=== PATIENT | male | born 1965 | race Hispanic/Latino ===

== ENCOUNTER 2017-09-22 09:46 | Observation (INO) | payer SELFPAY ==
[2017-09-22 10:36] LABS: #Eosinphils 0.2 thou/uL (0.0-0.7); #Lymphocytes 1.6 thou/uL (1.20-3.40); #Monocytes 0.7 thou/uL (0.11-0.59); #Neutrophils 4.8 thou/uL (1.40-6.50); %Basophils 0.6 % (0.0-1.0); %Lymphocytes 22.3 % (21.0-51.0); %Monocytes 8.8 % (0.0-10.0); %Neutrophils 65.2 % (42.0-75.0); Hemoglobin 13.6 g/dL (14.0-18.0); Mean Corpuscular HGB CONC 34.1 g/dL (32.0-36.0); Mean Corpuscular Hemoglobin 30.7 pg (27.0-31.0); Mean Corpuscular Volume 90.1 fl (80.0-94.0); Mean Platelet Volume 6.8 fL (7.4-10.4); Platelet Count 237 thou/uL (130-400); RBC Distribution Width 12.4 % (11.5-14.5); Red Blood Cell (RBC) Count 4.43 mill/uL (4.70-6.10); White Blood Cell (WBC) Count 7.3 thou/uL (4.8-10.8)
[2017-09-22] MEDS ORDERED: hydrALAZINE 20 MG/ML VIAL ONE ×2 (10:40→11:49)
[2017-09-22 10:56] LABS: ALT (SGPT) 13 U/L (8-55); AST (SGOT) 15 U/L (5-34); Albumin 3.8 g/dL (3.5-5.0); Alkaline Phosphatase 81 U/L (40-150); Anion Gap 13 mmol/L (10-20); BUN (Urea Nitrogen) 35 mg/dL (8.4-25.7); Bilirubin, Total 0.4 mg/dL (0.2-1.2); Calc. Creatinine Clearance 0 mL/min (70-130); Carbon Dioxide 22 mmol/L (22-29); Chloride 110 mmol/L (98-107); Estimated GFR-MDRD 24; Globulin 2.9 g/dL (2.4-3.5); Glucose 115 mg/dL (70-105); Potassium 4.8 mmol/L (3.5-5.1); Protein, Total 6.7 g/dL (6.0-8.3); Sodium 140 mmol/L (136-145)
[2017-09-22 11:00] LABS: CKMB 2.1 ng/mL (0-6.6); Troponin I Less than 0.010 ng/mL (< 0.028)
--- NOTE | 2017-09-22 11:44 | RAD ---
PORTABLE UPRIGHT FRONTAL CHEST RADIOGRAPH: Date: 09/22/17 COMPARISON: 06/12/15. HISTORY: Chest palpitations. FINDINGS: There is prominence of the cardiac silhouette, which may signify magnification and/or cardiac enlarge ment. No pneumothorax, pleural fluid, lobar consolidation, or alveolar edema. IMPRESSION: No acute findings. POS: [facility]
[2017-09-22 11:54] LABS: Bilirubin Negative (Negative); Blood, Urine Trace (Negative); Clarity CLEAR (Clear); Glucose, Urine (Dipstick) Negative (Negative); Leukocyte Negative (Negative); Nitrite Negative (Negative); Protein, Urine (Dipstick) 300 mg/dL (Neg-Trace); Specific Gravity, Urine 1.012 (1.002-1.036); Urobilinogen 0.2 mg/dL (0.2-1.0); pH, Urine 6.5 (5.0-9.0)
[2017-09-22 11:56] LABS: Bacteria/HPF None Seen HPF (None Seen); Hyaline Casts/LPF 0-3 HYALINE CAST LPF (0-3 Hyaline); Pathc Cast-AUWi Flag 0.14 (0-2.49); Squamous Epithelial None Seen HPF (0-3); WBC/HPF None Seen HPF (0-3)
--- NOTE | 2017-09-22 12:42 | PDOC.FPRHP ---
- History of Present Illness Chief Complaint: SOB, pre-syncope History of Present Illness: PCP: [facility] Call Code Status: Full 52 yo M w/ pmh of HTN and HLD presents for evaluation of acute onset SOB. Pt reports he was at work when he suddenly became SOB and and felt lighteheaded. He denies LOC. Denies cp, palpitations, nvdc, fever, chills, recent illnesses. Does report some swelling of the hands which is chronic. Pt reports that these symptoms have been recurring for the past 3 years and occur approximately 1-2X/ Year. He was previously on antihypertensive and statin but has been off medications for approx 1 month. He denies headaches and changes in vision. Reports symtpoms lasted approx 30 seconds and subsided. This is similar to his episodes in the past. ED Course: Hydralizine 10mg X2 - Allergies/Adverse Reactions Allergies Allergy/AdvReac Type Severity Reaction Status Date / Time No Known Allergies Allergy Verified 09/22/17 15:32 - Home Medications Medication Instructions Recorded Confirmed Type No Known [No Known] 09/22/17 09/22/17 History - History PMHx: HTN, HLD PSHx: None FHx: Maternal HTN Social: Denies tobacco and drug use, reports social alcohol use occasionally on weekends - Review of Systems General: denies: fever/chills, weight/appetite/sleep changes, night sweats, fatigue Eyes: denies: eye pain, vision changes ENT: denies: nasal congestion, rhinorrhea Respiratory: reports: shortness of breath. denies: cough, congestion, exercise intolerance Cardiovascular: reports: edema. denies: chest pain, palpitation, paroxysmal nocturnal dyspnea, orthopnea Gastrointestinal: denies: nausea, vomiting, diarrhea, constipation, abdominal pain Genitourinary: denies: dysuria, polyuria Skin: denies: rashes, jaundice Musculoskeletal: denies: pain, tenderness, stiffness, swelling, arthritis/ arthralgias Neurological: reports: weakness. denies: numbness, syncope Psychological: denies: anxiety - Vital signs BP: 204/106 HR: 77 RR: 20 Tmax: 98.2 F Pox: 98% on RA Wt: 86.18 kg - Physical Exam Constitutional: NAD, awake, alert and oriented HEENT: normocephalic and atraumatic, PERRLA, EOMI, no scleral icterus, TM's clear and intact, grossly normal hearing, MMM, oropharynx clear, other ( conjunctival injection b/l) Neck: supple, FROM, trachea midline, no LAD -Neck: Mild hepatojugular reflux Chest: no-tender to palpation, no lesions Heart: RRR, normal S1/S2, no murmurs/rubs/gallops, pulses present, other (mild pedal and carpal edema) FMR H&P: Results - Labs Result Diagrams: 09/22/17 10:23 09/22/17 10:23 Lab results: WBC 7.3 thou/uL (4.8-10.8) 09/22/17 10:23 Hgb 13.6 g/dL (14.0-18.0) L 09/22/17 10:23 Hct 39.9 % (42.0-52.0) L 09/22/17 10:23 MCV 90.1 fl (80.0-94.0) 09/22/17 10:23 Plt Count 237 thou/uL (130-400) 09/22/17 10:23 Neutrophils % 65.2 % (42.0-75.0) 09/22/17 10:23 Sodium 140 mmol/L (136-145) 09/22/17 10:23 Potassium 4.8 mmol/L (3.5-5.1) 09/22/17 10:23 Chloride 110 mmol/L (98-107) H 09/22/17 10:23 Carbon Dioxide 22 mmol/L (22-29) 09/22/17 10:23 BUN 35 mg/dL (8.4-25.7) H 09/22/17 10:23 Creatinine 2.74 mg/dL (0.6-1.3) H 09/22/17 10:23 Glucose 115 mg/dL (70-105) H 09/22/17 10:23 Calcium 9.0 mg/dL (7.8-10.44) 09/22/17 10:23 Total Bilirubin 0.4 mg/dL (0.2-1.2) 09/22/17 10:23 AST 15 U/L (5-34) 09/22/17 10:23 ALT 13 U/L (8-55) 09/22/17 10:23 Alkaline Phosphatase 81 U/L (40-150) 09/22/17 10:23 CK-MB (CK-2) 2.1 ng/mL (0-6.6) 09/22/17 10:23 Serum Total Protein 6.7 g/dL (6.0-8.3) 09/22/17 10:23 Albumin 3.8 g/dL (3.5-5.0) 09/22/17 10:23 Urine Ketones Negative mg/dL (Negative) 09/22/17 11:33 Urine Blood Trace (Negative) H 09/22/17 11:33 Urine Nitrite Negative (Negative) 09/22/17 11:33 Ur Leukocyte Esterase Negative (Negative) 09/22/17 11:33 Urine RBC 7-10 HPF (0-3) H 09/22/17 11:33 Urine WBC None Seen HPF (0-3) 09/22/17 11:33 Ur Squamous Epith Cells None Seen HPF (0-3) 09/22/17 11:33 Urine Bacteria None Seen HPF (None Seen) 09/22/17 11:33 - EKG Interpretation EKG: NSR - Radiology Interpretation Chest x-ray Status: image reviewed by me, report reviewed by me Additional comment: No acute cardiopulmonary process. Cardiomegaly. FMR H&P: A/P - Problem List (1) Pre-syncope Current Visit: Yes Status: Acute (2) Shortness of breath Current Visit: Yes Status: Acute Code(s): R06.02 - SHORTNESS OF BREATH (3) Cardiomegaly Current Visit: Yes Status: Acute Code(s): I51.7 - CARDIOMEGALY (4) HTN (hypertension) Current Visit: Yes Status: Chronic Code(s): I10 - ESSENTIAL (PRIMARY) HYPERTENSION (5) HLD (hyperlipidemia) Current Visit: Yes Status: Chronic Code(s): E78.5 - HYPERLIPIDEMIA, UNSPECIFIED (6) Kidney disease Current Visit: Yes Status: Suspected Code(s): N28.9 - DISORDER OF KIDNEY AND URETER, UNSPECIFIED - Plan 1) Presyncope: Unknown etiology, possibly cardiac. Will admit to tele obs. -initial troponins negative, trend -mild cardiomegaly on CXR, will check BNP -Gentle IVF resuscitation -Check orthostatics -AM stress and Echo -TSH, Mag, Phos 2) HTN: Severe, uncontrolled -Pt will ultimately need BP medication -will workup renal disease and consider am nephro consult -hydralizine prn for BP >180/110 - Hold BB and CCB for am stress 3) HLD: AM FLP, consider high intesnity statin 4) CKD: Currently stage 4 -previous ER visit showed elevated creatinine - will check PTH - FeNa - Bun/Cr ratio 12. Likely intrinsic, UA showed 300 protein -renal US for further eval -trend BMP and gentle IVF hydration 5) SOB, likley cardiac etiology. See #1 6) Cardiomegaly: on cxr, will check BNP -am echo and stress Disposition/LOS: Stable, </= 2 days FMR H&P: Upper Level - Pertinent history 52 yr old male with PMH of HTN and HLD presents for an episode of shortness of breath and feeling like he may pass out. 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 He walked for a bit and the lightheaded sensation improved. He does not currently feel short of breath in the ER. He wanted to go home but his insisted he go to the ER since this is the second occurrence this month. He reports sensation of shortness of breath for the last 2 years, unable to quantify how often. He denies LOC, chest pain, palpitations, orthopnea, PND, leg swelling, abdominal pain, vision changes. He does report a slight headache in the ER. He reports being on BP meds in the past but his last bottle in July and states it could be up to a year ago since he last took meds. - Pertinent findings Gen: NAD, resting and breathing easy on room air. Talks in full sentences without difficulty. Cardiac: RRR, no murmurs, rubs, or gallops. Lungs: CTAB, no wheezes, rhales, rhonchi, no crackles Neuro: CN 2-12 intact, no focal deficits in BUE/BLE Ext: no swelling in BLE. left popliteal pulse 2 +, dorsalis pedis pulse 2+ in BLE. - Plan Date/Time: 09/22/17 1235 I, [Rocio Huffman], have evaluated this patient and agree with findings/plan as outlined by logistics intern resident. Pertinent changes/additions are listed here. 52 yr old male with PMH of untreated HLD and HTN presents with shortness of breath, now resolved. 1. hypertensive emergency -initial BP 209/113, improved with hydralazine. -initiate on oral antihypertensives -appears to have acute on chronic kidney disease -trops negative x 2, EKG with NSR, no ST elevation -obs to tele 2. SOB -check BNP -does not have symptoms c/w heart failure -mild cardiomegaly -nml O2 sats on RA 3. acute on chronic kidney disease - will check urine studies - provide IV fluid hydration -check BMP in AM -suspect this is secondary to severe untreated HTN. -consider kidney sono 4. HLD -FLP -initiate statin if ASCVD risk >7.5% Attending Addendum - Attending Addendum Date/Time: 09/22/17 1720 I personally evaluated the patient and discussed the management with Dr. Taylor I agree with the History, Examination, Assessment and Plan documented above with any addition or exceptions noted below-Briefly this is a 52 year old male with h/o HTN and HLD who presented with episdoe of near syncope and SOB while at work. 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 Symptoms improved by the time she got there but brought him to ER for further evalaution as this was the second episdoe this has happened this month. Patient has been out of BP medications for about 6 months per . Denies any CP, SOB, MARY, visual changes, N/V currently. PMH/PSH/All/Meds/SH reviewed and agree with resident's documentation. Afebrile BP 186/101 Exam repeated by me and agree with resident's findings. Labs BUN 35 Cr 2.74 Trop I< 0.010 x3 U/A 4+ protein EKG- NSR, no ST changes. A/P: 1) Pre-syncope- placed on obs; will monitor on telemetry for any arrhythmias. 2) Uncontrolled HTN- will restart antihypertensives; continue to monitor. 3) CKD stage IV- most likely intrinsic renal disease due to uncontrolled HTN; gentle hydratiion overnight to see if there is any improvement. Consider nephrology consult.
[2017-09-22 14:00] LABS: Troponin I Less than 0.010 ng/mL (< 0.028)
[2017-09-22] MEDS ORDERED: hydrALAZINE 20 MG/ML VIAL SLOW IVP PRN (15:26)
[2017-09-22] MEDS ORDERED: Ondansetron HCl/PF 4 MG/2 ML Vial IVP PRN (15:26)
[2017-09-22 15:29] VITALS: BMI 32.8
[2017-09-22] MEDS: Sodium Chloride 0.9% 1,000 ML IV SCH (15:57)
[2017-09-22 16:22] LABS: Hemoglobin A1c 5.4 % (4.0-6.0)
[2017-09-22 16:29] LABS: Magnesium 2.4 mg/dL (1.6-2.6); Phosphorus 2.5 mg/dL (2.3-4.7)
[2017-09-22] MEDS ORDERED: Amlodipine 5 MG TAB PO SCH (16:30)
[2017-09-22 16:34] LABS: Troponin I Less than 0.010 ng/mL (< 0.028)
[2017-09-22] MEDS: Acetaminophen 325 MG TAB PO PRN ×2 (16:48→20:51)
[2017-09-22 16:50] LABS: Osmolality, Urine 360 mOsm/kg (300-900)
[2017-09-22 16:53] LABS: Sodium, Urine 111 mmol/L (Not Available)
--- NOTE | 2017-09-22 17:47 | ULT ---
RENAL ULTRASOUND: 09/22/17 HISTORY: Abnormal renal function. Both kidneys measures approximately 10 cm in length. There is increased cortical echogenicity bilater ally, consistent with chronic medical renal disease. Renal cortical thickness is preserved. There is no evidence of hydronephrosis, mass or cystic lesion. The bladder is mildly distended and appears unr emarkable. There is evidence of prostatic hypertrophy. IMPRESSION: Increased cortical echogenicity bilaterally consistent with medical renal disease. POS: [facility]
[2017-09-22] MEDS ORDERED: Labetalol HCl 100 MG/20 ML VIAL SLOW IVP PRN (20:42)
[2017-09-22] MEDS: hydrALAZINE 25 MG TAB PO SCH (23:34)
[2017-09-23] MEDS: Sodium Chloride 0.9% 1,000 ML IV SCH (00:12)
[2017-09-23 05:15] LABS: Anion Gap 13 mmol/L (10-20); BUN (Urea Nitrogen) 31 mg/dL (8.4-25.7); Calc. Creatinine Clearance 43 mL/min (70-130); Calcium 8.4 mg/dL (7.8-10.44); Carbon Dioxide 20 mmol/L (22-29); Cardiac Risk 4.5 (Less than 4.5); Chloride 111 mmol/L (98-107); Cholesterol 197 mg/dl (< 200 Desired); Estimated GFR-MDRD 29; Glucose 111 mg/dL (70-105); HDL Cholesterol 44 mg/dL (>60 Neg Risk); LDL Cholesterol, Calculated 101 mg/dL; Potassium 5.3 mmol/L (3.5-5.1); Sodium 139 mmol/L (136-145); Triglycerides 260 mg/dL (Less than 150)
--- NOTE | 2017-09-23 08:08 | PDOC.FM ---
- Subjective Subjective: No acute events overnight. Pt was NSR on telemetry overnight. Denies cp, sob, nvdc. Denies difficulty urinating. - Objective Vital Signs & Weight: Vital Signs (12 hours) Temp Pulse Resp BP BP Pulse Ox 09/23/17 08:00 98.4 F 78 20 09/23/17 03:15 98.4 F 78 20 125/68 98 09/22/17 23:34 81 09/22/17 23:09 97.7 F 81 18 130/72 98 09/22/17 21:57 83 131/73 09/22/17 20:52 87 09/22/17 20:36 87 186/99 H 09/22/17 20:34 90 205/97 H Weight Weight 84.051 kg I&O: 09/22/17 09/23/17 09/24/17 06:59 06:59 06:59 Intake Total 2243 Output Total 600 300 Balance 1643 -300 Result Diagrams: 09/22/17 10:23 09/23/17 04:34 <Paul Taylor - Last Filed: 09/23/17 08:07> - Objective Vital Signs & Weight: Vital Signs (12 hours) Temp Pulse Resp BP BP Pulse Ox 09/23/17 13:23 150/87 H 09/23/17 11:38 180/102 H 09/23/17 11:13 98.0 F 71 16 187/98 H 99 09/23/17 08:36 66 166/89 H 09/23/17 08:00 98.4 F 78 20 09/23/17 07:33 98.2 F 70 20 173/90 H 99 Weight Weight 84.051 kg I&O: 09/22/17 09/23/17 09/24/17 06:59 06:59 06:59 Intake Total 2243 Output Total 600 300 Balance 1643 -300 Result Diagrams: 09/22/17 10:23 09/23/17 04:34 <Moises Trejo - Last Filed: 09/23/17 15:40> Phys Exam - Physical Examination Constitutional: NAD HEENT: PERRLA, moist MMs, sclera anicteric Neck: no nodes, no JVD Respiratory: no wheezing, no rales, no rhonchi, clear to auscultation bilateral Cardiovascular: RRR, no significant murmur, no rub Gastrointestinal: soft, non-tender, no distention, positive bowel sounds Musculoskeletal: no edema, pulses present Neurological: non-focal, moves all 4 limbs Skin: normal turgor, cap refill <2 seconds <Paul Taylor - Last Filed: 09/23/17 08:07> Dx/Plan (1) Pre-syncope Status: Acute (2) Shortness of breath Code(s): R06.02 - SHORTNESS OF BREATH Status: Acute (3) Cardiomegaly Code(s): I51.7 - CARDIOMEGALY Status: Suspected (4) HTN (hypertension) Code(s): I10 - ESSENTIAL (PRIMARY) HYPERTENSION Status: Chronic (5) HLD (hyperlipidemia) Code(s): E78.5 - HYPERLIPIDEMIA, UNSPECIFIED Status: Chronic (6) Kidney disease Code(s): N28.9 - DISORDER OF KIDNEY AND URETER, UNSPECIFIED Status: Suspected - Plan Plan: 1) Presyncope: Unknown etiology, possibly cardiac. Will admit to tele obs. -Tropronins negative - NSR on telemetry overnight - Pt currently asymptomatic - Likely stable for DC with instruction to f/u with PCP 2) HTN: Severe, uncontrolled -Pt will ultimately need BP medication, started amlodipine and BP stabilized -Hydralazine prn -stable for DC 3) HLD: AM FLP -ASCVD >7.5%, mod-high intensity statin 4) CKD: Currently stage 4 - previous ER visit showed elevated creatinine - FeNa showed post obstructive pattern and renal US showed mildly distended bladder, additionally showed findings consistent with chronic renal disease - Check post void residuals - I/O straight cath if >500mL - Finasteride QHS - Check PSA - Consider Nephro and Uro consult pending results 5) sabas URBAN cardiac etiology vs dehydration. See #1. Resolved. 6) Cardiomegaly: on cxr -BNP normal - Ok for DC later today Dispo: Likely DC to home today pending bladder scan to r/o urinary retention. Pt will need op f/u and continued BP mediactions. CM consult for unfunded status. <Paul Taylor - Last Filed: 09/23/17 08:07> Attending Addendum - Attending Addendum Date/Time: 09/23/17 8227 I personally evaluated the patient and discussed the management with Dr. Talyor. I agree with and repeated the History, Examination, Assessment and Plan documented above with any addition or exceptions noted below. Patient asymptomatic currently. Denies cp/sob/n/v/f/c or any other complaint and would like to go home. BP improved, restarted home medications he has been off of. Inc K 2/2 hemolysis. ОЛЕГ on CKD likely prerenal + hypertensive urgency. Emphasized need for follow up and, possibility of needing dialysis in the future and risks of uncontrolled and untreated HTN. He has follow up and if BP controlled, K normalized and no symptoms can be d/c'd with appropriate outpatient referrals. <Moises Trejo - Last Filed: 09/23/17 15:40>
[2017-09-23] MEDS: hydrALAZINE 25 MG TAB PO SCH (08:36)
[2017-09-23] MEDS ORDERED: Amlodipine 5 MG TAB PO SCH (09:00)
[2017-09-23] MEDS ORDERED: Aspirin 81 mg Enteric Coated Tablet PO SCH (09:00)
[2017-09-23 11:33] VITALS: TEMP 98
[2017-09-23] MEDS ORDERED: Carvedilol 6.25 MG TAB PO SCH (12:30)
[2017-09-23 13:25] VITALS: BP 150/87
[2017-09-23] MEDS ORDERED: Atorvastatin Calcium 40 MG TAB PO SCH (21:00)
--- NOTE | 2017-09-24 15:26 | DIS-2 ---
DATE OF ADMISSION: 09/22/2017 DATE OF DISCHARGE: 09/23/2017 LOCATION: [facility] in [place], [place]. ADMITTING ATTENDING: Alyx Mary M.D. DISCHARGE ATTENDING: Moises Trejo M.D. RESIDENT PHYSICIAN: Paul Taylor D.O. CONSULTS: None. PROCEDURES: 1. Chest x-ray done on 09/22/2017 showed no acute findings. 2. Renal ultrasound done on 09/22/2017 showed increased cortical echogenicity bilaterally consistent with medical renal disease. Additionally, the ultrasound showed evidence of prostatic hypertrophy. PRIMARY DIAGNOSES: 1. Presyncope. 2. Chronic kidney disease. SECONDARY DIAGNOSES: 1. Hypertension. 2. Hyperlipidemia. DISCHARGE MEDICATIONS: 1. Amlodipine 5 mg p.o. daily. 2. Aspirin 81 mg p.o. daily. 3. Atorvastatin 40 mg p.o. at bedtime. 4. Coreg 12.5 mg p.o. b.i.d. DISCONTINUED MEDICATIONS: None. HISTORY OF PRESENT ILLNESS AND HOSPITAL COURSE: The patient is a 52-year-old male with past medical history of known hypertension and hyperlipidemia for which he was previously on medications at home, who had not been taking them for approximately 1 month prior to presentation to the ED. His main com plaint at that time was acute onset shortness of breath and some mild lightheadedness. He denied any loss of consciousness. Denied any chest pain, palpitations, nausea, vomiting, diarrhea, fever, chil ls, or recent illnesses. He did report some swelling in the hands, which has been chronic. 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 He reported the symptoms lasted approximately 30 seconds and then subside. His vital signs o n admission showed afebrile, temperature normal, pulse rate; however, he was hypertensive up to 187/1 02 max. Pertinent labs from this visit showed a hemoglobin of 13.6, hematocrit 39.9. Chemistry studies showe d a potassium of 5.3, sodium normal, chloride 111, bicarbonate 20, BUN 31 and creatinine 2.34 with an estimated GFR of 29. Hemoglobin A1c is 5.4. Fasting lipid panel showed a triglyceride level of 260 , total cholesterol of 197, LDL cholesterol of 101, HDL cholesterol 44. TSH was 1.3963. Parathyroid hormone intact was 90.0, slightly elevated. Urine osmolality was 360, urine creatinine was 33.56, u rine sodium was 111. Urinalysis was pertinent for 300 urine protein, trace urine blood and 7 to 10 u rine rbc's. The patient's calculated fractional excretion of sodium was consistent with a postobstru ctive pattern; however, the patient's postvoid residual was approximately 56. Given the findings on the renal ultrasound, the patient is likely suffering from chronic kidney disease and was instructed as such and additionally instructed to follow up outpatient with the primary care provider. Ultimately regarding episodes of shortness of breath, the patient's vitals remained stable. He was m onitored on telemetry for over 24 hours where he remained in sinus rhythm throughout. For the hyperk alemia, he was treated with a single dose of Kayexalate. Instructed to follow up with outpatient [facility] provider. Overall, the patient had an uncomplicated hospital course. He had no episodes of shortness of breath . Once he had arrived to the hospital and he was worked up for what appears to be chronic renal dise ase. DISPOSITION: The patient left the hospital in stable condition. DISCHARGE INSTRUCTIONS: 1. Location: Home. 2. Diet: Heart healthy. 3. Activity: Ad wendi. 4. Followup: Follow up with primary care provider in 7-10 days.
== END 2017-09-23 13:37 | disposition home or self-care (01) ==
LOC: ERS 09:46 → 2SW 11:49
PROVIDERS: ADMIT Family Medicine; ATTEND Family Medicine
DX: R06.02 Shortness of breath (principal); R55 Syncope and collapse; E78.5 Hyperlipidemia, unspecified; I51.7 Cardiomegaly; I16.1 Hypertensive emergency; I12.9 Hypertensive chronic kidney disease with stage 1 through stage 4 chronic kidney disease, or unspecified chronic kidney disease; N18.4 Chronic kidney disease, stage 4 (severe); N17.9 Acute kidney failure, unspecified
CPT/HCPCS: 36415; 51798; 71045; 76770; 80048; 80053; 80061; 81003; 81015; 82553; 82570; 83036; 83735; 83880; 83935; 83970; 84100; 84153; 84300; 84443; 84484; 85025; 93005; 96361; 96374; 96375; 96376; G0378; J0360

== ENCOUNTER 2018-11-03 02:30 | Inpatient (IN) | payer SELFPAY ==
[2018-11-03 03:07] LABS: #Basophils 0.1 thou/uL (0.0-0.2); #Eosinphils 0.3 thou/uL (0.0-0.7); #Lymphocytes 1.8 thou/uL (1.20-3.40); #Monocytes 0.6 thou/uL (0.11-0.59); #Neutrophils 4.6 thou/uL (1.40-6.50); %Basophils 0.7 % (0.0-1.0); %Eosinophils 4.1 % (0.0-10.0); %Lymphocytes 24.4 % (21.0-51.0); %Monocytes 7.6 % (0.0-10.0); %Neutrophils 63.2 % (42.0-75.0); Hemoglobin 12.7 g/dL (14.0-18.0); Mean Corpuscular HGB CONC 33.6 g/dL (32.0-36.0); Mean Corpuscular Hemoglobin 31.3 pg (27.0-31.0); Mean Corpuscular Volume 93.3 fL (78.0-98.0); Mean Platelet Volume 7.1 fL (7.4-10.4); Platelet Count 233 thou/uL (130-400); RBC Distribution Width 12.1 % (11.5-14.5); Red Blood Cell (RBC) Count 4.06 mill/uL (4.70-6.10); White Blood Cell (WBC) Count 7.3 thou/uL (4.8-10.8)
[2018-11-03 03:28] LABS: ALT (SGPT) 18 U/L (8-55); AST (SGOT) 15 U/L (5-34); Alkaline Phosphatase 87 U/L (40-150); Anion Gap 14 mmol/L (10-20); BUN (Urea Nitrogen) 49 mg/dL (8.4-25.7); Bilirubin, Total 0.4 mg/dL (0.2-1.2); Calc. Creatinine Clearance 0 mL/min (70-130); Calcium 8.8 mg/dL (7.8-10.44); Carbon Dioxide 22 mmol/L (22-29); Chloride 107 mmol/L (98-107); Estimated GFR-MDRD 12; Globulin 3.2 g/dL (2.4-3.5); Glucose 118 mg/dL (70-105); Potassium 4.4 mmol/L (3.5-5.1); Protein, Total 7.2 g/dL (6.0-8.3); Sodium 139 mmol/L (136-145)
[2018-11-03] MEDS ORDERED: hydrALAZINE 20 MG/ML VIAL ONE (03:40)
[2018-11-03] MEDS: Sodium Chloride 0.9% 1,000 ML IV SCH (09:33)
[2018-11-03] MEDS: Amlodipine 10 MG TAB PO SCH (09:35)
[2018-11-03] MEDS: Heparin 5,000 UNITS/ML VIAL SC SCH ×3 (09:36→20:57)
[2018-11-03] MEDS: Carvedilol 6.25 MG TAB PO SCH ×2 (09:36→20:56)
[2018-11-03 11:16] LABS: Bilirubin Negative (Negative); Blood, Urine Small (Negative); Glucose, Urine (Dipstick) Negative (Negative); Leukocyte Negative (Negative); Nitrite Negative (Negative); Protein, Urine (Dipstick) > or equal to 300 mg/dL (Neg-Trace); Urobilinogen 0.2 mg/dL (Less than 2)
[2018-11-03 11:20] LABS: Clarity Clear (Clear)
[2018-11-03 11:26] LABS: Bacteria/HPF None Seen HPF (None Seen); RBC/HPF 0-3 HPF (0-3); Squamous Epithelial 0-3 HPF (0-3); WBC/HPF 0-3 HPF (0-3)
--- NOTE | 2018-11-03 11:37 | HP ---
CHIEF COMPLAINT: Headache, elevated blood pressure, and sweating. HISTORY OF PRESENT ILLNESS: The patient is a 53-year-old male, only speaking Gibraltarian, who presented to the emergency room with elevated blood pressure at 255/123. Apparently, he woke up in the middle of the night, was sweating a lot and checked his blood pressure and it was elevated and he made decision to come to the emergency room for further evaluation and help. Apparently, he went to the doctor on Thursday. He got prescription for blood pressure medications, carvedilol and amlodipine, but he started both of them yesterday. He does not have much complaints to offer besides above mentioned complaints except for some blurred vision, but now when the blood pressure is better, his blurred vision has gone and he is not sweating and he does not have much of any headache at this time of my evaluation. PAST MEDICAL HISTORY: He does not have any significant past medical history except for hypertension and hyperlipidemia. PAST SURGICAL HISTORY: None. MEDICATIONS: 1. Carvedilol 12.5 mg twice a day. 2. Amlodipine 10 mg once a day. ALLERGIES: NONE. SOCIAL HISTORY: He does not drink alcohol. He does not smoke. He does not use any illicit drugs. FAMILY HISTORY: Mother has hypertension and father does not have any medical problems, both of them are alive. REVIEW OF SYSTEMS: All 14 systems were reviewed and negative except for HPI symptoms. PHYSICAL EXAMINATION: VITAL SIGNS: Blood pressure is 180/96, pulse is 68, respiratory rate is 18, O2 saturation is 98% on room air, his temperature is 98.9. GENERAL: He is not in any distress during my visit. HEENT: His head is atraumatic, normocephalic. Eyes are PERRLA. Sclerae are nonicteric. Oral mucosa is moist. NECK: Supple. LUNGS: Clear. HEART: S1, S2 normal. No S3. No S4. ABDOMEN: Soft, nontender. Bowel sounds are present. No organomegaly. EXTREMITIES: No clubbing, cyanosis, or edema. Pulses on both tibialis posterior and dorsalis pedis arteries slightly decreased similar bilaterally. NEUROLOGICAL: He is alert and oriented x4. There is no any motor or sensory deficits. LABORATORY DATA: Hemoglobin of 12.7, white count of 7.3, hematocrit of 37.8, platelet count 233,000. Sodium of 139, potassium 4.4, chloride 107, CO2 of 22, BUN 49, creatinine 5.22, glucose 118, and the rest of chemistry is within normal limits. IMPRESSION: 1. Hypertensive emergency. 2. Acute renal failure of unclear etiology at this point. 3. Normocytic anemia. 4. Hyperlipidemia per history. 5. Anxiety per history. 6. Depression per history. PLAN: Plan is full admission. We will obtain a urinalysis. We will check his creatinine and urine electrolytes. We will get Nephrology consult. We will obtain ultrasound on his kidneys to rule out any obstruction and we will do input and output. He is going to be on heparin for DVT prophylaxis and will continue his Coreg and amlodipine. Job ID: [id number]
--- NOTE | 2018-11-03 12:02 | ULT ---
BILATERAL RENAL ULTRASOUND: Date: 11/03/18 HISTORY: Acute kidney failure. FINDINGS: Both kidneys measure approximately 10.0 cm length. There is no evidence of hydronephrosis. Both kidne ys show increased cortical echogenicity consistent with chronic renal medical disease. The urinary bladder is mildly distended. There is prostatic hypertrophy noted. IMPRESSION: 1. Increased cortical echogenicity of both kidneys indicate chronic medical renal disease. 2. Prostatic hypertrophy impinging on the floor of the bladder. POS: [facility]
[2018-11-03 12:05] LABS: Creatinine, Urine 31.06 mg/dL (63-166); Potassium, Urine 24.2 mmol/L
[2018-11-03] MEDS ORDERED: hydrALAZINE 20 MG/ML VIAL SLOW IVP PRN (13:49)
--- NOTE | 2018-11-03 14:25 | CON ---
DATE OF CONSULTATION: 11/03/2018 CONSULTING PHYSICIAN: Saji Saavedra MD. REASON FOR CONSULT: Acute kidney injury. REASON FOR ADMISSION: Headache and blood pressure elevation. HISTORY OF PRESENT ILLNESS: This is a 53-year-old male with history of hypertension and hyperlipidemia, who came to the hospital with sweating, headache, and high blood pressure and is being evaluated. He was also found to have elevated renal function, and Nephrology was consulted. No chest pain and palpitations reported to me. He is feeling better. PAST MEDICAL HISTORY: Positive for hypertension, hyperlipidemia. PAST SURGICAL HISTORY: None. HOME MEDICATIONS: Carvedilol, amlodipine. ALLERGIES: NO KNOWN DRUG ALLERGIES. SOCIAL HISTORY: No smoking, alcohol, or illicit drugs. FAMILY HISTORY: No history of kidney disease. REVIEW OF SYSTEMS: CONSTITUTIONAL: Negative for weight loss or gain, ability to conduct usual activities. SKIN: Negative for rash, itching. EYES: Negative for double vision, pain. ENT/MOUTH: Negative for nose bleeding, neck stiffness, pain, tenderness. CARDIOVASCULAR: Negative for palpitations, dyspnea on exertion, orthopnea. RESPIRATORY: Negative for shortness of breath, wheezing, cough, hemoptysis, fever or night sweats. GASTROINTESTINAL: Negative for poor appetite, abdominal pain, heartburn, nausea , vomiting, constipation, or diarrhea. GENITOURINARY: Negative for urgency, frequency, dysuria, nocturia. MUSCULOSKELETAL: Negative for pain, swelling. NEUROLOGIC/PSYCHIATRIC: Negative for anxiety, depression. ALLERGY/IMMUNOLOGIC: Negative for skin rash, bleeding tendency. PHYSICAL EXAMINATION: GENERAL: This is a well-built male, in no apparent distress. VITAL SIGNS: Temperature 97.5, pulse 67, respiratory rate 18, blood pressure 181/92. HEENT: Atraumatic, normocephalic. Oral mucosa is moist. NECK: Supple. CV: S1 and S2. Rate and rhythm regular. RESPIRATORY: Clear. GI: Abdomen is soft. MUSCULOSKELETAL: 1+ edema. DERMATOLOGIC: No skin rash. NEUROLOGIC: Alert and awake. PSYCHIATRIC: Normal mood and affect. LABORATORY DATA: Hemoglobin is 12.7. Potassium is 4.4, BUN is 49, creatinine is 5.2. ASSESSMENT AND PLAN: 1. Acute kidney injury. Agree with hydration and monitor blood pressure. 2. Hypertension. We will check a renin aldosterone level. 3. Proteinuria. We will check for ANCA and anti-GBM. No history of any diabetes. will arrange renal biopsy. To continue on blood pressure control and hold aspirin. 4. Edema, controlled. 5. We will monitor. We will check labs and follow. Job ID: [id number]
[2018-11-03] MEDS: Acetaminophen 325 MG TAB PO PRN ×2 (16:24→21:03)
[2018-11-04 05:38] LABS: #Eosinphils 0.3 thou/uL (0.0-0.7); #Lymphocytes 1.7 thou/uL (1.20-3.40); #Monocytes 0.5 thou/uL (0.11-0.59); #Neutrophils 5.1 thou/uL (1.40-6.50); %Basophils 0.4 % (0.0-1.0); %Eosinophils 3.5 % (0.0-10.0); %Lymphocytes 22.2 % (21.0-51.0); %Monocytes 6.3 % (0.0-10.0); %Neutrophils 67.5 % (42.0-75.0); Mean Corpuscular HGB CONC 32.8 g/dL (32.0-36.0); Mean Corpuscular Hemoglobin 30.7 pg (27.0-31.0); Mean Corpuscular Volume 93.7 fL (78.0-98.0); Mean Platelet Volume 7.7 fL (7.4-10.4); Platelet Count 238 thou/uL (130-400); Red Blood Cell (RBC) Count 3.89 mill/uL (4.70-6.10); White Blood Cell (WBC) Count 7.6 thou/uL (4.8-10.8)
[2018-11-04 05:55] LABS: Anion Gap 11 mmol/L (10-20); BUN (Urea Nitrogen) 53 mg/dL (8.4-25.7); Calc. Creatinine Clearance 22 mL/min (70-130); Calcium 8.9 mg/dL (7.8-10.44); Carbon Dioxide 22 mmol/L (22-29); Chloride 107 mmol/L (98-107); Estimated GFR-MDRD 13; Glucose 128 mg/dL (70-105); Potassium 4.9 mmol/L (3.5-5.1); Sodium 135 mmol/L (136-145)
[2018-11-04] MEDS: Sodium Chloride 0.9% 1,000 ML IV SCH (05:55)
[2018-11-04] MEDS: Carvedilol 6.25 MG TAB PO SCH ×2 (09:40→20:06)
[2018-11-04] MEDS: Amlodipine 10 MG TAB PO SCH (09:42)
[2018-11-04] MEDS: Heparin 5,000 UNITS/ML VIAL SC SCH ×3 (09:43→20:06)
--- NOTE | 2018-11-04 12:10 | PRG ---
DATE OF SERVICE: 11/04/2018 SUBJECTIVE: Patient was seen and examined at bedside and overnight events noted. Patient denies any shortness of breath or chest pain or palpitation. No history of nausea or vomiting or diarrhea or fever or chills or cramps. OBJECTIVE: GENERAL: This is a well-built male, in no apparent distress. VITAL SIGNS: Temperature 97.9. Pulse 63. Respiratory rate 18. Blood pressure 154/84. HEENT: Atraumatic, normocephalic. Oral mucosa is moist NECK: Supple. CARDIOVASCULAR: S1, S2 heard. Rate and rhythm regular. RESPIRATORY: Clear to auscultation. GASTROINTESTINAL: Abdomen is soft. MUSCULOSKELETAL: No tenderness. No edema. DERMATOLOGIC: No skin rash. NEUROLOGIC: Alert and awake and oriented X3. No focal neurologic deficits. Moving all the extremities. PSYCHIATRIC: Mood and affect normal. LABORATORY DATA: Potassium is 4.9, BUN is 53, and creatinine is 4.8. ASSESSMENT AND PLAN: 1. Acute kidney injury, getting better, but significant proteinuria. We will arrange for renal biopsy. 2. Proteinuria. We will check immunological workup and will also have renal biopsy. 3. Hypertension, stable. 4. Edema, controlled. Control blood pressure. Avoid aspirin for renal biopsy, and we will await renal biopsy. Job ID: [id number]
--- NOTE | 2018-11-04 14:43 | PRG ---
DATE OF SERVICE: 11/04/2018 SUBJECTIVE: The patient is seen and examined at bedside. He is feeling somewhat better. is present in the room during my visit since he does not speak much Sinhala and she translates everything what I explained. OBJECTIVE: VITAL SIGNS: Blood pressure is 161/65, temperature is 97.4, pulse is 65, respiratory rate 16, and O2 saturation 97% on room air. HEENT: His head is atraumatic and normocephalic. Eyes are PERRLA. Sclerae are nonicteric. Oral mucosa is moist. NECK: Supple. LUNGS: Clear. HEART: S1 and S2 normal. No S3. No S4. There is a 2/6 systolic murmur at the left sternal border. ABDOMEN: Soft, nontender, and nondistended. EXTREMITIES: No clubbing, cyanosis, or edema. NEUROLOGIC: He is alert and oriented x4. There is no any motor or sensory deficits. : Prostate exam was done and it showed normal sphincter, significantly large prostate. No nodules were palpated. Stool was not present in the rectum during this examination. LABORATORY DATA: Labs showed white count of 7.6, hemoglobin 12.0, hematocrit 36.5, and platelet count is 238,000. Sodium of 135, potassium 4.9, chloride 107, CO2 of 22, BUN 53, creatinine 4.8, glucose 128, 25-hydroxy vitamin D 24.2, PTH intact 382, cortisol 3.8. Urinalysis showed more than 300 protein, small amount of blood. Random total protein is 191. Urine creatinine 31, urine sodium 103, and urine potassium 24.2. Renal ultrasound showed increased cortical echogenicity of both kidneys indicate chronic medical renal disease. Also, there was prostatic hypertrophy impinging on the floor of the bladder. IMPRESSION: 1. Acute on chronic renal failure. Diagnostic workup in progress. He is on gentle hydration. His creatinine is slightly improved since yesterday, at 4.8 today. 2. Hypertensive emergency. Started on Coreg and amlodipine. Blood pressure is doing somewhat better, gradually is going down. 3. Normocytic anemia, most likely related to his chronic renal disease. 4. Hyperlipidemia. 5. Anxiety. 6. Depression. 7. Vitamin D deficiency. 8. Prostate hypertrophy. PLAN: Plan is to start him on Flomax and finasteride for his prostate. Workup of his kidney failure is still in progress. The patient's told me that they knew about kidney problems since last year. At this point, we are awaiting for more information on the test we sent out and we are going to try to lower his blood pressure gradually and he will be on DVT prophylaxis. Job ID: [id number]
[2018-11-04] MEDS: Tamsulosin HCl 0.4 MG CAP PO SCH (20:05)
[2018-11-05 05:10] LABS: PTT 29.8 SEC (22.9-36.1); Prothrombin Time 13.3 SEC (12.0-14.7)
[2018-11-05] MEDS ORDERED: Midazolam HCl 2 mg/2 ml Vial ONE (07:39)
[2018-11-05] MEDS ORDERED: Sodium Bicarbonate 2.5 MEQ/5 ML VIAL ONE (07:39)
[2018-11-05] MEDS ORDERED: Fentanyl 100 MCG/2 ML VIAL ONE (07:39)
--- NOTE | 2018-11-05 09:29 | CT ---
CT-guided random renal biopsy HISTORY: Proteinuria. Chronic renal disease. FINDINGS: After explaining the procedure and answering all questions, limited CT imaging of the abdom en was performed with the patient prone. Sterile technique, buffered local anesthesia, CT guidance, and a left posterior approach were used to carefully advance a 17-gauge trocar needle into the inferi or/lateral posterior cortex of the left kidney at the avascular zone. Position was confirmed with CT. A total of 2 18-gauge core specimens were obtained and submitted to pathology for confirmation. Needl e was removed. No evidence of complication. Patient tolerated the procedure well and was returned in unchanged condition. IMPRESSION: Technically successful CT-guided random renal biopsy. Pathology is pending.
[2018-11-05 09:58] LABS: Anion Gap 12 mmol/L (10-20); BUN (Urea Nitrogen) 61 mg/dL (8.4-25.7); Calc. Creatinine Clearance 21 mL/min (70-130); Carbon Dioxide 23 mmol/L (22-29); Chloride 108 mmol/L (98-107); Estimated GFR-MDRD 12; Glucose 104 mg/dL (70-105); Potassium 5.3 mmol/L (3.5-5.1); Sodium 138 mmol/L (136-145)
[2018-11-05] MEDS: Finasteride 5 MG TAB PO SCH (09:59)
[2018-11-05] MEDS: Carvedilol 6.25 MG TAB PO SCH ×2 (09:59→21:18)
[2018-11-05] MEDS: Amlodipine 10 MG TAB PO SCH (09:59)
[2018-11-05] MEDS: Heparin 5,000 UNITS/ML VIAL SC SCH ×3 (10:00→21:18)
--- NOTE | 2018-11-05 14:38 | PRG ---
DATE OF SERVICE: 11/05/2018 SUBJECTIVE: Patient was seen and examined at bedside and overnight events noted. Patient denies any shortness of breath or chest pain or palpitation. No history of nausea or vomiting or diarrhea or fever or chills or cramps. OBJECTIVE: GENERAL: This is a well-built male, in no apparent distress. VITAL SIGNS: Temperature 97.9. Heart rate 71. Respiratory rate 18. Blood pressure 132/81. HEENT: Atraumatic, normocephalic. Oral mucosa is moist NECK: Supple. CARDIOVASCULAR: S1, S2 heard. Rate and rhythm regular. RESPIRATORY: Clear to auscultation. GASTROINTESTINAL: Abdomen is soft. MUSCULOSKELETAL: No tenderness. No edema. DERMATOLOGIC: No skin rash. NEUROLOGIC: Alert and awake and oriented X3. No focal neurologic deficits. Moving all the extremities. PSYCHIATRIC: Mood and affect normal. LABORATORY DATA: Potassium 5.3, BUN is 61, and creatinine is 4.8. ASSESSMENT AND PLAN: 1. Chronic kidney disease, stage 5. Renal function is stable. 2. Mild hyperkalemia. 3. Azotemia. 4. Proteinuria, status post biopsy today. Results should be back in the next few days . 5. Hypertension. 6. Edema, controlled. Waiting for biopsy results and immunological workup. We will restart on IV fluids today to monitor and we will follow. Job ID: [id number]
--- NOTE | 2018-11-05 14:40 | PRG ---
DATE OF SERVICE: 11/05/2018 SUBJECTIVE: The patient is seen and examined at bedside. He does not have much complaints to offer. His headache is gone. His appetite is fair. OBJECTIVE: VITAL SIGNS: Blood pressure is 132/81, pulse is 70, respirations 18, O2 saturation is 97% on room air, his temperature is 97.9. HEENT: His head is atraumatic and normocephalic. Eyes are PERRLA. Sclerae are nonicteric. Oral mucosa is moist. NECK: Supple. LUNGS: Clear. HEART: S1 and S2 normal. No S3. No S4. ABDOMEN: Soft, nontender. Bowel sounds are present. EXTREMITIES: There is 1+ peripheral edema similar bilaterally. NEUROLOGICAL: He is alert and oriented x4. There are no any motor or sensory deficits present. Cranial nerves are intact. LABORATORY DATA: Sodium of 138, potassium 5.3, chloride 108, CO2 of 23, BUN 61, creatinine 4.89, glucose 104, calcium 9.0. INR 1.0, PT of 13.3, PTT 29.8. DIAGNOSTIC DATA: Echocardiogram showed ejection fraction visually estimated at 60% to 65%, grade 1 diastolic dysfunction, mild concentric left ventricular hypertrophy, mildly dilated left atrium, mild mitral regurgitation, and mild tricuspid regurgitation. IMPRESSION: 1. [id number] renal failure. The patient had biopsy done. He tolerated the procedure fine. There is no hematuria. His creatinine is still around 4.8, not change much since yesterday. 2. Hypertensive emergency, improved on corrected amlodipine regimen. 3. Normocytic anemia secondary to chronic renal failure. 4. Hyperlipidemia. 5. Anxiety. 6. Depression. 7. Vitamin D deficiency, currently on supplement. 8. Prostate hypertrophy, started on finasteride and Flomax. 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 Job ID: [id number]
[2018-11-05] MEDS: Sodium Chloride 0.9% 1,000 ML IV SCH (14:58)
[2018-11-05 15:10] LABS: Kappa Lambda Light Chain Ratio 1.24 (0.26-1.65); Kappa Light Chains 98.2 mg/L (3.3-19.4); Lambda Light Chain 78.9 mg/L (5.7-26.3)
[2018-11-05 17:09] LABS: Cytoplasmic (C-ANCA) <1:20 titer (Neg:<1:20); Myeloperoxidase AutoAbs <9.0 U/mL (0.0-9.0); Perinuclear (P-ANCA) <1:20 titer (Neg:<1:20); Proteinase-3 AutoAbs Less than 3.5 U/mL (0.0-3.5)
[2018-11-05 17:32] LABS: EliA Vaculitis New Method **** NEW METHOD ****; Glomerular Basemt Membrane Ab Less than 1.9 EliAU/mL (<7 Negative)
[2018-11-05] MEDS: Tamsulosin HCl 0.4 MG CAP PO SCH (21:18)
[2018-11-06 06:54] LABS: Anion Gap 12 mmol/L (10-20); BUN (Urea Nitrogen) 65 mg/dL (8.4-25.7); Calc. Creatinine Clearance 20 mL/min (70-130); Calcium 8.9 mg/dL (7.8-10.44); Carbon Dioxide 21 mmol/L (22-29); Chloride 112 mmol/L (98-107); Estimated GFR-MDRD 12; Glucose 103 mg/dL (70-105); Potassium 5.4 mmol/L (3.5-5.1); Sodium 140 mmol/L (136-145)
[2018-11-06] MEDS: Amlodipine 10 MG TAB PO SCH (09:04)
[2018-11-06] MEDS: Heparin 5,000 UNITS/ML VIAL SC SCH ×3 (09:05→21:39)
[2018-11-06] MEDS: Carvedilol 6.25 MG TAB PO SCH ×2 (09:05→21:39)
[2018-11-06] MEDS: Finasteride 5 MG TAB PO SCH (09:05)
[2018-11-06] MEDS ORDERED: Heparin 1,000 UNITS/ML VIAL ONE (11:11)
[2018-11-06] MEDS: Sodium Chloride 0.9% 1,000 ML IV SCH (11:14)
--- NOTE | 2018-11-06 12:14 | EKG ---
Test Reason : Blood Pressure : / mmHG Vent. Rate : 072 BPM Atrial Rate : 072 BPM P-R Int : 150 ms QRS Dur : 086 ms QT Int : 390 ms P-R-T Axes : 043 013 032 degrees QTc Int : 427 ms Normal sinus rhythm Normal ECG Confirmed by KARL BRADFORD ([id number]), news video editor HEATHER CINTRON ([id number]) on 11/06/2018 12:14:10 PM Referred By: Confirmed By:KARL BRADFORD
[2018-11-06 14:09] LABS: HBSAB Concentration 2.03 mIU/mL; HBSAg Index 0.24 S/CO (0-0.99); Hep B Core Total Ab Non-Reactive (NonReactive); Hep B Core Total Index 0.05 S/CO (0-0.79); Hep B Surf AB Non-Reactive (NonReactive); Hep B Surf Ag Non-Reactive S/CO (NonReactive); Hep C IgG Ab Non-Reactive (NonReactive); Hep C Index 0.06 S/CO (0-0.79)
--- NOTE | 2018-11-06 14:58 | PRG ---
DATE OF SERVICE: 11/06/2018 SUBJECTIVE: The patient is seen and examined at the bedside. He does not have much complaints to offer and he does not have any headache anymore. His appetite is fair. He is able to ambulate in the hallway. OBJECTIVE: VITAL SIGNS: Blood pressure is 133/77, pulse is 66, temperature is 98.0, respirations 16, O2 saturation is 96% on room air. HEENT: Head is atraumatic and normocephalic. Eyes are PERRLA. Sclerae are nonicteric. Oral mucosa is moist. NECK: Supple. LUNGS: Clear. HEART: S1 and S2 normal. No S3. No S4. ABDOMEN: Soft, nontender, mildly distended. No guarding. EXTREMITIES: 1+ peripheral edema similar bilaterally on lower extremities. NEUROLOGICAL: He follows my commands. He moves his all 4 extremities. There is no any motor or sensory deficits. LABORATORY DATA: Labs showed sodium of 140, potassium 5.4, chloride 112, CO2 of 21, BUN 65, creatinine 5.24, glucose 103. Anti-proteinase 3 less than 3.5, atypical p-ANCA less than 1 to 20, anti-myeloperoxidase less than 9.0 ANCA pattern is less than 1 to 20. Glomerular basal membrane antibodies less than 1.9. Free kappa light chain 98.2 and free lambda light chain 78.5, both of them high, but ratio of free kappa to free lambda is 1.24. Microbiology, none. IMPRESSION: 1. Acute on chronic renal failure status post renal biopsy, awaiting for the report. His creatinine is climbing up, today it is more than 5. Commodities Requirements Analyst decided to start hemodialysis on him, so he will have catheter placed and he was started on dialysis. 2. Hypertensive emergency, improved on amlodipine and Coreg. 3. Normocytic anemia secondary to chronic renal failure. 4. Hyperlipidemia. 5. Anxiety. 6. Depression. 7. Vitamin D deficiency, currently on supplement. 8. Prostate hypertrophy, started on finasteride and Flomax. PLAN: Plan is to do the dialysis today and we are awaiting for the rest of the diagnostic workup. Job ID: [id number]
[2018-11-06] MEDS ORDERED: Heparin 10,000 UNITS/ 10 ML VIAL CATH PRN (20:45)
[2018-11-06] MEDS: Tamsulosin HCl 0.4 MG CAP PO SCH (21:39)
--- NOTE | 2018-11-06 22:30 | PDOC.OP ---
Operative Note - Operative Note Operative Note: After informed consent was obtained the patient was prepped and draped in standard sterile fashion and placed in supine position. A sterile ultrasound probe was used to identify the patent femoral vein and local anesthesia was infused the skin and subcutaneous tissues overlying this. The vein was accessed under direct ultrasound guidance and a wire threaded through the needle. The needle was removed leaving the wire in place which was confirmed by ultrasound to be within the patent compressible vein. The skin was incised and the tract was dilated. A hemodialysis catheter was placed over the wire and secured to the skin with suture. A Biopatch and Tegaderm dressing was placed. All ports easily aspirated dark venous nonpulsatile blood and easily flushed without resistance. There were no immediate complications. Estimated blood loss is minimal. There were no specimens. The inpatient dialysis nurse was alerted that the patient had dialysis access in place.
--- NOTE | 2018-11-07 08:00 | CON ---
DATE OF CONSULTATION: 11/06/2018 REASON FOR CONSULT: Need for dialysis access. HISTORY OF PRESENT ILLNESS: Mr. Swan is a 53-year-old man, who presented to the hospital with a hypertensive crisis. His blood pressure was currently 250/100 when he arrived. He has a history of hypertension, hyperlipidemia, and chronic renal insufficiency, but was in acute renal failure on arrival as well and this has worsened through his hospital stay. His nephrologists have decided to institute dialysis. Currently, his blood pressure is under better control. PAST MEDICAL HISTORY: Hypertension, hyperlipidemia, and chronic renal insufficiency. No history of diabetes. Denies heart attack or stroke. PAST SURGICAL HISTORY: None. OUTPATIENT MEDICATIONS: Include amlodipine, carvedilol. ALLERGIES: HE HAS NO KNOWN DRUG ALLERGIES. SOCIAL HISTORY: Does not smoke, drink, or use illicit drugs. FAMILY HISTORY: Hypertension. REVIEW OF SYSTEMS: Ten-system review of systems is negative, except per HPI. When first arrived was feeling ill and had some blurred vision, but this has resolved. PHYSICAL EXAMINATION: VITAL SIGNS: The patient has been afebrile through his hospital stay. Heart rate mostly in the 70s, blood pressure 140s to 160s systolic over 70s diastolic. Respirations on room air. Saturations are normal. GENERAL: Reveals a healthy-appearing man, in no acute distress. HEENT: Unremarkable. NECK: Supple without lymphadenopathy or thyroid nodules. HEART: Regular in its rate and rhythm without murmurs, rubs, or gallops. LUNGS: Clear to auscultation bilaterally. ABDOMEN: Soft, nontender, and nondistended without palpable masses or hernias. EXTREMITIES: Warm and well perfused. NEURO: No focal deficits. PSYCHIATRIC: Alert, oriented, and appropriate. The patient has normal radial and ulnar pulses. He does have palpable forearm cephalic and antecubital vein and normal filling from each artery on an Murtaza testing bilaterally. LABORATORY DATA: White count is normal, hematocrit 36, platelets 238. Coags are normal. Potassium is slightly high. BUN and creatinine 65 and 5.24. PTH is high at 382. IMAGING STUDIES: Renal ultrasound consistent with chronic medical disease and he was also noted to have prostatic hypertrophy. Echocardiogram showed ejection fraction of 60% to 65% with grade 1 of 3 diastolic dysfunction and mild concentric left ventricular hypertrophy. ASSESSMENT: Acute on chronic renal failure with need for dialysis. His director child abuse therapy has requested a temporary femoral dialysis catheter for this. If his renal function does not improve, he will require a tunneled dialysis catheter at a later date. He has not yet seen the dialysis nurse to discuss options of hemodialysis versus peritoneal dialysis and we did go over the differences between the 2 modalities briefly. I encouraged him to speak with the hemodialysis nurse's office further. Depending on which modality he chooses, he will require either an AV fistula and/or a peritoneal dialysis catheter. I have ordered vein mapping and asked that his antecubital IV on the left arm be removed, hence you will have access via his femoral Trialysis catheter. I have also asked that his lab draws to be done by his nurse through the Trialysis catheter again to preserve his veins for dialysis access. The procedure of femoral dialysis catheter placement was discussed with the patient and his , and they want to proceed. Inherent risks including bleeding, infection, and blood clots were also discussed and they understands and accepts these risks. The procedure was done as dictated under separate cover, and he tolerated this well. I will follow up with him later this week to see if he requires ongoing dialysis access. Job ID: [id number]
[2018-11-07] MEDS: Finasteride 5 MG TAB PO SCH (09:43)
[2018-11-07] MEDS: Carvedilol 6.25 MG TAB PO SCH ×2 (09:43→20:11)
[2018-11-07] MEDS: Amlodipine 10 MG TAB PO SCH (09:44)
[2018-11-07] MEDS: Heparin 5,000 UNITS/ML VIAL SC SCH ×3 (09:44→20:11)
--- NOTE | 2018-11-07 10:09 | ULT ---
Exam: Vein mapping for dialysis access HISTORY: End-stage renal disease. TECHNIQUE: Multiplanar grayscale and color Doppler images were obtained in a bilateral upper extremit y venous ultrasound. Spectral analysis of the Doppler waveforms of the vessels were performed. FINDINGS: The bilateral internal jugular veins and subclavian veins are patent without evidence of th rombus. Right brachial artery 6.4 mm Right radial artery 2.7 mm Right ulnar artery 2.8 mm Left brachial artery 5.4 mm Left radial artery 2.7 mm Left ulnar artery 3.1 mm RIGHT CEPHALIC VEIN in millimeters 5.0 -- Shoulder 3.8 -- Upper arm 4.1 -- Mid upper arm 7.1-- Just proximal to the elbow 3.1 -- Just distal to the elbow 3.1 -- Forearm 2.4 -- Wrist RIGHT BASILIC VEIN not visualized LEFT CEPHALIC VEIN in millimeters 3.7 -- Shoulder 3.6 -- Upper arm 3.4 -- Mid upper arm 4.2 -- Just proximal to the elbow 3.2 -- Just distal to the elbow 3.0 -- Forearm 3.4 -- Wrist LEFT BASILIC VEIN in millimeters 6.1 -- Shoulder 4.5 -- Upper arm 5.0 -- Mid upper arm 4.4 -- Just proximal to the elbow 1.7 -- Just distal to the elbow 1.8 -- Forearm 1.5 -- Wrist IMPRESSION: Vein mapping for dialysis access as above
[2018-11-07 10:23] LABS: Anion Gap 10 mmol/L (10-20); BUN (Urea Nitrogen) 56 mg/dL (8.4-25.7); Calc. Creatinine Clearance 20 mL/min (70-130); Calcium 8.8 mg/dL (7.8-10.44); Carbon Dioxide 26 mmol/L (22-29); Chloride 105 mmol/L (98-107); Estimated GFR-MDRD 13; Glucose 106 mg/dL (70-105); Potassium 4.3 mmol/L (3.5-5.1); Sodium 137 mmol/L (136-145)
--- NOTE | 2018-11-07 14:28 | PRG ---
DATE OF SERVICE: 11/07/2018 SUBJECTIVE: The patient is seen and examined at bedside. He does not have much complaints to offer. His appetite is fair. OBJECTIVE: VITAL SIGNS: Blood pressure is 120/76, pulse is 64, temperature is 98.2, respirations 18, and O2 saturation is 98% on room air. HEENT: His head is atraumatic and normocephalic. Eyes are PERRLA. Sclerae are nonicteric. Oral mucosa is moist. NECK: Supple. LUNGS: Clear breath sounds, slightly diminished at both bases. HEART: S1, S2 normal. No S3. No S4. ABDOMEN: Soft, nontender. EXTREMITIES: No clubbing, cyanosis, or edema. NEUROLOGICAL: He is alert and oriented x4. There is no any motor or sensory deficits. LABORATORY DATA: Lab showed normal electrolytes, BUN of 56, creatinine 4.74, and glucose of 106. Hepatitis panel came back within normal limits. So far, workup for his acute renal failure on chronic renal failure is negative. We are waiting for renal biopsy results. He had a catheter placed in his right groin and he had hemodialysis done yesterday. He will continue on hemodialysis per a hand spring repairer helper's recommendation. Job ID: [id number]
--- NOTE | 2018-11-07 14:33 | PRG ---
DATE OF SERVICE: 11/07/2018 SUBJECTIVE: Patient was seen and examined at bedside and overnight events noted. Patient denies any shortness of breath or chest pain or palpitation. No history of nausea or vomiting or diarrhea or fever or chills or cramps. OBJECTIVE: GENERAL: This is a well-built male, in no apparent distress. VITAL SIGNS: Temperature 98.2. Heart rate . Respiratory rate 18. Blood pressure . HEENT: Atraumatic, normocephalic. Oral mucosa is moist NECK: Supple. CARDIOVASCULAR: S1, S2 heard. Rate and rhythm regular. RESPIRATORY: Clear to auscultation. GASTROINTESTINAL: Abdomen is soft. MUSCULOSKELETAL: No tenderness. No edema. DERMATOLOGIC: No skin rash. NEUROLOGIC: Alert and awake and oriented X3. No focal neurologic deficits. Moving all the extremities. PSYCHIATRIC: Mood and affect normal. LABORATORY DATA: Potassium is 4.3, BUN is 56, and creatinine is 4.7. ASSESSMENT AND PLAN: 1. End-stage renal disease. Plan is to continue on dialysis. 2. Hyperkalemia. 3. Azotemia. 4. Proteinuria, status post biopsy results. 5. Hypertension. 6. Edema, controlled. Awaiting biopsy results. We will continue on dialysis as tolerated. No dialysis today. Job ID: [id number]
[2018-11-07] MEDS: Acetaminophen 325 MG TAB PO PRN (20:10)
[2018-11-07] MEDS: Tamsulosin HCl 0.4 MG CAP PO SCH (20:11)
[2018-11-08] MEDS: Acetaminophen 325 MG TAB PO PRN ×2 (03:36→20:24)
[2018-11-08 06:29] LABS: Anion Gap 13 mmol/L (10-20); BUN (Urea Nitrogen) 68 mg/dL (8.4-25.7); Calc. Creatinine Clearance 18 mL/min (70-130); Calcium 9.2 mg/dL (7.8-10.44); Carbon Dioxide 22 mmol/L (22-29); Chloride 108 mmol/L (98-107); Estimated GFR-MDRD 11; Glucose 104 mg/dL (70-105); Potassium 5.1 mmol/L (3.5-5.1); Sodium 138 mmol/L (136-145)
[2018-11-08] MEDS: Amlodipine 10 MG TAB PO SCH (09:01)
[2018-11-08] MEDS: Heparin 5,000 UNITS/ML VIAL SC SCH ×3 (09:02→20:21)
[2018-11-08] MEDS: Carvedilol 6.25 MG TAB PO SCH ×2 (09:02→20:24)
[2018-11-08] MEDS: Finasteride 5 MG TAB PO SCH (09:02)
--- NOTE | 2018-11-08 12:10 | PRG ---
DATE OF SERVICE: 11/08/2018 SUBJECTIVE: This is a 53-year-old gentleman being seen for end-stage renal disease. The patient denied any nausea, vomiting, or chest pain. OBJECTIVE: CONSTITUTIONAL: On examination, the patient is awake and alert. VITAL SIGNS: Afebrile, pulse 61, breathing 16, and blood pressure 127/73. GENERAL APPEARANCE AND MENTAL STATUS: Fair. HEAD/NECK: Normocephalic. Atraumatic. EYES: EOMI. No deformity. EARS: Clear. No ulcers. NOSE: Intact. No lesions. MOUTH: Clear. No discharge. THROAT: Clear. No exudate. LUNGS: Clear. No crackles. CARDIAC: S1, S2. No rub. ABDOMEN: Benign. Bowel sounds positive. GENITALIA/RECTUM: Lai absent. BACK/EXTREMITIES: Edema 0+. NEUROLOGICAL: Alert and motor intact. SKIN: LYMPHATICS: LABORATORY DATA: Reviewed. ASSESSMENT AND PLAN: 1. Stage 3 chronic kidney disease, stable. 2. Hypertension, stable. 3. Anemia, stable. 4. Medication based on glomerular filtration rate are appropriate. Job ID: [id number]
--- NOTE | 2018-11-08 14:28 | PRG ---
DATE OF SERVICE: 11/08/2018 SUBJECTIVE: The patient was seen and examined at the bedside. He is doing well. He is able to eat. He tolerates his dialysis fine without any problems. OBJECTIVE: VITAL SIGNS: Blood pressure is 151/70, pulse is 70, temperature is 97.7, respirations 18, and O2 saturation is 98% on room air. HEENT: His head is otherwise normocephalic. Eyes are PERRLA. Sclerae are nonicteric. Oral mucosa is moist. NECK: Supple. LUNGS: Clear. HEART: S1, S2 normal. ABDOMEN: Soft, nontender. EXTREMITIES: No clubbing, cyanosis, or edema. NEUROLOGIC: Intact. LABORATORY DATA: Labs showed sodium of 138, potassium 5.1, chloride 108, CO2 of 22, BUN 68, creatinine 5.26, calcium 9.2, and glucose 104. IMPRESSION: 1. Acute on chronic renal failure. Diagnostic workup is still in progress. He will continue his dialysis per Nephrology recommendation. 2. Hypertensive emergency, improved with amlodipine and Coreg. 3. Normocytic anemia, secondary to chronic renal failure. 4. Hyperlipidemia. 5. Anxiety. 6. Depression. 7. Vitamin D deficiency, placed on supplementation. 8. Prostate hypertrophy, started on finasteride and Flomax. Job ID: [id number]
[2018-11-08] MEDS: Tamsulosin HCl 0.4 MG CAP PO SCH (20:21)
[2018-11-09 06:27] LABS: Anion Gap 13 mmol/L (10-20); BUN (Urea Nitrogen) 45 mg/dL (8.4-25.7); Calc. Creatinine Clearance 21 mL/min (70-130); Calcium 8.9 mg/dL (7.8-10.44); Carbon Dioxide 26 mmol/L (22-29); Chloride 102 mmol/L (98-107); Estimated GFR-MDRD 13; Glucose 99 mg/dL (70-105); Potassium 4.5 mmol/L (3.5-5.1); Sodium 136 mmol/L (136-145)
[2018-11-09] MEDS: Finasteride 5 MG TAB PO SCH (08:13)
[2018-11-09] MEDS: Heparin 5,000 UNITS/ML VIAL SC SCH ×3 (08:16→21:57)
[2018-11-09] MEDS: Carvedilol 6.25 MG TAB PO SCH ×2 (08:17→21:56)
[2018-11-09] MEDS: Amlodipine 10 MG TAB PO SCH (08:17)
[2018-11-09] MEDS ORDERED: Ondansetron PF 4 MG/2 ML Vial ONE (09:48)
[2018-11-09] MEDS ORDERED: Rocuronium Bromide 10 MG/ML (10ML VIAL) ONE (09:48)
[2018-11-09] MEDS ORDERED: PROPOFOL 200 MG/20 ML VIAL ONE (09:48)
[2018-11-09] MEDS ORDERED: Heparin 10,000 UNITS/ 10 ML VIAL ONE (09:48)
[2018-11-09] MEDS ORDERED: Glycopyrrolate 0.2 MG/ML 5 ML SYRINGE ONE (09:48)
[2018-11-09] MEDS ORDERED: Lidocaine 1% PF 5 ML VIAL ONE (09:48)
[2018-11-09] MEDS ORDERED: Dexamethasone 20 MG/5 ML VIAL ONE (09:48)
[2018-11-09] MEDS ORDERED: ePHEDrine 50 MG/ML VIAL ONE (09:48)
[2018-11-09] MEDS ORDERED: Midazolam HCl 2 mg/2 ml Vial ONE (13:04)
[2018-11-09] MEDS ORDERED: Fentanyl 100 MCG/2 ML VIAL ONE ×2 (13:04→15:38)
[2018-11-09] MEDS ORDERED: Heparin 5,000 UNITS/ML VIAL ONE (13:14)
[2018-11-09] MEDS ORDERED: Protamine Sulfate 50 MG/5 ML VIAL ONE (13:14)
[2018-11-09] MEDS ORDERED: Bupivacaine/Epinephrine 0.25% 30 ML VIAL ONE ×2 (13:14→15:29)
[2018-11-09] MEDS ORDERED: Heparin 10,000 UNITS/1 ML VIAL ONE (13:14)
[2018-11-09] MEDS ORDERED: Sodium Chloride 0.9% 30 ML ONE (13:15)
[2018-11-09] MEDS ORDERED: Ioversol 68 % 50 ML VIAL ONE (13:15)
[2018-11-09] MEDS ORDERED: Lidocaine 2% PF 5 ML VIAL ONE ×2 (13:15→15:29)
[2018-11-09] MEDS ORDERED: Propofol 500 MG/50 ML VIAL ONE (13:21)
[2018-11-09] MEDS ORDERED: Propofol 1,000 MG/100 ML VIAL IV ONE (13:22)
--- NOTE | 2018-11-09 13:28 | PRG ---
DATE OF SERVICE: 11/09/2018 SUBJECTIVE: A 53-year-old gentleman being seen for end-stage kidney disease. The patient denied nausea or chest pain. OBJECTIVE: CONSTITUTIONAL: On examination, the patient is awake and alert. VITAL SIGNS: Afebrile, pulse 60, breathing 16, blood pressure 119/74. GENERAL APPEARANCE AND MENTAL STATUS: Fair. HEAD/NECK: Normocephalic. Atraumatic. EYES: EOMI. No deformity. EARS: Clear. No ulcers. NOSE: Intact. No lesions. MOUTH: Clear. No discharge. THROAT: Clear. No exudate. LUNGS: Clear. No crackles. CARDIAC: S1, S2. No rub. ABDOMEN: Benign. Bowel sounds positive. GENITALIA/RECTUM: Lai absent. BACK/EXTREMITIES: Edema 0+. NEUROLOGICAL: Alert and motor intact. SKIN: LYMPHATICS: LABORATORY DATA: Reviewed. ASSESSMENT AND PLAN: 1. Stage 6 chronic kidney disease. Plan dialysis. 2. Hypertension, stable. 3. Anemia, stable. The patient wants PD, so we will put a PD catheter placement. Job ID: [id number]
--- NOTE | 2018-11-09 15:13 | PRG ---
DATE OF SERVICE: 11/09/2018 SUBJECTIVE: The patient is seen and examined at the bedside. He is doing well. He does not have much complaints to offer. He is getting his hemodialysis per Nephrology recommendation. OBJECTIVE: VITAL SIGNS: Blood pressure is 119/74, pulse is 66, temperature is 98.0, respiratory rate is 18, and O2 saturation is 95% on room air. HEENT: his head is atraumatic and normocephalic. Eyes are PERRLA. Sclerae are nonicteric. Oral mucosa is moist. NECK: Supple. LUNGS: Clear. HEART: S1, S2 normal. No S3. No S4. No any murmur. ABDOMEN: Soft, nontender. Bowel sounds are present. No organomegaly. EXTREMITIES: No clubbing, cyanosis, or edema. NEUROLOGICAL: He is alert and oriented x4. There are no any motor or sensory deficits present. LABORATORY DATA: Showed normal electrolytes, BUN of 45, creatinine 4.65, glucose 99, and calcium 8.9. Kidney biopsy results are still pending. IMPRESSION: 1. Acute on chronic renal failure. Diagnostic workup in progress. We will continue dialysis per Nephrology recommendation. 2. Hypertensive emergency, improved with amlodipine and Coreg. 3. Normocytic anemia secondary to chronic renal failure. 4. Hyperlipidemia. 5. Anxiety. 6. Depression. 7. Vitamin D deficiency, placed on supplementation. 8. Prostate hypertrophy, started on finasteride and Flomax during this admission. We are awaiting for the final report on his kidney biopsy. In the meantime, prepress supervisor will continue dialysis as needed. Job ID: [id number]
[2018-11-09 16:09] LABS: Renin Activity 0.368 ng/mL/hr (0.167-5.380)
[2018-11-09 17:09] LABS: Metanephrine,Plasma <10 pg/mL (0-62); Normetanephrine,Pl 31 pg/mL (0-145)
[2018-11-09] MEDS ORDERED: Ondansetron HCl/PF 4 MG/2 ML Vial IVP PRN (17:19)
[2018-11-09] MEDS ORDERED: Promethazine HCl 25 MG/ML VIAL SLOW IVP PRN (17:19)
[2018-11-09] MEDS ORDERED: Promethazine HCl 25 MG/ML VIAL IM PRN (17:19)
--- NOTE | 2018-11-09 17:51 | RAD ---
EXAM: XR Chest 1 View Portable PROVIDED CLINICAL HISTORY: Hemodialysis catheter placement COMPARISON: 09/22/2017 FINDINGS: Cardiac silhouette remains enlarged. Poor visualization of the left lung base with nonvisualization o f the left hemidiaphragm. Visualized lung parenchyma appears free of significant opacity. No evidence for large effusion or pneumothorax. Interval placement of right IJ dialysis catheter, tips o f which overlie expected location of SVC. IMPRESSION: Cardiomegaly and suboptimal visualization of the left lung base.
[2018-11-09] MEDS: Tamsulosin HCl 0.4 MG CAP PO SCH (21:58)
[2018-11-09] MEDS ORDERED: Labetalol HCl 100 MG/20 ML VIAL SLOW IVP PRN (23:10)
[2018-11-10] MEDS: Acetaminophen 325 MG TAB PO PRN ×2 (03:16→20:05)
--- NOTE | 2018-11-10 08:23 | OP ---
DATE OF PROCEDURE: PROCEDURE PERFORMED: Ultrasound and fluoroscopic assisted right internal jugular tunneled hemodialysis catheter placement, laparoscopic peritoneal dialysis catheter placement and left Rosalie arteriovenous fistula creation. PREOPERATIVE DIAGNOSIS: Renal failure. POSTOPERATIVE DIAGNOSIS: Renal failure. HISTORY: Mr. Swan is a 53-year-old man with chronic renal failure, which recently worsened after hypertensive crisis. 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 PROCEDURE IN DETAIL: DATE OF PROCEDURE: PROCEDURE: Placement of tunneled hemodialysis catheter. PREOPERATIVE DIAGNOSIS: Acute/Chronic renal failure. POSTOPERATIVE DIAGNOSIS: Acute/Chronic renal failure. HISTORY: A tunneled hemodialysis catheter for ongoing dialysis has been requested by the patients hand coke drawer. PROCEDURE: After informed consent was obtained and appropriate preoperative antibiotics were administered, the patient was taken to the Operating Room, placed in the supine position and general endotracheal anesthesia was administered. The neck and chest were prepped and draped in a standard sterile fashion and the patient placed in Trendelenburg position. A sterile ultrasound probe was used to identify the patent compressible right IJ vein which was accessed under direct ultrasound guidance. A wire was threaded through the needle and confirmed by ultrasound to be within the patent compressible vessel with the tip in the vena cava by fluoroscopy. Local anesthesia was infused to the skin and subcutaneous tissues of the right neck and chest. An infraclavicular incision was made and a catheter tunneled from the infraclavicular to the right IJ access site. The right IJ was sequentially dilated over the wire following which a dilator and sheath were placed over the wire and the dilator and wire removed leaving the sheath in place. The catheter was tunneled through the sheath which was then split and removed leaving the catheter in place. This was confirmed by fluoroscopy to be in good position in the superior vena cava with no kinking of the course of the catheter. Both ports easily aspirated dark venous nonpulsatile blood and easily flushed without resistance. Heparin was instilled to the quantity specified on the hub , and the hub was secured to the skin with 3-0 nylon sutures. The skin incision at the neck was closed in two layers with 4-0 Monocryl suture and Dermabond dressings were placed. The skin at the exit site was snugged up around the catheter with 4-0 Monocryl suture and Dermabond was placed there as well. Once the Dermabond was dry, a Biopatch and Tegaderm dressing was placed at the exit site. Attention was then turned to the laparoscopic peritoneal dialysis catheter placement. The abdomen was sterilely prepped and draped and local anesthesia infused at the level of the umbilicus. A transverse skin incision was made and the fascia was elevated. A Veress needle was placed into the abdominal cavity without difficulty and carbon dioxide gas insufflated to an intra-abdominal pressure 15 which the patient tolerated well. There is needle was withdrawn and a [place] port advanced under direct laparoscopic vision into the abdominal cavity which was carefully examined. There was no evidence of Veress needle or trocar injury. There were no significant adhesions. A 5 mm trocar was placed in the right upper abdomen and the patient was placed in Trendelenburg. The small bowel was easily drawn up out of the pelvis and no adhesions seen in this area. The bottom of the posterior rectus sheath was identified. Local anesthesia was infused to the skin and subcutaneous tissues overlying and lateral to this area. A skin incision was made and an 8 mm trocar tunneled superiorly medially and then inferiorly through the rectus sheath entering the abdominal cavity just above the inferior edge of the rectus sheath. The peritoneal dialysis catheter was placed through the trocar and held in place positioning the inner cuff within the rectus muscle. The trocar was withdrawn and the end of the peritoneal dialysis catheter placed into the pelvis. Saline was infused and drained easily out of the peritoneal cavity through the cuffed tunneled dialysis catheter. The camera was moved to the upper abdominal trocar site and the umbilical trocar removed. The fascia was bridged with a 0 Vicryl suture on a GraNee needle and the sutures secured not tied down. The trocar was replaced through the same defect and the camera moved back to the umbilical location. The upper abdominal trocar was removed and a 0 Vicryl suture on a GraNee needle used to close the fascial defect. Carbon dioxide gas was allowed to desufflate through the umbilical trocar which was then removed and the fascia closed with the pre-existing suture. The second cuff of the peritoneal dialysis catheter was positioned within the subcutaneous tissues and the skin incision at the exit site closed in 2 layers with 4-0 Monocryl suture. The other skin incisions were closed with subcuticular 4-0 Monocryl suture as well. Dermabond dressings were placed and allowed to dry. Heparin flush was infused through the peritoneal dialysis catheter which was then capped and clamped. Once the Dermabond was dry the PD exit site was dressed with gauze and Tegaderm. Attention was then turned to the left arteriovenous fistula creation. The patient's arm was prepped and draped in standard sterile fashion. The palpable cephalic vein and radial artery were marked on the skin. An incision was made between these 2 structures and dissection carried down to the cephalic vein. This was felt to be of adequate caliber and quality to support an AV fistula. The vein was interrogated with cardiac dilators and easily accepted up to a 4 mm dilator. The vein was flushed with heparinized saline and clamped. The radial artery was identified and dissected free and was felt to be of adequate caliber and quality to support a fistula. This was dissected free. Heparin was administered systemically and allowed to circulate for 3 minutes. After the heparin had circulated for 3 minutes, the radial artery was clamped proximally and distally. An anterior arteriotomy was created with an 11 blade and extended with Mccollum scissors. The vein was spatulated and an end-to-side anastomosis was created with excellent technical result. Prior to tying down the anastomosis, the arterial inflow was released flushing the anastomosis. The anastomosis was then secured and hemostasis was verified. Flow was established first through the fistula following which flow was restored through the artery. The patient had a palpable thrill in the cephalic vein as well as a good Doppler signal to the level of the antecubital fossa. The wound was irrigated and examined for hemostasis was again confirmed to be excellent. The subcutaneous tissues were reapproximated with a running 3-0 Monocryl sutures and the skin was closed with running 4-0 subcuticular Monocryl suture. Dermabond dressings were placed. Prior to leaving the operating room the fistula was again examined by Doppler and a good bruit confirmed. The patient was then extubated and taken to recovery in good condition. Estimated blood loss was minimal. There were no complications. There were no specimens. [facility]ITAL[facility]
[2018-11-10] MEDS: Heparin 5,000 UNITS/ML VIAL SC SCH ×3 (09:23→20:05)
[2018-11-10] MEDS: Finasteride 5 MG TAB PO SCH (09:23)
[2018-11-10] MEDS: Carvedilol 6.25 MG TAB PO SCH ×2 (09:32→20:04)
[2018-11-10] MEDS: Amlodipine 10 MG TAB PO SCH (09:32)
--- NOTE | 2018-11-10 10:52 | PRG ---
DATE OF SERVICE: 11/10/2018 SUBJECTIVE: A 53-year-old gentleman, being seen for end-stage renal disease. The patient denied nausea, vomiting, or chest pain. OBJECTIVE: CONSTITUTIONAL: The patient is awake, alert. GENERAL APPEARANCE AND MENTAL STATUS: Fair. VITAL SIGNS: Pulse 81, breathing 16, blood pressure 169/73. HEAD/NECK: Normocephalic. Atraumatic. EYES: EOMI. No deformity. EARS: Clear. No ulcers. NOSE: Intact. No lesions. MOUTH: Clear. No discharge. THROAT: Clear. No exudate. LUNGS: Clear. No crackles. CARDIAC: S1, S2. No rub. ABDOMEN: Benign. Bowel sounds positive. GENITALIA/RECTUM: Lai absent. BACK/EXTREMITIES: Edema 0+. NEUROLOGICAL: Alert and motor intact. SKIN: LYMPHATICS: LABORATORY DATA: Reviewed. ASSESSMENT AND PLAN: 1. Stage 6 chronic kidney disease. Plan dialysis. 2. Hypertension, stable. 3. Anemia, stable. 4. Medication based on GFR appropriate. Job ID: [id number]
--- NOTE | 2018-11-10 11:41 | RAD ---
CHEST TWO VIEWS: HISTORY: Hemodialysis catheter placement. Evaluate for tuberculosis. COMPARISON: 11/09/2018 FINDINGS: A single view of the chest shows an enlarged but stable cardiomediastinal silhouette. The dialysis c atheter is unchanged in position. There is no evidence of consolidation, mass, or pleural effusion. IMPRESSION: No evidence of acute cardiopulmonary disease. POS: [facility]
--- NOTE | 2018-11-10 18:11 | PDOC.PN ---
- Subjective Encounter Start Date: 11/10/18 (f/u htn) Encounter Start Time: 18:09 Subjective: Pt without complaints currently. He does note chest pressure -: and a change in his chest with elevated blood pressures - Objective Resuscitation Status - Order Detail: 11/03/18 07:41 Resuscitation Status Routine Resuscitation Status: FULL: Full Resuscitation Vital Signs & Weight: Vital Signs (12 hours) Temp Pulse Resp BP BP Pulse Ox 11/10/18 16:00 98.2 F 70 18 120/70 97 11/10/18 09:32 81 169/73 H 11/10/18 08:00 97.9 F 80 14 181/80 H 99 Weight Weight 189 lb 6.033 oz I&O: 11/09/18 11/10/18 11/11/18 06:59 06:59 06:59 Intake Total 1100 360 Output Total 1100 1000 Balance 0 -640 Result Diagrams: 11/04/18 05:02 11/09/18 05:32 Phys Exam - Physical Examination Constitutional: NAD Respiratory: no wheezing, no rales, no rhonchi, clear to auscultation bilateral Cardiovascular: RRR, no significant murmur Gastrointestinal: soft, no distention, positive bowel sounds ttp around the bandaged site Musculoskeletal: no edema Neurological: non-focal, moves all 4 limbs Dx/Plan (1) IgA nephropathy Code(s): N02.8 - RECURRENT AND PERSISTENT HEMATURIA W OTH MORPHOLOGIC CHANGES Status: Acute (2) CKD (chronic kidney disease) Code(s): N18.9 - CHRONIC KIDNEY DISEASE, UNSPECIFIED Status: Chronic Qualifiers: Chronic kidney disease stage: unspecified stage Qualified Code(s): N18.9 - Chronic kidney disease, unspecified (3) HTN (hypertension) Code(s): I10 - ESSENTIAL (PRIMARY) HYPERTENSION Status: Chronic Qualifiers: Hypertension type: essential hypertension Qualified Code(s): I10 - Essential (primary) hypertension (4) Anemia Code(s): D64.9 - ANEMIA, UNSPECIFIED Status: Acute Qualifiers: Anemia type: due to chronic kidney disease (5) Vitamin D deficiency Code(s): E55.9 - VITAMIN D DEFICIENCY, UNSPECIFIED Status: Chronic (6) Hyperparathyroidism Code(s): E21.3 - HYPERPARATHYROIDISM, UNSPECIFIED Status: Chronic - Plan Pt admitted on 03 November for severely elevated bp's and elevatecd creatinine. 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 Pt has been started on hemodialysis - has a cath in right side of chest, a bandaged abdominal cath for periotoneal dialysis, and a graft has been placed. 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
[2018-11-10] MEDS: Tamsulosin HCl 0.4 MG CAP PO SCH (20:05)
[2018-11-10] MEDS: Lisinopril 10 MG TAB PO SCH (20:05)
--- NOTE | 2018-11-11 00:01 | PDOC.GSPN ---
Surgery Progress Note: Subj - Subjective Narrative: Feels okay. Minimal pain from his operation. Incisions are clean and dry. Excellent thrill and left arm fistula. Femoral dialysis catheter has been removed. Blood pressure has still been somewhat elevated but other vital signs are okay. Assessment/plan: Doing well status post laparoscopic PD catheter placement was hemodialysis catheter placement and left AV fistula. He is to follow up with me in the outpatient clinic in 2-3 weeks after discharge. Signing off. Surgery Progress Note: Obj - Vital signs Vital signs: Vital Signs - Most Recent Temp Pulse Resp BP Pulse Ox 97.7 F 78 18 139/82 99 11/10/18 22:18 11/10/18 22:18 11/10/18 22:18 11/10/18 22:18 11/10/18 22:18 Surgery Progress Note: Results - Labs Result Diagrams: 11/04/18 05:02 11/09/18 05:32
[2018-11-11] MEDS: Acetaminophen 325 MG TAB PO PRN ×2 (08:21→20:52)
[2018-11-11] MEDS: Cholecalciferol (Vitamin D3) 400 UNITS TAB PO SCH (08:22)
[2018-11-11] MEDS: Amlodipine 10 MG TAB PO SCH (08:22)
[2018-11-11] MEDS: Heparin 5,000 UNITS/ML VIAL SC SCH ×3 (08:23→20:50)
[2018-11-11] MEDS: Carvedilol 6.25 MG TAB PO SCH ×2 (08:23→20:51)
[2018-11-11] MEDS: Finasteride 5 MG TAB PO SCH (08:23)
--- NOTE | 2018-11-11 13:21 | PDOC.PN ---
- Subjective Encounter Start Date: 11/11/18 Encounter Start Time: 13:18 Subjective: doing well - Objective Resuscitation Status - Order Detail: 11/03/18 07:41 Resuscitation Status Routine Resuscitation Status: FULL: Full Resuscitation MAR Reviewed: Yes Vital Signs & Weight: Vital Signs (12 hours) Temp Pulse Resp BP BP Pulse Ox 11/11/18 11:23 97.6 F 72 18 110/66 99 11/11/18 08:23 127/73 11/11/18 08:22 68 127/73 11/11/18 08:00 99 11/11/18 07:49 97.9 F 69 18 121/75 99 Weight Weight 186 lb 8.177 oz I&O: 11/10/18 11/11/18 11/12/18 06:59 06:59 06:59 Intake Total 360 630 Output Total 1000 500 Balance -640 130 Result Diagrams: 11/04/18 05:02 11/09/18 05:32 Phys Exam - Physical Examination Neck: no JVD Respiratory: clear to auscultation bilateral Cardiovascular: RRR, no significant murmur Gastrointestinal: soft, positive bowel sounds PD cath RLQ Musculoskeletal: no edema Dx/Plan (1) ESRD (end stage renal disease) Code(s): N18.6 - END STAGE RENAL DISEASE Status: Acute (2) IgA nephropathy Code(s): N02.8 - RECURRENT AND PERSISTENT HEMATURIA W OTH MORPHOLOGIC CHANGES Status: Acute (3) Hyperparathyroidism Code(s): E21.3 - HYPERPARATHYROIDISM, UNSPECIFIED Status: Chronic (4) HLD (hyperlipidemia) Code(s): E78.5 - HYPERLIPIDEMIA, UNSPECIFIED Status: Chronic (5) HTN (hypertension) Code(s): I10 - ESSENTIAL (PRIMARY) HYPERTENSION Status: Chronic Qualifiers: Hypertension type: essential hypertension Qualified Code(s): I10 - Essential (primary) hypertension - Plan on HD transitionong to PD -: cont coreg, amlodipine, lisinopril -: add po hydralazine if needed * .
[2018-11-11] MEDS: Tamsulosin HCl 0.4 MG CAP PO SCH (20:52)
[2018-11-11] MEDS: Lisinopril 10 MG TAB PO SCH (20:52)
[2018-11-12 07:53] VITALS: TEMP 98.3
[2018-11-12] MEDS: Cholecalciferol (Vitamin D3) 400 UNITS TAB PO SCH (08:20)
[2018-11-12] MEDS: Amlodipine 10 MG TAB PO SCH (08:21)
[2018-11-12] MEDS: Finasteride 5 MG TAB PO SCH (08:22)
[2018-11-12] MEDS: Heparin 5,000 UNITS/ML VIAL SC SCH (08:22)
[2018-11-12] MEDS: Carvedilol 6.25 MG TAB PO SCH (08:23)
[2018-11-12 08:33] VITALS: BP 127/73
[2018-11-12 10:59] LABS: #Basophils 0.1 thou/uL (0.0-0.2); #Eosinphils 0.2 thou/uL (0.0-0.7); #Lymphocytes 1.6 thou/uL (1.20-3.40); #Monocytes 0.5 thou/uL (0.11-0.59); #Neutrophils 4.2 thou/uL (1.40-6.50); %Basophils 0.9 % (0.0-1.0); %Lymphocytes 24.8 % (21.0-51.0); %Monocytes 7.8 % (0.0-10.0); %Neutrophils 63.5 % (42.0-75.0); Hemoglobin 11.2 g/dL (14.0-18.0); Mean Corpuscular HGB CONC 33.4 g/dL (32.0-36.0); Mean Corpuscular Hemoglobin 31.5 pg (27.0-31.0); Mean Corpuscular Volume 94.5 fL (78.0-98.0); Mean Platelet Volume 7.8 fL (7.4-10.4); Platelet Count 204 thou/uL (130-400); RBC Distribution Width 11.8 % (11.5-14.5); Red Blood Cell (RBC) Count 3.55 mill/uL (4.70-6.10); White Blood Cell (WBC) Count 6.6 thou/uL (4.8-10.8)
--- NOTE | 2018-11-12 10:59 | PRG ---
DATE OF SERVICE: 11/12/2018 SUBJECTIVE: A 53-year-old gentleman being seen for end-stage renal disease. The patient denied nausea, vomiting, or chest pain. OBJECTIVE: CONSTITUTIONAL: The patient is awake and alert. VITAL SIGNS: Pulse 69, breathing 16, and blood pressure 127/73. GENERAL APPEARANCE AND MENTAL STATUS: Fair. HEAD/NECK: Normocephalic. Atraumatic. EYES: EOMI. No deformity. EARS: Clear. No ulcers. NOSE: Intact. No lesions. MOUTH: Clear. No discharge. THROAT: Clear. No exudate. LUNGS: Clear. No crackles. CARDIAC: S1, S2. No rub. ABDOMEN: Benign. Bowel sounds positive. GENITALIA/RECTUM: Lai absent. BACK/EXTREMITIES: Edema 0+. NEUROLOGICAL: Alert and motor intact. SKIN: LYMPHATICS: LABORATORY DATA: Labs reviewed. ASSESSMENT AND PLAN: 1. Stage 6 chronic kidney disease. Continue hemodialysis. 2. Hypertension, stable. 3. Anemia, stable. 4. Medication based on GFR appropriate. Job ID: [id number]
--- NOTE | 2018-11-12 10:59 | PRG ---
DATE OF SERVICE: 11/11/2018 SUBJECTIVE: This is a 53-year-old gentleman, being seen for end-stage renal disease. The patient denied nausea, vomiting, or chest pain. OBJECTIVE: CONSTITUTIONAL: The patient is awake, alert. VITAL SIGNS: Pulse 79, breathing 16, blood pressure 120/70. GENERAL APPEARANCE AND MENTAL STATUS: Fair. HEAD/NECK: Normocephalic. Atraumatic. EYES: EOMI. No deformity. EARS: Clear. No ulcers. NOSE: Intact. No lesions. MOUTH: Clear. No discharge. THROAT: Clear. No exudate. LUNGS: Clear. No crackles. CARDIAC: S1, S2. No rub. ABDOMEN: Benign. Bowel sounds positive. GENITALIA/RECTUM: Lai absent. BACK/EXTREMITIES: Edema 0+. NEUROLOGICAL: Alert and motor intact. SKIN: LYMPHATICS: LABORATORY DATA: Reviewed. ASSESSMENT AND PLAN: 1. Stage 6 chronic kidney disease. Plan dialysis. 2. Hypertension, stable. 3. Anemia, stable. 4. Medication based on GFR appropriate. Job ID: [id number]
[2018-11-12] MEDS ORDERED: Heparin 1,000 UNITS/ML VIAL ONE (11:11)
[2018-11-12 11:16] LABS: Albumin 3.4 g/dL (3.5-5.0); Anion Gap 14 mmol/L (10-20); BUN (Urea Nitrogen) 55 mg/dL (8.4-25.7); BUN/Creatinine Ratio 12.44; Calc. Creatinine Clearance 23 mL/min (70-130); Calcium 8.9 mg/dL (7.8-10.44); Carbon Dioxide 23 mmol/L (22-29); Chloride 105 mmol/L (98-107); Estimated GFR-MDRD 14; Glucose 119 mg/dL (70-105); Potassium 4.1 mmol/L (3.5-5.1); Sodium 138 mmol/L (136-145)
[2018-11-12 14:31] VITALS: BMI 31.0
--- NOTE | 2018-11-12 21:57 | DIS ---
DATE OF ADMISSION: 11/03/2018 DATE OF DISCHARGE: 11/12/2018 CONDITION AT THE TIME OF DISCHARGE: Stable and improved. DISCHARGE DISPOSITION: Home. PRIMARY CARE PHYSICIAN: None. DISCHARGE DIAGNOSES: 1. Acute on chronic kidney disease, biopsy-proven IgA nephropathy. 2. Hyperparathyroidism of renal origin. 3. End-stage renal disease, started on dialysis this admission. 4. Dyslipidemia. 5. Hypertension with uncontrolled hypertension upon presentation. DISCHARGE MEDICATIONS: 1. Carvedilol 12.5 mg p.o. b.i.d. 2. Norvasc 10 mg daily. 3. Flomax 0.4 mg daily. 4. Lisinopril 10 mg daily. 5. Proscar 5 mg daily. IN-HOUSE CONSULTATION: 1. Nephrology, Dr. Zuniga and Humble. 2. General Surgery, Dr. Odell. PROCEDURES DONE IN THE HOSPITAL: 1. Renal ultrasound on 11/03/2018, which showed increased cortical echogenicity of both kidneys indicating chronic medical renal disease and prostatic hypertrophy. 2. Transthoracic echocardiogram on 11/04/2018, which shows EF of 60% to 65%, and grade 1/[address]-guided renal biopsy which showed sclerosing IgA nephropathy. 4. Temporary femoral dialysis catheter placement with subsequent removal. 5. Right IJ tunneled hemodialysis catheter placement as well as laparoscopic peritoneal dialysis catheter placement, left Rosalie AV fistula creation by Dr. Odell on 11/09/2018. HISTORY OF PRESENTING ILLNESS: Mr. Swan is a 53-year-old male with new diagnosis of hypertension. He came to the ER with complaints of headache and was found to have elevated blood pressure of 255/123. He was also found to have acute renal insufficiency with creatinine of 5.22, BUN of 49, which is new for him. He was admitted for further evaluation and care. Nephrology was consulted. Renal ultrasound was ordered. Please see admission history and physical dictated by Dr. Saavedra on 11/04/2018 for full details. HOSPITAL COURSE: The patient underwent thorough workup including renal ultrasound, which showed medical renal disease. Echo was done, which showed mild diastolic dysfunction. His blood pressure was under better control after restarting his medications and addition of lisinopril. He eventually underwent a renal biopsy when his renal function did not improve, which came back as IgA nephropathy. He was started on hemodialysis while in the hospital and eventually a PD catheter was placed in for home dialysis. He was also set up for outpatient hemodialysis for future use in case he needs that. For now, he will continue peritoneal dialysis. As of this morning, his outpatient hemodialysis has been set up. He has been cleared for discharge from Nephrology standpoint and is hemodynamically stable and eager to go home. He will be discharged. He was seen and examined prior to discharge. PHYSICAL EXAMINATION: VITAL SIGNS: This morning, blood pressure 127/73, heart rate 69, afebrile. No acute distress. He was seen and examined in hemodialysis. CHEST: Clear to auscultation bilaterally. HEART: Rate and rhythm regular. LABORATORY DATA: Discharge creatinine 4.42, potassium 4.1, sodium 138, chloride 105, bicarb 23, hemoglobin 11.2 with hematocrit of 33.5. His hepatitis B and C testing was negative in the hospital. He was instructed to follow up with Dr. Eldridge in the outpatient setting for Nephrology appointments and was instructed to follow up with primary care physician, preferably [facility], as he currently has no PCP. DISCHARGE PLAN: Discharge plan was discussed with the patient and he verbalized understanding. TIME SPENT: Total time spent in the discharge, 35 minutes. Job ID: [id number]
== END 2018-11-12 14:46 | disposition home or self-care (01) | DRG 673 ==
LOC: ERS 02:30 → OBSVTOIN 03:42 → INTOOBSV 03:42 → 2SE 03:42 → 2NO 11-04 15:11 → T4-B 11-07 12:35
PROVIDERS: ADMIT Family Medicine; ATTEND Family Medicine
PROC: 5A1D70Z Performance of Urinary Filtration, Intermittent, Less than 6 Hours Per Day (ICD-10-PCS; 2018-11-06)
PROC: 0TB03ZX Excision of Right Kidney, Percutaneous Approach, Diagnostic (ICD-10-PCS; 2018-11-06)
PROC: 0WHG43Z Insertion of Infusion Device into Peritoneal Cavity, Percutaneous Endoscopic Approach (ICD-10-PCS; principal; 2018-11-11)
PROC: 031C0ZF Bypass Left Radial Artery to Lower Arm Vein, Open Approach (ICD-10-PCS; 2018-11-11)
PROC: 3E1M39Z Irrigation of Peritoneal Cavity using Dialysate, Percutaneous Approach (ICD-10-PCS; 2018-11-11)
PROC: 02HV33Z Insertion of Infusion Device into Superior Vena Cava, Percutaneous Approach (ICD-10-PCS; 2018-11-11)
PROC: 0JH63XZ Insertion of Tunneled Vascular Access Device into Chest Subcutaneous Tissue and Fascia, Percutaneous Approach (ICD-10-PCS; 2018-11-11)
PROC: B5181ZA Fluoroscopy of Superior Vena Cava using Low Osmolar Contrast, Guidance (ICD-10-PCS; 2018-11-11)
DX: I12.0 Hypertensive chronic kidney disease with stage 5 chronic kidney disease or end stage renal disease (principal); N18.6 End stage renal disease; N25.81 Secondary hyperparathyroidism of renal origin; I16.1 Hypertensive emergency; N17.9 Acute kidney failure, unspecified; N28.9 Disorder of kidney and ureter, unspecified; E78.5 Hyperlipidemia, unspecified; F32.9 Major depressive disorder, single episode, unspecified; N40.0 Benign prostatic hyperplasia without lower urinary tract symptoms; E87.5 Hyperkalemia; D63.1 Anemia in chronic kidney disease; E55.9 Vitamin D deficiency, unspecified; Z99.2 Dependence on renal dialysis
CPT/HCPCS: 36415; 50200; 71045; 71046; 76770; 77012; 80048; 80053; 80069; 81001; 82088; 82306; 82436; 82533; 82570; 83516; 83520; 83835; 83883; 83970; 84133; 84156; 84244; 84300; 84484; 85025; 85610; 85730; 86256; 86704; 86706; 86803; 87340; 88329; 90935; 93005; 93306; 93970; 96374; C1752; C1769; G0257; G0365; J0360; J0690; J1100; J1642; J1644; J2001; J2250; J2405; J2704; J2720; J3010; J3490; Q9967

== ENCOUNTER 2018-11-30 13:21 | Emergency (ER) | payer SELFPAY ==
[2018-11-30 14:40] LABS: #Eosinphils 0.2 thou/uL (0.0-0.7); #Lymphocytes 1.3 thou/uL (1.20-3.40); #Monocytes 0.7 thou/uL (0.11-0.59); #Neutrophils 4.6 thou/uL (1.40-6.50); %Basophils 0.7 % (0.0-1.0); %Eosinophils 3.3 % (0.0-10.0); %Lymphocytes 19.3 % (21.0-51.0); %Monocytes 9.5 % (0.0-10.0); %Neutrophils 67.2 % (42.0-75.0); Hemoglobin 11.1 g/dL (14.0-18.0); Mean Corpuscular HGB CONC 33.5 g/dL (32.0-36.0); Mean Corpuscular Hemoglobin 30.7 pg (27.0-31.0); Mean Corpuscular Volume 91.7 fL (78.0-98.0); Mean Platelet Volume 7.2 fL (7.4-10.4); Platelet Count 199 thou/uL (130-400); RBC Distribution Width 11.5 % (11.5-14.5); Red Blood Cell (RBC) Count 3.62 mill/uL (4.70-6.10); White Blood Cell (WBC) Count 6.9 thou/uL (4.8-10.8)
[2018-11-30 14:57] LABS: Lactic Acid 1.6 mmol/L (0.5-2.2)
[2018-11-30 15:04] LABS: ALT (SGPT) Less than 7 U/L (8-55); AST (SGOT) 8 U/L (5-34); Albumin 3.9 g/dL (3.5-5.0); Alkaline Phosphatase 72 U/L (40-150); Anion Gap 15 mmol/L (10-20); BUN (Urea Nitrogen) 55 mg/dL (8.4-25.7); Bilirubin, Total 0.4 mg/dL (0.2-1.2); Calc. Creatinine Clearance 0 mL/min (70-130); Calcium 9.2 mg/dL (7.8-10.44); Carbon Dioxide 26 mmol/L (22-29); Chloride 98 mmol/L (98-107); Estimated GFR-MDRD 7; Globulin 2.6 g/dL (2.4-3.5); Glucose 148 mg/dL (70-105); Potassium 4.2 mmol/L (3.5-5.1); Protein, Total 6.5 g/dL (6.0-8.3); Sodium 135 mmol/L (136-145)
[2018-11-30 15:10] LABS: Troponin I Less than 0.010 ng/mL (< 0.028)
== END 2018-11-30 15:40 | disposition home or self-care (01) ==
LOC: ERS 13:21
DX: I95.9 Hypotension, unspecified (principal); R55 Syncope and collapse; E78.5 Hyperlipidemia, unspecified; F41.9 Anxiety disorder, unspecified; F32.9 Major depressive disorder, single episode, unspecified; Z79.899 Other long term (current) drug therapy
CPT/HCPCS: 36415; 80053; 83605; 84484; 85025; 93005

== ENCOUNTER 2019-07-04 10:29 | Outpatient (CLI) | payer MEDICARE ==
--- NOTE | 2019-07-04 10:43 | RAD ---
XR Ankle Lt 2 View History: Pain for one year Comparison: None. Findings: Mild bimalleolar soft tissue swelling. Moderate facet calcifications. Moderate plantar and dorsal calcaneal spurs. There is sclerosis of the talar dome. Findings of chronic osteochondral defect medial talar dome. Narrowing of the medial ankle mortise with osteophyte formation of the medial malleolus. Small ankle joint effusion. Mild midfoot degenerative change. Impression: Chronic findings. No acute osseous abnormality.
== END 2019-07-04 10:30 | disposition home or self-care (01) ==
LOC: BICRAD 10:29
PROVIDERS: ATTEND Family Medicine
DX: M25.572 Pain in left ankle and joints of left foot (principal)
CPT/HCPCS: 84550

== ENCOUNTER 2019-09-12 06:36 | Outpatient (CLI) | payer MEDICARE, OTHER ==
[2019-09-12 12:33] LABS: Hemoglobin 14.2 g/dL (14.0-18.0); Mean Corpuscular HGB CONC 33.2 g/dL (32.0-36.0); Mean Corpuscular Hemoglobin 31.5 pg (27.0-31.0); Mean Corpuscular Volume 94.8 fL (78.0-98.0); Mean Platelet Volume 7.3 fL (7.4-10.4); Platelet Count 214 thou/uL (130-400); RBC Distribution Width 12.5 % (11.5-14.5); Red Blood Cell (RBC) Count 4.51 mill/uL (4.70-6.10); White Blood Cell (WBC) Count 6.5 thou/uL (4.8-10.8)
[2019-09-12 12:43] LABS: PTT 30.3 SEC (22.9-36.1)
[2019-09-12 12:45] LABS: INR-International Normal Ratio 0.9; Prothrombin Time 12.1 sec (12.0-14.7)
[2019-09-12 12:52] LABS: Anion Gap 16 mmol/L (10-20); BUN (Urea Nitrogen) 43 mg/dL (8.4-25.7); Bacteria/HPF None Seen HPF (None Seen); Bilirubin Negative (Negative); Blood, Urine 1+ (Negative); Calc. Creatinine Clearance 0 mL/min (70-130); Calcium 8.4 mg/dL (7.8-10.44); Carbon Dioxide 23 mmol/L (22-29); Chloride 105 mmol/L (98-107); Clarity Clear (Clear); Estimated GFR-MDRD 12; Glucose 97 mg/dL (70-105); Glucose, Urine (Dipstick) Normal (Negative); Leukocyte Negative Leu/uL (Negative); Nitrite Negative (Negative); Potassium 3.8 mmol/L (3.5-5.1); Protein, Urine (Dipstick) 200 mg/dL (Neg-Trace); Sodium 140 mmol/L (136-145); Squamous Epithelial 0-3 HPF (0-3); Urobilinogen Normal mg/dL (Less than 2); WBC/HPF 0-3 HPF (0-3)
[2019-09-12 17:38] LABS: SARS-CoV-2 MS2 Positive; SARS-CoV-2 N Gene Positive; SARS-CoV-2 S Gene Positive; SARS-CoV-2 orf1ab Positive
--- NOTE | 2019-09-12 21:13 | EKG ---
Test Reason : Blood Pressure : / mmHG Vent. Rate : 087 BPM Atrial Rate : 087 BPM P-R Int : 164 ms QRS Dur : 096 ms QT Int : 374 ms P-R-T Axes : 031 099 -07 degrees QTc Int : 450 ms Normal sinus rhythm Rightward axis Possible Inferior infarct (cited on or before 30-NOV-2018) Abnormal ECG When compared with ECG of 30-NOV-2018 15:04, Questionable change in QRS axis Confirmed by Annette NEWBERRY ([id number]) on 09/12/2019 9:12:03 PM Referred By: JANETH Confirmed By:Annette NEWBERRY
== END 2019-09-12 06:37 | disposition home or self-care (01) ==
LOC: LABBT 06:36
PROVIDERS: ATTEND Urology
DX: U07.1 COVID-19 (principal); Z01.818 Encounter for other preprocedural examination; N40.1 Benign prostatic hyperplasia with lower urinary tract symptoms; R39.12 Poor urinary stream; R39.15 Urgency of urination; I12.0 Hypertensive chronic kidney disease with stage 5 chronic kidney disease or end stage renal disease; N18.6 End stage renal disease
CPT/HCPCS: 80048; 81001; 85027; 85610; 85730; 87086; 93005; U0003; 87635; 93010

== ENCOUNTER 2019-09-18 17:39 | Inpatient (IN) | payer MEDICARE, OTHER ==
[2019-09-18 18:37] LABS: #Lymphocytes 0.7 thou/uL (1.20-3.40); #Monocytes 0.6 thou/uL (0.11-0.59); #Neutrophils 6.7 thou/uL (1.40-6.50); %Basophils 0.1 % (0.0-1.0); %Eosinophils 0.2 % (0.0-10.0); %Lymphocytes 8.6 % (21.0-51.0); %Monocytes 7.8 % (0.0-10.0); %Neutrophils 83.3 % (42.0-75.0); Hemoglobin 14.6 g/dL (14.0-18.0); Mean Corpuscular HGB CONC 32.6 g/dL (32.0-36.0); Mean Corpuscular Hemoglobin 30.8 pg (27.0-31.0); Mean Corpuscular Volume 94.5 fL (78.0-98.0); Mean Platelet Volume 7.3 fL (7.4-10.4); Platelet Count 213 thou/uL (130-400); RBC Distribution Width 12.2 % (11.5-14.5); Red Blood Cell (RBC) Count 4.76 mill/uL (4.70-6.10); White Blood Cell (WBC) Count 8.1 thou/uL (4.8-10.8)
[2019-09-18 18:57] LABS: ALT (SGPT) 21 U/L (8-55); AST (SGOT) 26 U/L (5-34); Albumin 3.5 g/dL (3.5-5.0); Alkaline Phosphatase 131 U/L (40-110); Anion Gap 17 mmol/L (10-20); BUN (Urea Nitrogen) 51 mg/dL (8.4-25.7); Bilirubin, Total 0.3 mg/dL (0.2-1.2); Calc. Creatinine Clearance 0 mL/min (70-130); Calcium 7.7 mg/dL (7.8-10.44); Carbon Dioxide 25 mmol/L (22-29); Chloride 101 mmol/L (98-107); Estimated GFR-MDRD 8; Globulin 3.6 g/dL (2.4-3.5); Glucose 116 mg/dL (70-105); Protein, Total 7.1 g/dL (6.0-8.3); Sodium 139 mmol/L (136-145)
[2019-09-18] MEDS ORDERED: Sodium Chloride 0.9% 100 ML ONE (19:05)
[2019-09-18] MEDS ORDERED: cefTRIAXone\\ROCEPHIN 1 GM VIAL ONE (19:05)
[2019-09-18] MEDS ORDERED: Azithromycin 500 MG VIAL ONE (19:33)
[2019-09-18] MEDS ORDERED: Acetaminophen 500 MG TAB ONE (19:38)
--- NOTE | 2019-09-18 20:10 | RAD ---
EXAM: PORTABLE UPRIGHT CHEST: History: Pain. Covid positive. Comparison: 11-09-18 FINDINGS: Patchy parenchymal changes are noted in the right lower lobe and some mild ground glass opacity moore es in the left lower midlung zone. There is some lucency beneath the hemidiaphragm, concerning for fr ee intraperitoneal air. IMPRESSION: Findings are concerning for free intraperitoneal air. Patchy parenchymal changes in the lower lung zo sunny. Findings were discussed with Dr. Diaz by phone at approximately 6:55 p.m. Code CR POS: [facility]
[2019-09-18 20:13] LABS: Bilirubin Negative (Negative); Blood, Urine 2+ (Negative); Clarity Clear (Clear); Glucose, Urine (Dipstick) Normal (Negative); Leukocyte Negative Leu/uL (Negative); Nitrite Negative (Negative); Protein, Urine (Dipstick) 200 mg/dL (Neg-Trace); Squamous Epithelial 0-3 HPF (0-3); Urobilinogen Normal mg/dL (Less than 2); WBC/HPF 0-3 HPF (0-3)
[2019-09-18 20:14] LABS: Bacteria/HPF 1+ HPF (None Seen)
[2019-09-18] MEDS ORDERED: HYDROcodone/Acetaminophen 5/325 mg Tablet PO PRN (21:11)
[2019-09-18] MEDS ORDERED: Ondansetron PF 4 MG/2 ML Vial IVP PRN (21:11)
[2019-09-18] MEDS ORDERED: hydrALAZINE 20 MG/ML VIAL SLOW IVP PRN (21:24)
[2019-09-18 23:34] LABS: Legionella Urinary Ag Negative (Negative); Strep pneumo Urine Ag NEGATIVE (NEGATIVE)
--- NOTE | 2019-09-19 03:03 | HP ---
SOURCE OF THE HISTORY: From the patient, history is reliable. CHIEF COMPLAINT: I have been having fever. HISTORY OF PRESENT ILLNESS: This is a 54-year-old male patient who has a history of essential hypertension leading to hypertensive nephrosclerosis with subsequent development of end-stage renal disease, for which currently patient has a peritoneal dialysis catheter, but it is not clear if the patient is getting peritoneal dialysis or hemodialysis as the patient is currently minimally confused and with language barrier. Otherwise, the patient also has a history of dyslipidemia. According to the Burkinan interpretation, the patient has been having fever for the last few days, for which the patient was seen in the emergency department 2 days ago and patient had coronavirus testing which revealed a positive COVID PCR and the patient has been having fever for the last few days associated with cough productive of clear, white mucoid sputum and because of the persistence of fever, patient has finally decided to come to the emergency department where the patient had evaluation and patient was found to be having infiltrates involving the both lower lobes of the lungs, for which patient has been admitted to Internal Medicine service. Currently, patient is not requiring any oxygen and patient is saturating at 94% on room air. Denies any complaints of chest pain. No recent history of travel, any abdominal or urinary symptoms. PAST MEDICAL HISTORY: 1. Hypertension. 2. Hypertensive nephrosclerosis. 3. Dyslipidemia. 4. End-stage renal disease. PAST SURGICAL HISTORY: None. ALLERGIES: THE PATIENT IS NOT ALLERGIC TO ANY KNOWN MEDICATIONS. CURRENT MEDICATIONS: At home, 1. Norvasc 5 mg orally twice a day. 2. Calcitriol. 3. Proscar. 4. Flomax. SOCIAL HISTORY: Lives alone. Ambulates without any assistance and denies any history of tobacco abuse, alcohol abuse, or recreational drug abuse. FAMILY HISTORY: Not significant apart from hypertension. REVIEW OF SYSTEMS: As mentioned in the history of present illness. Apart from that, 14-point review of systems have been conducted and not contributory. PHYSICAL EXAMINATION: GENERAL: Middle-aged Burkinan male patient lying on the stretcher comfortably, not appears to be in any cardiopulmonary distress. HEAD: Mucous membranes are pink and moist. Acyanotic, anicteric. No finger clubbing or pedal edema. Head, atraumatic and normocephalic. VITAL SIGNS: In the emergency department, temperature 103, pulse 103, respirations 18, and blood pressure 148/80. ENT: Neck is supple. No jugular venous distention. No thyromegaly or carotid bruit. EYES: Extraocular movements are intact. Pupils are equal and reactive to light bilaterally. Accommodation reflex present. CHEST: Bilaterally symmetrical. Trachea is midline. Air entry is good bilaterally with bilateral inspiratory rhonchi at bases, but no wheezing. CARDIOVASCULAR: Normal intensity of S1 and S2 without S3. No murmurs or rub appreciated. ABDOMEN: Soft without any distention and the patient has a peritoneal dialysis catheter in the right lower quadrant of the abdomen without any erythema surrounding it or drainage. No organomegaly. Normoactive bowel sounds. DEAN FOR STUDENT AFFAIRS: The patient is alert, awake, oriented to time, place, person. Cranial nerves 2 through 12 are intact. No focal motor or sensory deficits. EXTREMITIES: No edema or calf asymmetry. SKIN: No rash or petechiae. LABORATORY DATA: WBC 8.1, hemoglobin 14.8, hematocrit 44.9, platelets 213. Sodium 139, potassium 4.0, chloride 101, bicarb 24, anion gap 17, BUN 51, creatinine 7.4, glucose 116, lactic acid 0.9, calcium 7.7, total bilirubin 0.3, AST 26, ALT 21, alkaline phosphatase 131, total protein 7.1, albumin 3.5, globulin 3.6. Urinalysis revealed negative nitrites and leukocyte esterase. Chest x-ray reveals findings concerning for intraperitoneal air. Otherwise, patchy parenchymal changes in the lower lung zones. ASSESSMENT: 1. Sepsis, present on admission. 2. Pneumonia involving the both lower lobes. 3. Positive coronavirus PCR. 4. End-stage renal disease. 5. Essential hypertension. 6. Dyslipidemia. PLAN: 1. The patient has been having fever for the last few days and the patient had positive coronavirus PCR a few days ago. Currently, the patient had infiltrates involving the both lower lobes, but otherwise the patient is not having any hypoxia. No obvious ground-glass opacities. We will treat the patient as community-acquired pneumonia with intravenous Rocephin and Zithromax. Otherwise, we will obtain urine Legionella antigen and streptococcal antigen. Obtain viral cultures. Check influenza screen. Keep the patient on isolation precautions as required for coronavirus. 2. It is not clear if patient is getting hemodialysis or peritoneal dialysis and we will consult patient's system support developer and we will discuss with the patient once proper Burkinan interpretation has been available to decide whether the patient needs a peritoneal dialysis or hemodialysis. 3. Resume home medications. Job ID: [id number]
[2019-09-19] MEDS: Acetaminophen 325 MG TAB PO PRN ×4 (04:12→20:42)
[2019-09-19 05:07] LABS: Anion Gap 20 mmol/L (10-20); BUN (Urea Nitrogen) 55 mg/dL (8.4-25.7); Calc. Creatinine Clearance 14 mL/min (70-130); Calcium 7.5 mg/dL (7.8-10.44); Carbon Dioxide 20 mmol/L (22-29); Chloride 104 mmol/L (98-107); Estimated GFR-MDRD 8; Glucose 89 mg/dL (70-105); Potassium 3.9 mmol/L (3.5-5.1); Sodium 140 mmol/L (136-145)
[2019-09-19 05:33] LABS: #Basophils 0.1 thou/uL (0.0-0.2); #Lymphocytes 1.4 thou/uL (1.20-3.40); #Monocytes 0.7 thou/uL (0.11-0.59); #Neutrophils 5.9 thou/uL (1.40-6.50); %Basophils 1.5 % (0.0-1.0); %Eosinophils 0.3 % (0.0-10.0); %Monocytes 8.5 % (0.0-10.0); %Neutrophils 72.8 % (42.0-75.0); Hemoglobin 14.3 g/dL (14.0-18.0); Mean Corpuscular HGB CONC 32.6 g/dL (32.0-36.0); Mean Corpuscular Hemoglobin 30.8 pg (27.0-31.0); Mean Corpuscular Volume 94.6 fL (78.0-98.0); Mean Platelet Volume 7.9 fL (7.4-10.4); Platelet Count 170 thou/uL (130-400); RBC Distribution Width 12.2 % (11.5-14.5); Red Blood Cell (RBC) Count 4.64 mill/uL (4.70-6.10); White Blood Cell (WBC) Count 8.1 thou/uL (4.8-10.8)
[2019-09-19] MEDS: Calcitriol 0.25 MCG CAP PO SCH (08:01)
[2019-09-19] MEDS: Amlodipine 5 MG TAB PO SCH (08:02)
[2019-09-19] MEDS: Allopurinol 100 MG TAB PO SCH (08:02)
[2019-09-19] MEDS: Heparin 5,000 UNITS/ML VIAL SC SCH ×2 (08:02→19:34)
[2019-09-19] MEDS: Tamsulosin HCl 0.4 MG CAP PO SCH (08:02)
[2019-09-19] MEDS ORDERED: Prevnar 13-Val Conj/PF 0.5 ML SYRINGE IM ONE (09:00)
[2019-09-19] MEDS: cefTRIAXone\\ROCEPHIN 1 GM in Sodium Chloride 0.9% 100 ML IVPB SCH (17:57)
--- NOTE | 2019-09-19 19:11 | CON ---
DATE OF CONSULTATION: 09/19/2019 CONSULTING PHYSICIAN: Dr. Dawson. REASON FOR CONSULTATION: End-stage renal disease evaluation. REASON FOR ADMISSION: Fever. HISTORY OF PRESENT ILLNESS: A 54-year-old male with history of hypertension, end-stage renal disease, came to the hospital with above complaints. The patient gets peritoneal dialysis. Nephrology consulted for arrangement of PD while at the hospital. He is having fever and is also COVID positive and is on isolation. PAST MEDICAL HISTORY: Positive for hypertension, hyperlipidemia, end-stage renal disease. PAST SURGICAL HISTORY: Dialysis catheter placement. HOME MEDICATIONS: 1. Norvasc. 2. Calcitriol. 3. Proscar. 4. Flomax. ALLERGIES: NO KNOWN DRUG ALLERGIES. SOCIAL HISTORY: No smoking, alcohol or drugs. FAMILY HISTORY: No history of kidney disease. REVIEW OF SYSTEMS: The following complete review of systems was negative, unless otherwise mentioned in the HPI or below: Constitutional: Weight loss or gain, ability to conduct usual activities. Skin: Rash, itching. Eyes: Double vision, pain. ENT/Mouth: Nose bleeding, neck stiffness, pain, tenderness. Cardiovascular: Palpitations, dyspnea on exertion, orthopnea. Respiratory: Shortness of breath, wheezing, cough, hemoptysis, fever or night sweats. Gastrointestinal: Poor appetite, abdominal pain, heartburn, nausea, vomiting, constipation, or diarrhea. Genitourinary: Urgency, frequency, dysuria, nocturia. Musculoskeletal: Pain, swelling. Neurologic/Psychiatric: Anxiety, depression. Allergy/Immunologic: Skin rash, bleeding tendency. PHYSICAL EXAMINATION: GENERAL: This is a well-built male, who is on COVID isolation. VITAL SIGNS: Temperature 99.2, pulse 94, respiratory rate 16, blood pressure 130/73. LABORATORY DATA: Potassium 3.9, BUN is 55, creatinine is 7.1. ASSESSMENT AND PLAN: 1. End-stage renal disease. Continue on peritoneal dialysis as tolerated. Dialysis nurse notified. 2. History of hypertension, stable. 3. Chronic anemia. 4. Mild fluid overload. We will remove fluid with dialysis. 5. Continue supportive care and we will continue on peritoneal dialysis as tolerated. Job ID: [id number]
[2019-09-19] MEDS: Finasteride 5 MG TAB PO SCH (19:34)
[2019-09-19] MEDS: Azithromycin 500 MG in Sodium Chloride 0.9% 250 ML 250 ML IVPB SCH (19:35)
--- NOTE | 2019-09-19 20:31 | PDOC.HOSPP ---
- Subjective Encounter Date: 09/19/19 - Objective Vital Signs & Weight: Vital Signs (12 hours) Temp Pulse Resp BP Pulse Ox 09/19/19 19:50 102.4 F H 110 H 28 H 131/67 97 09/19/19 18:00 100.5 F H 09/19/19 16:15 103.4 F H 108 H 18 130/61 100 09/19/19 11:50 99.2 F 94 16 131/73 93 L Weight Weight 185 lb 9.6 oz I&O: 09/18/19 09/19/19 09/20/19 06:59 06:59 06:59 Intake Total 820 Output Total 400 450 Balance -400 370 Result Diagrams: 09/19/19 04:25 09/19/19 04:25 Hospitalist ROS - Medication Medications: Active Medications Generic Name Dose Route Start Last Admin Trade Name Freq PRN Reason Stop Dose Admin Acetaminophen 650 mg 09/18/19 21:11 09/19/19 16:21 Tylenol PO 650 mg Q4H PRN Administration Headache/Fever/Mild Pain (1-3) Allopurinol 100 mg 09/19/19 09:00 09/19/19 08:02 Zyloprim PO 100 mg DAILY SALEEM Administration Amlodipine Besylate 5 mg 09/19/19 09:00 09/19/19 08:02 Norvasc PO 5 mg DAILY SALEEM Administration Calcitriol 0.25 mcg 09/19/19 09:00 09/19/19 08:01 Rocaltrol PO 0.25 mcg MoWeFr SALEEM Administration Finasteride 5 mg 09/19/19 21:00 09/19/19 19:34 Proscar PO 5 mg HS SALEEM Administration Heparin Sodium (Porcine) 5,000 units 09/19/19 09:00 09/19/19 19:34 Heparin SC 5,000 units BID SALEEM Administration Azithromycin 500 mg/ Sodium 250 mls @ 250 mls/hr 09/19/19 21:00 09/19/19 19: 35 Chloride IVPB 250 mls 2100 SALEEM Administration Ceftriaxone Sodium 1 gm/ 100 mls @ 200 mls/hr 09/19/19 18:00 09/19/19 17:57 Sodium Chloride IVPB 100 mls 1800 SALEEM Administration Tamsulosin HCl 0.4 mg 09/19/19 09:00 09/19/19 08:02 Flomax PO 0.4 mg DAILY SALEEM Administration - Exam General Appearance: awake alert ENT: normocephalic atraumatic Neck: supple Respiratory: normal chest expansion, no tachypnea Gastrointestinal: soft Neurological: cranial nerve grossly intact, no focal deficits Hosp A/P (1) COVID-19 Code(s): U07.1 - COVID-19 Status: Acute (2) Pneumonia Code(s): J18.9 - PNEUMONIA, UNSPECIFIED ORGANISM Status: Acute (3) ESRD (end stage renal disease) Code(s): N18.6 - END STAGE RENAL DISEASE Status: Acute - Plan The patient has been persistently febrile. He is saturating well on room air at the present time. Infiltrates were noted on chest x-ray. I will monitor the patient for another 24 hours to see if his condition deteriorates. He will likely be discharged if he remains stable. Continue peritoneal dialysis per nephrology.
[2019-09-20] MEDS: Benzonatate 100 MG CAP PO PRN ×2 (04:02→20:03)
[2019-09-20] MEDS: Amlodipine 5 MG TAB PO SCH (07:40)
[2019-09-20] MEDS: Tamsulosin HCl 0.4 MG CAP PO SCH (07:40)
[2019-09-20] MEDS: Heparin 5,000 UNITS/ML VIAL SC SCH ×2 (07:40→19:56)
[2019-09-20] MEDS: Allopurinol 100 MG TAB PO SCH (07:40)
[2019-09-20] MEDS: Acetaminophen 325 MG TAB PO PRN ×3 (12:05→21:29)
--- NOTE | 2019-09-20 12:38 | PRG ---
DATE OF SERVICE: 09/20/2019 SUBJECTIVE: The patient is on COVID isolation. OBJECTIVE: VITAL SIGNS: Temperature 99.7, pulse 111, respiratory rate , blood pressure 154/75. LABORATORY DATA: Not done. ASSESSMENT AND PLAN: 1. End-stage renal disease. We will continue on peritoneal dialysis as tolerated. 2. Edema, controlled. 3. History of hypertension. 4. History of anemia, stable. 5. COVID-19 status. Agree with ID consult and need close monitoring. The patient is high risk for complications. Job ID: [id number]
[2019-09-20] MEDS: cefTRIAXone\\ROCEPHIN 1 GM in Sodium Chloride 0.9% 100 ML IVPB SCH (16:52)
--- NOTE | 2019-09-20 17:22 | PDOC.HOSPP ---
- Subjective Encounter Date: 09/20/19 Subjective: The patient appears to be resting comfortably. He denies any new complaints and asked about going home. - Objective Vital Signs & Weight: Vital Signs (12 hours) Temp Pulse Resp BP Pulse Ox 09/20/19 14:40 98.9 F 99 24 H 114/66 94 L 09/20/19 12:05 101.5 F H 113 H 24 H 133/67 94 L 09/20/19 07:45 99.7 F H 111 H 26 H 155/75 H 93 L Weight Weight 186 lb 6.4 oz I&O: 09/19/19 09/20/19 09/21/19 06:59 06:59 06:59 Intake Total 1470 600 Output Total 400 825 250 Balance -400 645 350 Result Diagrams: 09/19/19 04:25 09/19/19 04:25 Hospitalist ROS - Medication Medications: Active Medications Generic Name Dose Route Start Last Admin Trade Name Freq PRN Reason Stop Dose Admin Acetaminophen 650 mg 09/18/19 21:11 09/20/19 12:05 Tylenol PO 650 mg Q4H PRN Administration Headache/Fever/Mild Pain (1-3) Allopurinol 100 mg 09/19/19 09:00 09/20/19 07:40 Zyloprim PO 100 mg DAILY SALEEM Administration Amlodipine Besylate 5 mg 09/19/19 09:00 09/20/19 07:40 Norvasc PO 5 mg DAILY SALEEM Administration Benzonatate 100 mg 09/19/19 18:44 09/20/19 04:02 Tessalon PO 100 mg BIDPRN PRN Administration Cough Calcitriol 0.25 mcg 09/19/19 09:00 09/19/19 08:01 Rocaltrol PO 0.25 mcg MoWeFr SALEEM Administration Finasteride 5 mg 09/19/19 21:00 09/19/19 19:34 Proscar PO 5 mg HS SALEEM Administration Heparin Sodium (Porcine) 5,000 units 09/19/19 09:00 09/20/19 07:40 Heparin SC 5,000 units BID SALEEM Administration Azithromycin 500 mg/ Sodium 250 mls @ 250 mls/hr 09/19/19 21:00 09/19/19 19: 35 Chloride IVPB 250 mls 2100 SALEEM Administration Ceftriaxone Sodium 1 gm/ 100 mls @ 200 mls/hr 09/19/19 18:00 09/20/19 16:52 Sodium Chloride IVPB 100 mls 1800 SALEEM Administration Tamsulosin HCl 0.4 mg 09/19/19 09:00 09/20/19 07:40 Flomax PO 0.4 mg DAILY SALEEM Administration - Exam General Appearance: awake alert ENT: normocephalic atraumatic Neck: supple Heart - other findings: Tachycardia Respiratory: normal chest expansion, tachypneic Neurological: cranial nerve grossly intact, no focal deficits Hosp A/P (1) COVID-19 Code(s): U07.1 - COVID-19 Status: Acute (2) Pneumonia Code(s): J18.9 - PNEUMONIA, UNSPECIFIED ORGANISM Status: Acute (3) ESRD (end stage renal disease) Code(s): N18.6 - END STAGE RENAL DISEASE Status: Acute - Plan Persistent fever now associated with tachypnea and tachycardia meeting the criteria of sepsis. This is secondary to pneumonia due to COVID-19. He is becoming more hypoxic. This was discussed with ID. The patient might be a candidate for convalescent plasma therapy.
[2019-09-20] MEDS: Finasteride 5 MG TAB PO SCH (19:56)
[2019-09-20] MEDS: Azithromycin 500 MG in Sodium Chloride 0.9% 250 ML 250 ML IVPB SCH (20:25)
--- NOTE | 2019-09-21 06:18 | CON ---
DATE OF CONSULTATION: 09/20/2019 REASON FOR CONSULTATION: COVID-19 pneumonia. HISTORY OF PRESENT ILLNESS: A 54-year-old with a history of IgA nephropathy, who is currently on peritoneal dialysis. He is not taking any immunosuppressive medication and on 09/15, developed respiratory symptoms with weakness, hypotension, cough. Did not have any dyspnea. No abdominal pain, but some diarrhea. He did have fever. He did not have any headaches. No abdominal pain and again no genitourinary symptoms. On arrival, his BP was 120/80, pulse 113, respiratory rate 18, temperature 103, O2 saturation 95, and the lungs were clear. He is tachycardic. Abdomen is soft. Initial findings included white cell count 8.1, hemoglobin 14.3, 83% neutrophils with 700 lymphocytes, creatinine 7.47, calcium 7.7. Transaminases normal. Alkaline phosphatase 131, globulin 3.6. Urinalysis 11 to 20 rbc's. strep pneumonia negative. COVID test was reportedly positive from outside hospital, actually from 09/11 there is a hospital test that was positive on the , so this is eight days ago. He is currently feeling better, still coughing intermittently, able to have a conversation without interruption. REVIEW OF SYSTEMS: His 10-point review of systems otherwise positive for diarrhea. He does not have abdominal pain. Doing his peritoneal dialysis without problems. PAST MEDICAL HISTORY: IgA nephropathy, biopsy-proven, hyperparathyroidism, end-stage renal disease on peritoneal dialysis. He has had dialysis access placed but it has been removed. SOCIAL HISTORY: Never smoker. Lives in the area with family. ALLERGIES: NONE. CURRENT MEDICATIONS: 1. Allopurinol. 2. Norvasc. 3. Azithromycin. 4. Ceftriaxone. 5. Zofran. 6. Flomax. FAMILY HISTORY: Noncontributory. PHYSICAL EXAMINATION: VITAL SIGNS: T-max 103.4 on 09/18, he is now 98.9, BP 130/60, pulse 99, respirations 24, O2 saturation 94% on room air. O2 sats have pretty much remained the same since the . GENERAL: He is awake, alert, oriented, does not appear in distress. Coughing intermittently. Peripheral IV access. No Lai catheter. Peritoneal dialysis catheter with normal appearing exit site. No lymphadenopathy. HEENT: Ocular movements conjugate. Sclerae white. Pupils are equal. Oral cavity, normal. Numerous teeth in place with some decay. NECK: Supple. No jugular vein distention. LUNGS: Symmetric breath sounds. Few crackles in the right base. HEART: S1, S2, regular rate. No S3 or S4. ABDOMEN: Soft. Not distended or tender. No ascites. No bladder distention. EXTREMITIES: Moves extremities equally. No edema. Pulses 1+ in dorsalis pedis. No joint inflammatory activity. NEUROLOGIC: He is awake, alert, and oriented. Follows commands. Speech is normal. Recollection is normal. LABORATORY DATA: White cell count is now 8.1, hemoglobin 14.3, neutrophil percent is 72, and lymphocytes are up to 1.4. IMAGING STUDIES: Chest x-ray with subsegmental areas of infiltration with patchy distribution. ASSESSMENT: 1. IgA nephropathy, biopsy-proven on peritoneal dialysis. 2. COVID-19 pneumonia. DISCUSSION: The patient currently is on room air, so he has etdy-lx-efatgolj disease. He does not qualify for Remdesivir because of his renal dysfunction, and I do not think he meets criteria for tocilizumab or convalescent plasma. We will submit ferritin, D-dimer, and C-reactive protein, and monitor them every other day. Antimicrobials can be discontinued. Job ID: [id number] [facility]
--- NOTE | 2019-09-21 06:25 | CON ---
DATE OF CONSULTATION: HISTORY OF PRESENT ILLNESS: Alfonso Swan is a 54-year-old [place] gentleman who is a godwin positive patient, being consulted regarding abnormal chest x-ray. He apparently got weak, syncopal episode. He has apparently family issues. Father several days ago. He has known end-stage renal disease, being followed by Nephrology with peritoneal dialysis. He denies any cough or sputum production. PAST MEDICAL HISTORY: Hypertension, end-stage renal disease. PAST SURGICAL HISTORY: Access, peritoneal. HOME MEDICATIONS: 1. Norvasc 5. 2. Allopurinol 100. ALLERGIES: NONE. TOBACCO: None. ALCOHOL: None. REVIEW OF SYSTEMS: Ten-point negative. PHYSICAL EXAMINATION: VITAL SIGNS: Temperature 98, pulse 99, respiratory rate 24, saturations 94 on room air, blood pressure 140/56. CHEST: No wheezing or crackles. CARDIAC: Normal S1, S2. No gallops. ABDOMEN: No masses. LABORATORY DATA: Chest x-ray shows bilateral infiltrates. positive. Otherwise additional lab, white count is only 8000, no left shift. Creatinine 7, BUN 55. IMPRESSION AND PLAN: Abnormal chest x-ray, fluid overload versus godwin positive pneumonia, end-stage renal disease, on peritoneal dialysis. The patient appears to be relatively asymptomatic. I would continue Zithromax and ceftriaxone as ordered. If his condition gets worse, we may consider a trial of low-dose steroids. Consultation note, 70 minutes, 50% direct patient care. Job ID: [id number]
--- NOTE | 2019-09-21 09:21 | PRG ---
DATE OF SERVICE: 09/21/2019 SUBJECTIVE: This morning, awake, alert, and responsive. OBJECTIVE: VITAL SIGNS: Temperature 100.8, pulse 117, respiratory rate 36, sats 98% on 2 L, blood pressure 170/82. CHEST: No wheezing, crackles. CARDIAC: Normal S1, S2. No gallops. ABDOMEN: No masses. ASSESSMENT: Chronic renal failure, on peritoneal dialysis. PLAN: Continue antibiotics as prescribed, Zithromax, Rocephin. Once fever resolves, he could probably be discharged home. We will follow. Job ID: [id number]
[2019-09-21] MEDS: Calcitriol 0.25 MCG CAP PO SCH (10:13)
[2019-09-21] MEDS: Amlodipine 5 MG TAB PO SCH ×2 (10:13→10:43)
[2019-09-21] MEDS: Tamsulosin HCl 0.4 MG CAP PO SCH (10:14)
[2019-09-21] MEDS: Heparin 5,000 UNITS/ML VIAL SC SCH ×2 (10:14→20:35)
[2019-09-21] MEDS ORDERED: Allopurinol 100 MG TAB PO SCH (10:30)
[2019-09-21] MEDS: Acetaminophen 325 MG TAB PO PRN ×2 (10:39→20:51)
--- NOTE | 2019-09-21 13:09 | PRG ---
DATE OF SERVICE: 09/21/2019 SUBJECTIVE: The patient on COVID isolation. OBJECTIVE: VITAL SIGNS: Temperature 98.7, pulse 100, respiratory rate 20, and blood pressure 124/61. LABORATORY DATA: No labs done today. ASSESSMENT AND PLAN: 1. End-stage renal disease. Continue on peritoneal dialysis. 2. Edema, controlled. 3. Hypertension. 4. Chronic anemia. 5. COVID-19 status. Follow up with ID recommendations. 6. Continue dialysis peritoneal dialysis as tolerated. Job ID: [id number]
--- NOTE | 2019-09-21 16:52 | PRG ---
DATE OF SERVICE: 09/21/2019 SUBJECTIVE: The patient pretty much only complains of his frequent coughing spells, mostly dry, little bit of headaches, but no dyspnea at the moment. No chest pain. No abdominal pain. Did diarrhea cease and still having temperature elevation, latest early this morning. OBJECTIVE: VITAL SIGNS: O2 saturations are 91 to 95 on 2 L. He is little tachycardic at 100. HEENT: Conjunctival hyperemia. Pupils are equal. LUNGS: With a few crackles at the bases. HEART: S1 and S2, regular rate. ABDOMEN: Soft and not distended. EXTREMITIES: Moves extremities equally. LABORATORY DATA: WBC 8.1, hemoglobin 14, platelets 170. The D-dimer on the was 1, and the ferritin is pretty high at 3000. CRP is high at 25. ASSESSMENT AND DISCUSSION: IgA nephropathy, on peritoneal dialysis. COVID-19 pneumonia, now with significant inflammatory activity noted and some worsening O2 saturations. He is not eligible for remdesivir due to renal dysfunction. He may be eligible for convalescent plasma and tocilizumab in view of the high levels of inflammatory markers. Job ID: [id number] [facility]
[2019-09-21] MEDS: Benzonatate 100 MG CAP PO PRN (17:28)
[2019-09-21] MEDS: cefTRIAXone\\ROCEPHIN 1 GM in Sodium Chloride 0.9% 100 ML IVPB SCH (17:28)
--- NOTE | 2019-09-21 19:03 | PDOC.HOSPP ---
- Subjective Encounter Date: 09/21/19 Subjective: C/O dry cough and SOB - Objective Vital Signs & Weight: Vital Signs (12 hours) Temp Pulse Resp BP Pulse Ox 09/21/19 17:22 97.2 F L 105 H 22 H 156/72 H 93 L 09/21/19 12:00 98.7 F 100 20 124/61 91 L 09/21/19 10:14 103.3 F H 105 H 22 H 112/68 92 L Weight Weight 184 lb 14.4 oz I&O: 09/20/19 09/21/19 09/22/19 06:59 06:59 06:59 Intake Total 1470 1910 1060 Output Total 825 725 125 Balance 645 1185 935 Result Diagrams: 09/19/19 04:25 09/19/19 04:25 Hospitalist ROS - Medication Medications: Active Medications Generic Name Dose Route Start Last Admin Trade Name Freq PRN Reason Stop Dose Admin Acetaminophen 650 mg 09/18/19 21:11 09/21/19 10:39 Tylenol PO 650 mg Q4H PRN Administration Headache/Fever/Mild Pain (1-3) Allopurinol 100 mg 09/19/19 09:00 09/20/19 07:40 Zyloprim PO 100 mg DAILY SALEEM Administration Amlodipine Besylate 5 mg 09/19/19 09:00 09/21/19 10:43 Norvasc PO Not Given DAILY SALEEM Benzonatate 100 mg 09/19/19 18:44 09/21/19 17:28 Tessalon PO 100 mg BIDPRN PRN Administration Cough Calcitriol 0.25 mcg 09/19/19 09:00 09/21/19 10:13 Rocaltrol PO 0.25 mcg MoWeFr SALEEM Administration Finasteride 5 mg 09/19/19 21:00 09/20/19 19:56 Proscar PO 5 mg HS SALEEM Administration Heparin Sodium (Porcine) 5,000 units 09/19/19 09:00 09/21/19 10:14 Heparin SC 5,000 units BID SALEEM Administration Azithromycin 500 mg/ Sodium 250 mls @ 250 mls/hr 09/19/19 21:00 09/20/19 20: 25 Chloride IVPB 250 mls 2100 SALEEM Administration Ceftriaxone Sodium 1 gm/ 100 mls @ 200 mls/hr 09/19/19 18:00 09/21/19 17:28 Sodium Chloride IVPB 100 mls 1800 SALEEM Administration Tamsulosin HCl 0.4 mg 09/19/19 09:00 09/21/19 10:14 Flomax PO 0.4 mg DAILY SALEEM Administration - Exam General Appearance: awake alert ENT: normocephalic atraumatic Neck: supple, no JVD Heart - other findings: Regular tachycardia Respiratory: normal chest expansion, tachypneic Gastrointestinal: soft Neurological: cranial nerve grossly intact, no focal deficits Hosp A/P (1) COVID-19 Code(s): U07.1 - COVID-19 Status: Acute (2) Pneumonia Code(s): J18.9 - PNEUMONIA, UNSPECIFIED ORGANISM Status: Acute (3) ESRD (end stage renal disease) Code(s): N18.6 - END STAGE RENAL DISEASE Status: Acute - Plan Persistent fever now associated with tachypnea and tachycardia meeting the criteria of sepsis. This is secondary to pneumonia due to COVID-19. Now requiring O2 to maintain saturations over 90%. ID assesing the need for convalescent plasma therapy or IL6 inhibitors.
[2019-09-21] MEDS: Finasteride 5 MG TAB PO SCH (20:35)
[2019-09-21] MEDS: Azithromycin 500 MG in Sodium Chloride 0.9% 250 ML 250 ML IVPB SCH (20:35)
[2019-09-22 05:37] LABS: Anion Gap 15 mmol/L (10-20); BUN (Urea Nitrogen) 50 mg/dL (8.4-25.7); Calc. Creatinine Clearance 17 mL/min (70-130); Calcium 8.3 mg/dL (7.8-10.44); Carbon Dioxide 24 mmol/L (22-29); Chloride 100 mmol/L (98-107); Estimated GFR-MDRD 10; Glucose 146 mg/dL (70-105); Potassium 3.1 mmol/L (3.5-5.1); Sodium 136 mmol/L (136-145)
[2019-09-22] MEDS: Amlodipine 5 MG TAB PO SCH (07:43)
[2019-09-22] MEDS: Heparin 5,000 UNITS/ML VIAL SC SCH ×2 (07:43→21:36)
[2019-09-22] MEDS: Tamsulosin HCl 0.4 MG CAP PO SCH (07:43)
[2019-09-22] MEDS: Allopurinol 100 MG TAB PO SCH (07:43)
--- NOTE | 2019-09-22 09:59 | PRG ---
DATE OF SERVICE: 09/22/2019 SUBJECTIVE: Alfonso Swan this morning, he is doing better. OBJECTIVE: VITAL SIGNS: Temperature 99, pulse 91, respiratory rate 16, saturations 90% on room air, blood pressure 101/57. LUNGS: No wheezing or crackles. CARDIAC: Normal S1 and S2. No gallops. ABDOMEN: No masses. ASSESSMENT AND PLAN: 1. Coronavirus. Probably pneumonia, on Zithromax and ceftriaxone. 2. Renal failure, being dialyzed peritoneally. 3. The patient is much improved. Can probably be switched over to oral antibiotic. 4. Disposition as per primary care physician. Job ID: [id number]
[2019-09-22] MEDS ORDERED: Potassium Chloride 20 MEQ TAB PO SCH ×3 (10:00→13:00)
--- NOTE | 2019-09-22 12:41 | PRG ---
DATE OF SERVICE: 09/22/2019 SUBJECTIVE: The patient on COVID isolation OBJECTIVE: VITAL SIGNS: Temperature 99.5, pulse 91, respiratory rate 18, and blood pressure 105/57. LABORATORY DATA: Potassium 3.1, BUN is 50, and creatinine is 4.8. ASSESSMENT AND PLAN: 1. End-stage renal disease. Continue on peritoneal dialysis. 2. Edema, controlled. 3. History of hypertension. 4. Chronic anemia. 5. Hypokalemia. We will replace potassium today. 6. Monitor labs. Job ID: [id number]
--- NOTE | 2019-09-22 15:47 | PDOC.HOSPP ---
- Subjective Encounter Date: 09/22/19 Subjective: Afebrile today. - Objective Vital Signs & Weight: Vital Signs (12 hours) Temp Pulse Resp BP BP Pulse Ox 09/22/19 15:10 99.0 F 95 16 95/54 L 94 L 09/22/19 12:00 99.5 F 97 20 134/74 95 09/22/19 07:50 99.5 F 91 16 105/57 L 95 09/22/19 05:00 99.4 F 91 18 122/65 93 L Weight Weight 184 lb 14.4 oz I&O: 09/21/19 09/22/19 09/23/19 06:59 06:59 06:59 Intake Total 1910 1060 Output Total 725 125 Balance 1185 935 Result Diagrams: 09/19/19 04:25 09/22/19 05:04 Hospitalist ROS - Medication Medications: Active Medications Generic Name Dose Route Start Last Admin Trade Name Freq PRN Reason Stop Dose Admin Acetaminophen 650 mg 09/18/19 21:11 09/21/19 20:51 Tylenol PO 650 mg Q4H PRN Administration Headache/Fever/Mild Pain (1-3) Allopurinol 100 mg 09/19/19 09:00 09/22/19 07:43 Zyloprim PO 100 mg DAILY SALEEM Administration Amlodipine Besylate 5 mg 09/19/19 09:00 09/22/19 07:43 Norvasc PO 5 mg DAILY SALEEM Administration Benzonatate 100 mg 09/19/19 18:44 09/21/19 17:28 Tessalon PO 100 mg BIDPRN PRN Administration Cough Calcitriol 0.25 mcg 09/19/19 09:00 09/21/19 10:13 Rocaltrol PO 0.25 mcg MoWeFr SALEEM Administration Finasteride 5 mg 09/19/19 21:00 09/21/19 20:35 Proscar PO 5 mg HS SALEEM Administration Heparin Sodium (Porcine) 5,000 units 09/19/19 09:00 09/22/19 07:43 Heparin SC 5,000 units BID SALEEM Administration Azithromycin 500 mg/ Sodium 250 mls @ 250 mls/hr 09/19/19 21:00 09/21/19 20: 35 Chloride IVPB 250 mls 2100 SALEEM Administration Ceftriaxone Sodium 1 gm/ 100 mls @ 200 mls/hr 09/19/19 18:00 09/21/19 17:28 Sodium Chloride IVPB 100 mls 1800 SALEEM Administration Tamsulosin HCl 0.4 mg 09/19/19 09:00 09/22/19 07:43 Flomax PO 0.4 mg DAILY SALEEM Administration - Exam General Appearance: awake alert ENT: normocephalic atraumatic Neck: supple Heart: RRR Respiratory: normal chest expansion, no tachypnea Extremities: no edema Neurological: cranial nerve grossly intact, no focal deficits Hosp A/P (1) COVID-19 Code(s): U07.1 - COVID-19 Status: Acute (2) Pneumonia Code(s): J18.9 - PNEUMONIA, UNSPECIFIED ORGANISM Status: Acute (3) ESRD (end stage renal disease) Code(s): N18.6 - END STAGE RENAL DISEASE Status: Acute - Plan First day without fevers. Still requiring supplemental oxygen. This is secondary to pneumonia due to COVID-19. Continue supportive care. Can be discharged once hypoxia improves.
[2019-09-22] MEDS: cefTRIAXone\\ROCEPHIN 1 GM in Sodium Chloride 0.9% 100 ML IVPB SCH (17:49)
[2019-09-22] MEDS: Azithromycin 500 MG in Sodium Chloride 0.9% 250 ML 250 ML IVPB SCH (21:36)
[2019-09-22] MEDS: Finasteride 5 MG TAB PO SCH (21:36)
[2019-09-23] MEDS: Tamsulosin HCl 0.4 MG CAP PO SCH (09:08)
[2019-09-23] MEDS: Allopurinol 100 MG TAB PO SCH (09:08)
[2019-09-23] MEDS: Heparin 5,000 UNITS/ML VIAL SC SCH (09:08)
[2019-09-23] MEDS: Amlodipine 5 MG TAB PO SCH (09:08)
[2019-09-23] MEDS: Calcitriol 0.25 MCG CAP PO SCH (09:09)
--- NOTE | 2019-09-23 10:28 | PRG ---
DATE OF SERVICE: 09/23/2019 Temperature 98, pulse , saturations 92% on 2 L, blood pressure 177/72. Denies any shortness of breath, coughing, or wheezing. He is afebrile. Cultures are negative. Chest, no wheezing or crackles. Cardiac; normal S1 and S2. Coronavirus pneumonia in a renal failure patient. Infectious Disease following the patient. I would suggest switching over to oral medication antibiotic. Home in the next several days when stable. Job ID: [id number]
--- NOTE | 2019-09-23 11:05 | PRG ---
DATE OF SERVICE: 09/23/2019 SUBJECTIVE: The patient on COVID isolation. OBJECTIVE: VITAL SIGNS: Temperature 99.0, pulse 89, respiratory rate 18, blood pressure 125/79. LABORATORY DATA: Not done. ASSESSMENT AND PLAN: 1. End-stage renal disease. Continue on peritoneal dialysis. 2. Edema. 3. History of hypertension. 4. Chronic anemia. 5. Hypokalemia, replaced yesterday. 6. Continue peritoneal dialysis as tolerated. Job ID: [id number]
--- NOTE | 2019-09-23 15:47 | PDOC.HOSPP ---
- Subjective Encounter Date: 09/23/19 Encounter Time: 15:47 Subjective: Patient seen and examined for Sepsis. Feeling better. Had some blood with BM. No syncope/lightheadedness. No other complaints. No overnight events - Objective Vital Signs & Weight: Vital Signs (12 hours) Temp Pulse Resp BP BP Pulse Ox 09/23/19 12:00 99 F 89 20 118/54 L 93 L 09/23/19 09:08 89 09/23/19 08:00 99 F 89 18 125/79 92 L 09/23/19 05:00 98.7 F 89 18 117/72 93 L Weight Weight 184 lb 14.4 oz I&O: 09/22/19 09/23/19 09/24/19 06:59 06:59 06:59 Intake Total 1060 820 Output Total 125 300 Balance 935 520 Result Diagrams: 09/19/19 04:25 09/22/19 05:04 Radiology Reviewed by me: Yes (CXR - reviewed) EKG Reviewed by me: Yes (Tele SR) Hospitalist ROS - Review of Systems Constitutional: denies: fever, chills, sweats, weakness, malaise, other Respiratory: reports: SOB with excertion. denies: cough, dry, shortness of breath, hemoptysis, pleuritic pain, sputum, wheezing, other Cardiovascular: denies: chest pain, palpitations, orthopnea, paroxysmal noc. dyspnea, edema, light headedness, other Gastrointestinal: reports: hematochezia. denies: nausea, vomiting, abdominal pain, diarrhea, constipation, melena, other Genitourinary: denies: dysuria, frequency, incontinence, hematuria, retention, other - Medication Medications: Active Medications Generic Name Dose Route Start Last Admin Trade Name Freq PRN Reason Stop Dose Admin Acetaminophen 650 mg 09/18/19 21:11 09/21/19 20:51 Tylenol PO 650 mg Q4H PRN Administration Headache/Fever/Mild Pain (1-3) Allopurinol 100 mg 09/19/19 09:00 09/23/19 09:08 Zyloprim PO 100 mg DAILY SALEEM Administration Amlodipine Besylate 5 mg 09/19/19 09:00 09/23/19 09:08 Norvasc PO 5 mg DAILY SALEEM Administration Benzonatate 100 mg 09/19/19 18:44 09/21/19 17:28 Tessalon PO 100 mg BIDPRN PRN Administration Cough Calcitriol 0.25 mcg 09/19/19 09:00 09/23/19 09:09 Rocaltrol PO 0.25 mcg MoWeFr SALEEM Administration Finasteride 5 mg 09/19/19 21:00 09/22/19 21:36 Proscar PO 5 mg HS SALEEM Administration Tamsulosin HCl 0.4 mg 09/19/19 09:00 09/23/19 09:08 Flomax PO 0.4 mg DAILY SALEEM Administration - Exam General Appearance: NAD Neck: supple, no JVD Heart: RRR, no gallops, no rubs, normal peripheral pulses Respiratory: no wheezes, normal chest expansion, no tachypnea, rhonchi Gastrointestinal: soft, non-tender, non-distended, normal bowel sounds Extremities: no cyanosis, no clubbing, no edema Neurological: no new deficit Psychiatric: normal affect, A&O x 3 Hosp A/P - Plan DVT proph w/lovenox, DVT proph w/SCDs Severe Sepsis due to COVID-19 Pneumonia(POA) Acute hypoxic resp failure due to above ESRD on peritoneal dialysis Hypokalemia Obesity BMI 30.5 HLD Gout BPH PLAN: DC IV Ceftriaxone/Azithromycin Dr Mckenzie recommended to continue monitoring for prob next 1-2 days. Check inflammatory markers on 09/24 Wean O2 MDIs PRN Cont PD Cont other meds as above
--- NOTE | 2019-09-23 18:42 | PRG ---
DATE OF SERVICE: 09/23/2019 SUBJECTIVE: Mr. Swan in general has less cough, less dyspnea, no chest pain. Some hematochezia noted. No abdominal pain. The temperature curve seems to be on a downward trend clearly for the past 3 days. OBJECTIVE: VITAL SIGNS: BP 118/60, pulse 88, respirations 20, O2 saturation 92 on 2 L nasal cannula. His O2 saturations are a little bit lower, but kind of goes up and down. He is not tachycardic. LUNGS: Symmetric air entry. HEART: S1 and S2, regular rate. ABDOMEN: Soft and not distended. NEUROLOGIC: Not changed. LABORATORY DATA: White cell count 8.1, hemoglobin 14, platelets 170. The ferritin is up to 4383. The CRP is down to 17 from 25. D-dimer is down from 1 to 0.79. ASSESSMENT AND DISCUSSION: IgA nephropathy, peritoneal dialysis, COVID-19 pneumonia with severe manifestation, quite a bit of inflammatory activity, ferritin is getting worse, but the other markers are better. O2 saturations are about the same, and we will continue monitoring and repeat markers on Thursday. Job ID: [id number]
[2019-09-23] MEDS: Polyethylene Glycol 3350 17 GM Packet PO SCH (19:32)
[2019-09-23] MEDS: Finasteride 5 MG TAB PO SCH (19:32)
[2019-09-23] MEDS: Benzonatate 100 MG CAP PO PRN (19:48)
[2019-09-23 22:45] LABS: HBSAg Index 0.14 S/CO (0-0.99); Hep B Surf Ag Non-Reactive S/CO (NonReactive)
[2019-09-24] MEDS: Ascorbic Acid 500 mg Chewable Tablet PO SCH (08:00)
[2019-09-24] MEDS: Amlodipine 5 MG TAB PO SCH (08:00)
[2019-09-24] MEDS: Tamsulosin HCl 0.4 MG CAP PO SCH (08:00)
[2019-09-24] MEDS: Allopurinol 100 MG TAB PO SCH (08:00)
--- NOTE | 2019-09-24 11:09 | PRG ---
DATE OF SERVICE: 09/24/2019 SUBJECTIVE: Patient on COVID isolation. OBJECTIVE: GENERAL: Patient on isolation. VITAL SIGNS: Temperature 97, pulse 71, respiratory rate 20, blood pressure 116/67. LABORATORY DATA: Not done today. ASSESSMENT AND PLAN: 1. End-stage renal disease. Continue the patient on dialysis. We will recheck labs in the morning. 2. Edema, controlled. 3. Hypertension. 4. Chronic anemia. 5. Hypokalemia. Recheck labs in the morning. 6. Continue peritoneal dialysis as tolerated. Job ID: [id number]
[2019-09-24] MEDS: Benzonatate 100 MG CAP PO PRN (12:15)
--- NOTE | 2019-09-24 14:29 | PRG ---
DATE OF SERVICE: 09/24/2019 SUBJECTIVE: The patient seems to be doing well. No complaints. OBJECTIVE: VITAL SIGNS: Temperature 97, pulse 96, O2 saturation 94% on 1 L, blood pressure 135/72. HEENT: Clear. NECK: No adenopathy, JVD. LUNGS: Clear. CARDIAC: S1, S2. Regular. ABDOMEN: Soft. ASSESSMENT: COVID-19 pneumonia with good, slow clinical improvement. PLAN: Continue current supportive care. Can discharge home once off oxygen. No further pulmonary recommendations at this time. Please do call if further assistance is needed. Job ID: [id number]
--- NOTE | 2019-09-24 16:30 | PRG ---
DATE OF SERVICE: 09/24/2019 SUBJECTIVE: Feeling better. Less cough. No dyspnea. No anosmia. No abdominal pain or chest pain. Had some diarrhea yesterday, but not today. OBJECTIVE: VITAL SIGNS: T-max 98.5, he certainly has defervesced. O2 saturations are 94 with 1 L nasal cannula. BP 135/72. LUNGS: With bibasilar inspiratory crackles up to a 3rd right and left side. HEART: S1 and S2. Regular rate. ABDOMEN: Soft, not distended or tender. NEUROLOGIC: Nonfocal. LABORATORY DATA: White cell count 8.1, hemoglobin 14, and platelets 170. D-dimer is at 0.79, which is down. The ferritin is up to 4300 and CRP is down to 17.57. ASSESSMENT AND DISCUSSION: 1. IgA nephropathy, on peritoneal dialysis. 2. COVID-19 pneumonia with steady improvement in the O2 sats, decrease in O2 supplementation requirements. Ferritin is going up, but the CRP and D-dimer going down and looks like he is going to make it, maybe a few more days to be able to be discharged. Job ID: [id number]
--- NOTE | 2019-09-24 17:44 | PDOC.HOSPP ---
- Subjective Encounter Date: 09/24/19 Encounter Time: 17:00 Subjective: Patient seen and examined for COVID pneumonia. No new complaints. No overnight events - Objective Vital Signs & Weight: Vital Signs (12 hours) Temp Pulse Resp BP BP Pulse Ox 09/24/19 12:15 97.0 F L 96 22 H 135/72 94 L 09/24/19 08:00 96.7 F L 71 20 116/67 93 L Weight Weight 182 lb 15.739 oz I&O: 09/23/19 09/24/19 09/25/19 06:59 06:59 06:59 Intake Total 820 1630 540 Output Total 300 350 792 Balance 520 1280 -252 Result Diagrams: 09/19/19 04:25 09/22/19 05:04 EKG Reviewed by me: Yes (Tele SR) Hospitalist ROS - Review of Systems Respiratory: denies: cough, dry, shortness of breath, hemoptysis, SOB with excertion, pleuritic pain, sputum, wheezing, other Cardiovascular: denies: chest pain, palpitations, orthopnea, paroxysmal noc. dyspnea, edema, light headedness, other - Medication Medications: Active Medications Generic Name Dose Route Start Last Admin Trade Name Freq PRN Reason Stop Dose Admin Acetaminophen 650 mg 09/18/19 21:11 09/21/19 20:51 Tylenol PO 650 mg Q4H PRN Administration Headache/Fever/Mild Pain (1-3) Allopurinol 100 mg 09/19/19 09:00 09/24/19 08:00 Zyloprim PO 100 mg DAILY SALEEM Administration Amlodipine Besylate 5 mg 09/19/19 09:00 09/24/19 08:00 Norvasc PO 5 mg DAILY SALEEM Administration Ascorbic Acid 1,000 mg 09/24/19 09:00 09/24/19 08:00 Vitamin C PO 1,000 mg DAILY SALEEM Administration Benzonatate 100 mg 09/19/19 18:44 09/24/19 12:15 Tessalon PO 100 mg BIDPRN PRN Administration Cough Calcitriol 0.25 mcg 09/19/19 09:00 09/23/19 09:09 Rocaltrol PO 0.25 mcg MoWeFr SALEEM Administration Finasteride 5 mg 09/19/19 21:00 09/23/19 19:32 Proscar PO 5 mg HS SALEEM Administration Polyethylene Glycol 17 gm 09/23/19 21:00 09/23/19 19:32 Miralax PO 17 gm HS SALEEM Administration Sodium Chloride 10 ml 09/23/19 21:00 09/24/19 08:01 Flush - Normal Saline IVF Not Given Q12HR SALEEM Tamsulosin HCl 0.4 mg 09/19/19 09:00 09/24/19 08:00 Flomax PO 0.4 mg DAILY SALEEM Administration - Exam General - other findings: Pt already assessed by ID earlier Hosp A/P - Plan DVT proph w/SCDs Severe Sepsis due to COVID-19 Pneumonia Acute hypoxic resp failure due to above ESRD on peritoneal dialysis Hypokalemia Obesity BMI 30.5 HLD Gout BPH PLAN: AM labs including inflammatory markers on 09/24 Cont to wean O2 Cont MDIs PRN Cont dialysis Cont other meds as above
[2019-09-24] MEDS ORDERED: Albuterol Sulfate 1.25 MG/3 ML NEB NEB PRN (20:15)
[2019-09-24] MEDS ORDERED: Albuterol 200 PUFF (6.7GM INHALER) INH PRN (21:25)
[2019-09-24] MEDS: Finasteride 5 MG TAB PO SCH (21:43)
[2019-09-24] MEDS: Polyethylene Glycol 3350 17 GM Packet PO SCH (21:43)
[2019-09-25 04:52] LABS: #Eosinphils 0.1 thou/uL (0.0-0.7); #Lymphocytes 0.9 thou/uL (1.20-3.40); #Monocytes 0.8 thou/uL (0.11-0.59); #Neutrophils 6.3 thou/uL (1.40-6.50); %Basophils 0.3 % (0.0-1.0); %Eosinophils 1.5 % (0.0-10.0); %Lymphocytes 11.6 % (21.0-51.0); %Monocytes 9.3 % (0.0-10.0); %Neutrophils 77.4 % (42.0-75.0); Hemoglobin 11.9 g/dL (14.0-18.0); Mean Corpuscular HGB CONC 30.4 g/dL (32.0-36.0); Mean Corpuscular Hemoglobin 29.1 pg (27.0-31.0); Mean Corpuscular Volume 95.8 fL (78.0-98.0); Mean Platelet Volume 6.8 fL (7.4-10.4); Platelet Count 455 thou/uL (130-400); RBC Distribution Width 12.1 % (11.5-14.5); White Blood Cell (WBC) Count 8.1 thou/uL (4.8-10.8)
[2019-09-25 05:14] LABS: ALT (SGPT) 123 U/L (8-55); AST (SGOT) 139 U/L (5-34); Alkaline Phosphatase 303 U/L (40-110); Anion Gap 17 mmol/L (10-20); BUN (Urea Nitrogen) 56 mg/dL (8.4-25.7); Bilirubin, Total 0.5 mg/dL (0.2-1.2); CRP (Inflammatory) 9.95 mg/dL (= or < 0.5); Calc. Creatinine Clearance 19 mL/min (70-130); Calcium 8.3 mg/dL (7.8-10.44); Carbon Dioxide 22 mmol/L (22-29); Chloride 101 mmol/L (98-107); Estimated GFR-MDRD 12; Globulin 3.4 g/dL (2.4-3.5); Glucose 123 mg/dL (70-105); Potassium 3.4 mmol/L (3.5-5.1); Protein, Total 6.4 g/dL (6.0-8.3); Sodium 137 mmol/L (136-145)
[2019-09-25] MEDS: Allopurinol 100 MG TAB PO SCH (07:54)
[2019-09-25] MEDS: Ascorbic Acid 500 mg Chewable Tablet PO SCH (07:54)
[2019-09-25] MEDS: Amlodipine 5 MG TAB PO SCH (07:54)
[2019-09-25] MEDS: Tamsulosin HCl 0.4 MG CAP PO SCH (07:54)
[2019-09-25] MEDS: Acetaminophen 325 MG TAB PO PRN ×2 (12:46→20:56)
[2019-09-25] MEDS: Benzonatate 100 MG CAP PO PRN ×2 (13:01→20:56)
--- NOTE | 2019-09-25 13:28 | PRG ---
DATE OF SERVICE: 09/25/2019 SUBJECTIVE: The patient in COVID isolation. OBJECTIVE: VITAL SIGNS: Temperature 98.3, pulse 84, respiratory rate 20, and blood pressure 129/71. LABORATORY DATA: Potassium 3.4, BUN is 56, and creatinine is 5.05. ASSESSMENT AND PLAN: 1. End-stage renal disease. Continue peritoneal dialysis. 2. Hypokalemia, stable. 3. History of hypertension, stable. 4. Edema, controlled. 5. Anemia, stable. Continue peritoneal dialysis as tolerated. Job ID: [id number]
--- NOTE | 2019-09-25 14:39 | PDOC.HOSPP ---
- Subjective Encounter Date: 09/25/19 Subjective: patient seen on f/u for covid pneumonia and respiratory failure, pt refers continues w cough and some sob, but improving, did refer an episode during the night if sob where his 02 had to be increased, and this morning his rr was on the 30s. patient denies fever chills or malaise - Objective Vital Signs & Weight: Vital Signs (12 hours) Temp Pulse Resp BP BP BP Pulse Ox 09/25/19 12:45 97.2 F L 68 20 115/65 95 09/25/19 08:05 98.3 F 84 22 H 129/71 94 L 09/25/19 04:35 98.2 F 80 30 H 107/59 L 96 09/25/19 04:08 94 L Weight Weight 184 lb 3.2 oz I&O: 09/24/19 09/25/19 09/26/19 06:59 06:59 06:59 Intake Total 1630 780 Output Total 350 1292 Balance 1280 -512 Result Diagrams: 09/25/19 04:44 09/25/19 04:44 Hospitalist ROS - Review of Systems All other systems reviewed; all pertinent +/- noted in HPI/Subj - Medication Medications: Active Medications Generic Name Dose Route Start Last Admin Trade Name Freq PRN Reason Stop Dose Admin Acetaminophen 650 mg 09/18/19 21:11 09/25/19 12:46 Tylenol PO 650 mg Q4H PRN Administration Headache/Fever/Mild Pain (1-3) Albuterol Sulfate 1 puff 09/24/19 21:25 09/24/19 21:43 Proventil Hfa INH 1 puff Q8H PRN Administration Wheezing Allopurinol 100 mg 09/19/19 09:00 09/25/19 07:54 Zyloprim PO 100 mg DAILY SALEEM Administration Amlodipine Besylate 5 mg 09/19/19 09:00 09/25/19 07:54 Norvasc PO 5 mg DAILY SALEEM Administration Ascorbic Acid 1,000 mg 09/24/19 09:00 09/25/19 07:54 Vitamin C PO 1,000 mg DAILY SALEEM Administration Benzonatate 100 mg 09/19/19 18:44 09/25/19 13:01 Tessalon PO 100 mg BIDPRN PRN Administration Cough Calcitriol 0.25 mcg 09/19/19 09:00 09/23/19 09:09 Rocaltrol PO 0.25 mcg MoWeFr SALEEM Administration Finasteride 5 mg 09/19/19 21:00 09/24/19 21:43 Proscar PO 5 mg HS SALEEM Administration Polyethylene Glycol 17 gm 09/23/19 21:00 09/24/19 21:43 Miralax PO 17 gm HS SALEEM Administration Sodium Chloride 10 ml 09/23/19 21:00 09/25/19 07:24 Flush - Normal Saline IVF Not Given Q12HR SALEEM Tamsulosin HCl 0.4 mg 09/19/19 09:00 09/25/19 07:54 Flomax PO 0.4 mg DAILY SALEEM Administration - Exam General Appearance: awake alert Eye: PERRL, anicteric sclera ENT: normocephalic atraumatic, no oropharyngeal lesions, moist mucosa Neck: supple, symmetric, no JVD, no thyromegaly Heart: RRR, no murmur, no gallops Respiratory: CTAB, no wheezes, no rales, no ronchi Gastrointestinal: soft, non-tender, non-distended Extremities: no cyanosis, no clubbing Skin: normal turgor, no lesions Neurological: cranial nerve grossly intact, normal sensation to touch, no weakness Musculoskeletal: normal tone, normal strength, no muscle wasting Psychiatric: normal affect, normal behavior, A&O x 3, oriented to person Hosp A/P - Plan severe sepsis deu to covid pneumonia acute resp failure, hypoxic esrd on p/d hld gout bph plan: continue symptomatic tx for pain fever cough and sob wean 02 as tolerated, still requires 02 supplementation. rr 30, 92% on 4L continue p/d continue home meds for chronic conditions
[2019-09-25] MEDS: Finasteride 5 MG TAB PO SCH (20:43)
[2019-09-25] MEDS: Polyethylene Glycol 3350 17 GM Packet PO SCH (20:43)
[2019-09-26] MEDS: Acetaminophen 325 MG TAB PO PRN ×2 (05:30→09:27)
[2019-09-26] MEDS: Amlodipine 5 MG TAB PO SCH ×2 (07:30→09:27)
[2019-09-26] MEDS: Ascorbic Acid 500 mg Chewable Tablet PO SCH (08:00)
[2019-09-26] MEDS: Allopurinol 100 MG TAB PO SCH (08:00)
[2019-09-26] MEDS: Calcitriol 0.25 MCG CAP PO SCH (08:00)
[2019-09-26] MEDS: Tamsulosin HCl 0.4 MG CAP PO SCH (08:00)
[2019-09-26] MEDS: Benzonatate 100 MG CAP PO PRN ×2 (09:27→20:06)
--- NOTE | 2019-09-26 12:14 | PRG ---
DATE OF SERVICE: 09/26/2019 SUBJECTIVE: A 54-year-old gentleman, being seen for end-stage renal disease. The patient denies any nausea, vomiting, or chest pain. OBJECTIVE: General: The patient is awake and alert. Vital Signs: Afebrile, pulse 85, breathing 16, and blood pressure 106/68. HEENT: Head normocephalic and atraumatic. Eyes intact, no ulcers. Nose intact, no ulcers. Ears intact, no ulcers. Neck: Supple. No JVD. Chest: Symmetrical and clear. Cardiovascular: Shows S1 and S2, no rub, no murmur. Gastrointestinal: Abdomen is soft, bowel sounds positive. Extremities: Show no edema or ulcers. Skin: Shows no rash or petechiae. Musculoskeletal: Shows no joint swelling or stiffness. Genitourinary: Shows no Lai or CVA tenderness. Neurologic: Motor intact. Cranial nerves intact. LABORATORY DATA: Reviewed. ASSESSMENT AND PLAN: 1. Stage 6 chronic kidney disease, stable. 2. Hypertension, stable. 3. Anemia, stable. Medications based on GFR appropriate. Job ID: [id number]
--- NOTE | 2019-09-26 14:28 | ULT ---
VENOUS DOPPLER ULTRASOUND OF THE RIGHT LOWER EXTREMITY: Date: 09/26/2019 HISTORY: Right lower extremity pain. TECHNIQUE: Corbin scale ultrasound with color flow and spectral Doppler imaging of the deep venous system of the r ight lower extremity was performed. FINDINGS: There is good flow, compression, and augmentation noted in the right common femoral, femoral, deep fe moral, popliteal, posterior tibial, and greater saphenous veins. ] IMPRESSION: No evidence of deep venous thrombosis in the right lower extremity. POS: [facility]
--- NOTE | 2019-09-26 15:10 | PRG ---
DATE OF SERVICE: 09/26/2019 SUBJECTIVE: Mr. Swan is feeling better. OBJECTIVE: VITAL SIGNS: Essentially normal. He is on room air and saturating at 97%. GENERAL: Awake, alert, and oriented. LUNGS: Clear. HEART: S1 and S2, regular rate. ABDOMEN: Soft, not distended, moves extremities equally. LABORATORY DATA: White cell count 8.1, hemoglobin 11.9. Sodium 137, creatinine is 5.05. Ferritin 4035. Transaminases went up to 139 and 123 and alkaline phosphatase 303. Bilirubin is normal. Albumin is 3.0. D-dimer is little bit higher at 1.08. He did have a vascular ultrasound. The patient actually was complaining of pain in the right foot. I think what he has is gout. We will check his uric acid and start him on colchicine. ASSESSMENT AND DISCUSSION: COVID-19 pneumonia, IgA nephropathy with peritoneal dialysis. There is obvious improvement in clinical course. We are going to be careful because some patients with COVID. We will have him with temporary improvement and then deteriorate with inflammatory process, so we will keep monitoring him for a few more days and hopefully send him home soon. Job ID: [id number]
[2019-09-26] MEDS ORDERED: Colchicine 0.6 MG TAB PO SCH (15:30)
--- NOTE | 2019-09-26 17:37 | PDOC.HOSPP ---
- Subjective Encounter Date: 09/26/19 Encounter Time: 16:00 Subjective: Patient seen and examined for COVID Pneumonia. No new complaints. No overnight events - Objective Vital Signs & Weight: Vital Signs (12 hours) Temp Pulse Resp BP Pulse Ox 09/26/19 15:47 98.1 F 91 18 123/70 99 09/26/19 11:53 97.8 F 87 20 123/68 97 09/26/19 07:45 98.5 F 83 18 106/68 96 Weight Weight 184 lb 8.43 oz I&O: 09/25/19 09/26/19 09/27/19 06:59 06:59 06:59 Intake Total 780 750 Output Total 1292 450 Balance -512 300 Result Diagrams: 09/25/19 04:44 09/25/19 04:44 EKG Reviewed by me: Yes (Tele SR) Hospitalist ROS - Review of Systems Cardiovascular: denies: chest pain, palpitations, orthopnea, paroxysmal noc. dyspnea, edema, light headedness, other - Medication Medications: Active Medications Generic Name Dose Route Start Last Admin Trade Name Freq PRN Reason Stop Dose Admin Acetaminophen 650 mg 09/18/19 21:11 09/26/19 09:27 Tylenol PO 650 mg Q4H PRN Administration Headache/Fever/Mild Pain (1-3) Albuterol Sulfate 1 puff 09/24/19 21:25 09/24/19 21:43 Proventil Hfa INH 1 puff Q8H PRN Administration Wheezing Allopurinol 100 mg 09/19/19 09:00 09/26/19 08:00 Zyloprim PO 100 mg DAILY SALEEM Administration Amlodipine Besylate 5 mg 09/19/19 09:00 09/26/19 09:27 Norvasc PO Not Given DAILY SALEEM Ascorbic Acid 1,000 mg 09/24/19 09:00 09/26/19 08:00 Vitamin C PO 1,000 mg DAILY SALEEM Administration Benzonatate 100 mg 09/19/19 18:44 09/26/19 09:27 Tessalon PO 100 mg BIDPRN PRN Administration Cough Calcitriol 0.25 mcg 09/19/19 09:00 09/26/19 08:00 Rocaltrol PO 0.25 mcg MoWeFr SALEEM Administration Finasteride 5 mg 09/19/19 21:00 09/25/19 20:43 Proscar PO 5 mg HS SALEEM Administration Polyethylene Glycol 17 gm 09/23/19 21:00 09/25/19 20:43 Miralax PO 17 gm HS SALEEM Administration Sodium Chloride 10 ml 09/23/19 21:00 09/26/19 07:31 Flush - Normal Saline IVF Not Given Q12HR SALEEM Tamsulosin HCl 0.4 mg 09/19/19 09:00 09/26/19 08:00 Flomax PO 0.4 mg DAILY SALEEM Administration Hosp A/P - Plan DVT proph w/heparin, DVT proph w/SCDs Severe Sepsis due to COVID-19 Pneumonia Acute hypoxic resp failure due to above ESRD on peritoneal dialysis Hypokalemia Obesity BMI 30.5 HLD Gout BPH PLAN: Check AM labs including inflammatory markers on 09/24 Cont Peritoneal dialysis per Nephrology Cont MDIs PRN Cont other meds as above
[2019-09-26] MEDS: Finasteride 5 MG TAB PO SCH (19:56)
[2019-09-26] MEDS: Polyethylene Glycol 3350 17 GM Packet PO SCH (19:56)
[2019-09-26] MEDS: Heparin 5,000 UNITS/ML VIAL SC SCH (19:57)
[2019-09-26] MEDS ORDERED: Colchicine 0.3 MG TAB PO SCH (21:00)
[2019-09-27 04:09] VITALS: BMI 31.1
[2019-09-27 04:48] LABS: #Basophils 0.1 thou/uL (0.0-0.2); #Eosinphils 0.4 thou/uL (0.0-0.7); #Lymphocytes 1.1 thou/uL (1.20-3.40); #Monocytes 0.9 thou/uL (0.11-0.59); #Neutrophils 6.4 thou/uL (1.40-6.50); %Basophils 0.9 % (0.0-1.0); %Eosinophils 4.1 % (0.0-10.0); %Lymphocytes 12.2 % (21.0-51.0); %Monocytes 10.2 % (0.0-10.0); %Neutrophils 72.7 % (42.0-75.0); Hemoglobin 12.4 g/dL (14.0-18.0); Mean Corpuscular HGB CONC 31.3 g/dL (32.0-36.0); Mean Corpuscular Hemoglobin 29.2 pg (27.0-31.0); Mean Corpuscular Volume 93.4 fL (78.0-98.0); Mean Platelet Volume 6.5 fL (7.4-10.4); Platelet Count 629 thou/uL (130-400); RBC Distribution Width 12.2 % (11.5-14.5); Red Blood Cell (RBC) Count 4.23 mill/uL (4.70-6.10); White Blood Cell (WBC) Count 8.9 thou/uL (4.8-10.8)
[2019-09-27 05:11] LABS: ALT (SGPT) 116 U/L (8-55); AST (SGOT) 54 U/L (5-34); Alkaline Phosphatase 304 U/L (40-110); Anion Gap 17 mmol/L (10-20); BUN (Urea Nitrogen) 62 mg/dL (8.4-25.7); Bilirubin, Total 0.3 mg/dL (0.2-1.2); CRP (Inflammatory) 9.62 mg/dL (= or < 0.5); Calc. Creatinine Clearance 19 mL/min (70-130); Calcium 8.4 mg/dL (7.8-10.44); Carbon Dioxide 24 mmol/L (22-29); Chloride 100 mmol/L (98-107); Estimated GFR-MDRD 12; Globulin 3.6 g/dL (2.4-3.5); Glucose 129 mg/dL (70-105); Potassium 3.3 mmol/L (3.5-5.1); Protein, Total 6.6 g/dL (6.0-8.3); Sodium 138 mmol/L (136-145)
[2019-09-27] MEDS ORDERED: Potassium Chloride 20 MEQ TAB PO SCH (07:30)
[2019-09-27] MEDS: Amlodipine 5 MG TAB PO SCH (07:53)
[2019-09-27] MEDS: Allopurinol 100 MG TAB PO SCH (07:54)
[2019-09-27] MEDS: Tamsulosin HCl 0.4 MG CAP PO SCH (07:54)
[2019-09-27] MEDS: Heparin 5,000 UNITS/ML VIAL SC SCH (07:54)
[2019-09-27] MEDS: Ascorbic Acid 500 mg Chewable Tablet PO SCH (07:54)
[2019-09-27 09:07] VITALS: TEMP 98
--- NOTE | 2019-09-27 11:04 | PRG ---
DATE OF SERVICE: 09/27/2019 SUBJECTIVE: A 54-year-old gentleman, being seen for end-stage renal disease. The patient denied nausea, vomiting, or chest pain. PHYSICAL EXAMINATION: General: The patient is awake and alert. Vital Signs: Afebrile, pulse 75, breathing at 16, blood pressure 115/70. HEENT: Head normocephalic and atraumatic. Eyes intact, no ulcers. Nose intact, no ulcers. Ears intact, no ulcers. Neck: Supple. No JVD. Chest: Symmetrical and clear. Cardiovascular: Shows S1 and S2, no rub, no murmur. Gastrointestinal: Abdomen is soft, bowel sounds positive. Extremities: Show no edema or ulcers. Skin: Shows no rash or petechiae. Musculoskeletal: Shows no joint swelling or stiffness. Genitourinary: Shows no Lai or CVA tenderness. Neurologic: Motor intact. Cranial nerves intact. LABORATORY DATA: Reviewed. ASSESSMENT AND PLAN: 1. Stage 6 chronic kidney disease, stable. 2. Hypertension, stable. 3. Anemia, stable. Medication based on GFR appropriate. Job ID: [id number]
--- NOTE | 2019-09-27 16:33 | DIS ---
DATE OF ADMISSION: 09/20/2019 DATE OF DISCHARGE: 09/27/2019 DISCHARGE DISPOSITION: Home. FOLLOWUP: 1. Follow up with primary care physician, Shania Li MD in 1 week. 2. Follow up with Dr. Mckenzie in 2 weeks. 3. Follow up with Dr. Mclaughlin as needed. ALLERGIES: NO KNOWN DRUG ALLERGIES. DISCHARGE MEDICATIONS: Same as admission medication. On the day of discharge, the patient symptomatically feels much better. His vital signs showed temperature 98, pulse rate of 95, respirations of 19, blood pressure of 124/73, and O2 saturation 93% on room air. SIGNIFICANT LABORATORY DATA: WBC 8.1 with 8.6% neutrophil. D-dimer at discharge is 1.54. CRP at discharge is 9.62 and on admission, it was 25. Ferritin at discharge is 2711, maximum ferritin was 4383. Strep pneumoniae and Legionella urinary antigen was negative. Blood cultures negative. Respiratory viral panel was negative. COVID testing was negative on August,. INPATIENT CONSULTATIONS: 1. Infectious Disease, Dr. Mckenzie. 2. Pulmonary, Dr. Mclaughlin. 3. Nephrology, Dr. Zuniga. BRIEF HOSPITAL COURSE: The patient is a 54-year-old male with end-stage renal disease, on dialysis, presented to the emergency room with fever. He was recently diagnosed with COVID infection. His workup was consistent with acute respiratory failure with sepsis. He was admitted to the COVID unit. He was started on Rocephin with azithromycin. Influenza screen was negative. He was placed on COVID isolation. Symptomatically, he has shown good improvement. He has been cleared by consultants for discharge. FINAL DIAGNOSES: 1. Severe sepsis secondary to COVID-19 pneumonia. 2. Acute hypoxic respiratory failure secondary to above. 3. End-stage renal disease, on peritoneal dialysis. 4. Hypokalemia, replaced. 5. Obesity with a BMI of 30.5. 6. Hyperlipidemia. 7. Gout with mild gout flare, resolved with colchicine. 8. Benign prostatic hypertrophy. 9. Elevated inflammatory markers secondary to #1. 10. Anemia, probably secondary to end-stage renal disease. The patient understands the above plan of care. Job ID: [id number]
[2019-09-27 16:46] VITALS: BP 156/83
--- NOTE | 2019-10-01 15:02 | EKG ---
Test Reason : WEAKNESS Blood Pressure : / mmHG Vent. Rate : 114 BPM Atrial Rate : 114 BPM P-R Int : 142 ms QRS Dur : 084 ms QT Int : 320 ms P-R-T Axes : 022 035 026 degrees QTc Int : 441 ms Sinus tachycardia Possible Inferior infarct , age undetermined Abnormal ECG Confirmed by MARCELINA CRANDALL, SNEHA ([id number]), international editorial producer HEATHER CINTRON ([id number]) on 10/01/2019 3:02:28 PM Referred By: [facility] Confirmed By:SNEHA HEWITT MD
== END 2019-09-27 18:20 | disposition home or self-care (01) | DRG 871 ==
LOC: ERS 17:39 → 2SW 22:23 → OBSVTOIN 09-20 11:44
PROVIDERS: ADMIT Hospitalist; ATTEND Hospitalist
PROC: 8E0ZXY6 Isolation (ICD-10-PCS; principal; 2019-09-20)
PROC: 3E1M39Z Irrigation of Peritoneal Cavity using Dialysate, Percutaneous Approach (ICD-10-PCS; 2019-09-26)
DX: A41.89 Other specified sepsis (principal); U07.1 COVID-19; J12.89 Other viral pneumonia; J96.01 Acute respiratory failure with hypoxia; N18.6 End stage renal disease; I12.0 Hypertensive chronic kidney disease with stage 5 chronic kidney disease or end stage renal disease; N40.0 Benign prostatic hyperplasia without lower urinary tract symptoms; E66.9 Obesity, unspecified; D63.1 Anemia in chronic kidney disease; M10.9 Gout, unspecified; R65.20 Severe sepsis without septic shock; E78.5 Hyperlipidemia, unspecified; E87.70 Fluid overload, unspecified; Z79.899 Other long term (current) drug therapy; Z68.30 Body mass index [BMI] 30.0-30.9, adult; Z99.2 Dependence on renal dialysis
CPT/HCPCS: 36415; 36600; 71045; 80048; 80053; 81003; 81015; 82728; 83605; 85025; 85379; 86140; 87040; 87086; 87340; 87449; 87633; 87798; 87804; 87899; 90471; 90670; 90945; 93005; 94760; 96361; 96365; 96367; G0009; G0257; J0456; J0696; J1644; J3490; J7050

== ENCOUNTER 2019-10-17 09:27 | Outpatient (CLI) | payer MEDICARE ==
--- NOTE | 2019-10-17 09:56 | RAD ---
EXAM: Chest 2 views: HISTORY: Cough for 2 months COMPARISON: 11/10/2018, 09/18/2019 FINDINGS: There is a normal-sized cardiomediastinal silhouette. Bilateral perihilar opacities are seen. There are also peripheral airspace opacities in the lungs which are new compared to the prior exam There is no evidence of consolidation, mass, or pleural effusion. The bones are unremarkable. IMPRESSION: Multifocal infiltrates
== END 2019-10-17 09:28 | disposition home or self-care (01) ==
LOC: BICRAD 09:27
PROVIDERS: ATTEND Family Medicine
DX: J12.89 Other viral pneumonia (principal); R91.8 Other nonspecific abnormal finding of lung field
CPT/HCPCS: 71046

== ENCOUNTER 2019-10-19 13:12 | Emergency (ER) | payer MEDICARE, OTHER ==
--- NOTE | 2019-10-19 13:59 | RAD ---
EXAM: Single view of the chest HISTORY: Covid positive pneumonia COMPARISON: 09/18/2019 and 10/17/2019 FINDINGS: Single view of the chest shows a normal sized cardiomediastinal silhouette. There is stable multifocal scattered infiltrates. The bones are unremarkable. IMPRESSION: Scattered multifocal infiltrates
[2019-10-19 14:26] LABS: #Eosinphils 0.3 thou/uL (0.0-0.7); #Lymphocytes 1.4 thou/uL (1.20-3.40); #Monocytes 0.7 thou/uL (0.11-0.59); #Neutrophils 5.7 thou/uL (1.40-6.50); %Basophils 0.2 % (0.0-1.0); %Eosinophils 3.8 % (0.0-10.0); %Lymphocytes 16.8 % (21.0-51.0); %Monocytes 8.8 % (0.0-10.0); %Neutrophils 70.5 % (42.0-75.0); Hemoglobin 13.1 g/dL (14.0-18.0); Mean Corpuscular HGB CONC 33.8 g/dL (32.0-36.0); Mean Corpuscular Hemoglobin 31.4 pg (27.0-31.0); Mean Corpuscular Volume 92.7 fL (78.0-98.0); Mean Platelet Volume 7.1 fL (7.4-10.4); Platelet Count 318 thou/uL (130-400); RBC Distribution Width 12.9 % (11.5-14.5); Red Blood Cell (RBC) Count 4.18 mill/uL (4.70-6.10); White Blood Cell (WBC) Count 8.1 thou/uL (4.8-10.8)
[2019-10-19 14:48] LABS: ALT (SGPT) 15 U/L (8-55); AST (SGOT) 10 U/L (5-34); Albumin 3.3 g/dL (3.5-5.0); Alkaline Phosphatase 95 U/L (40-110); Anion Gap 13 mmol/L (10-20); BUN (Urea Nitrogen) 36 mg/dL (8.4-25.7); Bilirubin, Total 0.2 mg/dL (0.2-1.2); Calc. Creatinine Clearance 0 mL/min (70-130); Calcium 8.6 mg/dL (7.8-10.44); Carbon Dioxide 25 mmol/L (22-29); Chloride 107 mmol/L (98-107); Estimated GFR-MDRD 12; Glucose 114 mg/dL (70-105); Potassium 3.7 mmol/L (3.5-5.1); Protein, Total 6.3 g/dL (6.0-8.3); Sodium 141 mmol/L (136-145)
== END 2019-10-19 15:37 | disposition home or self-care (01) ==
LOC: ERS 13:12
DX: U07.1 COVID-19 (principal); R91.8 Other nonspecific abnormal finding of lung field; I12.0 Hypertensive chronic kidney disease with stage 5 chronic kidney disease or end stage renal disease; N18.6 End stage renal disease; E78.5 Hyperlipidemia, unspecified; E78.00 Pure hypercholesterolemia, unspecified; F41.9 Anxiety disorder, unspecified; F32.9 Major depressive disorder, single episode, unspecified
CPT/HCPCS: 36415; 71045; 80053; 83605; 85025; 87040

== ENCOUNTER 2020-12-27 16:15 | Observation (INO) | payer MEDICARE ==
[2020-12-27 17:25] LABS: #Eosinphils 0.1 thou/uL (0.0-0.7); #Lymphocytes 0.4 thou/uL (1.20-3.40); #Monocytes 0.4 thou/uL (0.11-0.59); #Neutrophils 6.5 thou/uL (1.40-6.50); %Eosinophils 0.7 % (0.0-10.0); %Lymphocytes 5.9 % (21.0-51.0); %Monocytes 5.7 % (0.0-10.0); %Neutrophils 87.8 % (42.0-75.0); Hemoglobin 11.9 g/dL (14.0-18.0); Mean Corpuscular HGB CONC 34.8 g/dL (32.0-36.0); Mean Corpuscular Hemoglobin 31.8 pg (27.0-31.0); Mean Corpuscular Volume 91.2 fL (78.0-98.0); Mean Platelet Volume 7.3 fL (7.4-10.4); Platelet Count 206 thou/uL (130-400); RBC Distribution Width 12.7 % (11.5-14.5); Red Blood Cell (RBC) Count 3.74 mill/uL (4.70-6.10); White Blood Cell (WBC) Count 7.4 thou/uL (4.8-10.8)
[2020-12-27 17:56] LABS: ALT (SGPT) 15 U/L (8-55); AST (SGOT) 10 U/L (5-34); Albumin 4.1 g/dL (3.5-5.0); Alkaline Phosphatase 111 U/L (40-110); Anion Gap 10 mmol/L (10-20); BUN (Urea Nitrogen) 22 mg/dL (8.4-25.7); Bilirubin, Total 0.2 mg/dL (0.2-1.2); Calc. Creatinine Clearance 0 mL/min (70-130); Calcium 9.3 mg/dL (7.8-10.44); Carbon Dioxide 24 mmol/L (22-29); Chloride 108 mmol/L (98-107); Globulin 2.5 g/dL (2.4-3.5); Glucose 180 mg/dL (70-105); Lipase 22 U/L (8-78); Potassium 4.1 mmol/L (3.5-5.1); Protein, Total 6.6 g/dL (6.0-8.3); Sodium 138 mmol/L (136-145)
[2020-12-27] MEDS ORDERED: Aspirin Chewable 81 MG TAB ONE (20:11)
[2020-12-27] MEDS ORDERED: Nitroglycerin 0.4 MG TAB 1 EACH ONE (20:11)
[2020-12-27] MEDS ORDERED: Ondansetron PF 4 MG/2 ML Vial IVP PRN (21:26)
[2020-12-27] MEDS ORDERED: Senokot S 8.6-50 MG TAB PO PRN (21:26)
[2020-12-27] MEDS ORDERED: Acetaminophen 325 MG TAB PO PRN (21:26)
[2020-12-27 21:53] LABS: Troponin I Less than 0.010 ng/mL (< 0.028)
[2020-12-27] MEDS ORDERED: Sodium Chloride 0.9% 1,000 ML IV SCH (22:45)
[2020-12-27] MEDS ORDERED: hydrALAZINE 20 MG/ML VIAL SLOW IVP PRN (23:00)
[2020-12-27 23:28] VITALS: BMI 31.1
[2020-12-27 23:40] LABS: Cardiac Risk 5.5 (Less than 4.5)
[2020-12-27] MEDS ORDERED: Polyethylene Glycol 3350 17 GM Packet PO PRN (23:59)
[2020-12-28 01:45] LABS: Troponin I Less than 0.010 ng/mL (< 0.028)
[2020-12-28 03:52] LABS: #Basophils 0.1 thou/uL (0.0-0.2); #Eosinphils 0.1 thou/uL (0.0-0.7); #Lymphocytes 0.5 thou/uL (1.20-3.40); #Monocytes 0.5 thou/uL (0.11-0.59); #Neutrophils 5.7 thou/uL (1.40-6.50); %Basophils 1.3 % (0.0-1.0); %Eosinophils 0.9 % (0.0-10.0); %Lymphocytes 7.3 % (21.0-51.0); %Neutrophils 83.4 % (42.0-75.0); Hemoglobin 11.1 g/dL (14.0-18.0); Mean Corpuscular HGB CONC 35.4 g/dL (32.0-36.0); Mean Corpuscular Hemoglobin 32.4 pg (27.0-31.0); Mean Corpuscular Volume 91.4 fL (78.0-98.0); Mean Platelet Volume 7.6 fL (7.4-10.4); Platelet Count 194 thou/uL (130-400); RBC Distribution Width 12.9 % (11.5-14.5); Red Blood Cell (RBC) Count 3.44 mill/uL (4.70-6.10); White Blood Cell (WBC) Count 6.8 thou/uL (4.8-10.8)
[2020-12-28 03:55] LABS: Hemoglobin A1c 6.4 % (4.0-6.0)
[2020-12-28 04:27] LABS: ALT (SGPT) 14 U/L (8-55); AST (SGOT) 10 U/L (5-34); Albumin 3.5 g/dL (3.5-5.0); Alkaline Phosphatase 90 U/L (40-110); Anion Gap 6 mmol/L (10-20); BUN (Urea Nitrogen) 21 mg/dL (8.4-25.7); Bilirubin, Total 0.4 mg/dL (0.2-1.2); Calc. Creatinine Clearance 77 mL/min (70-130); Carbon Dioxide 25 mmol/L (22-29); Chloride 111 mmol/L (98-107); Globulin 2.2 g/dL (2.4-3.5); Glucose 105 mg/dL (70-105); Protein, Total 5.7 g/dL (6.0-8.3); Sodium 138 mmol/L (136-145)
[2020-12-28 07:36] LABS: SARS-CoV-2 PCR by NAA Not Detected (NotDetected)
[2020-12-28] MEDS ORDERED: ADENOSINE 60 MG/20 ML VIAL ONE (08:50)
[2020-12-28] MEDS ORDERED: Tacrolimus 0.5 MG CAP PO SCH (09:00)
[2020-12-28] MEDS ORDERED: Tamsulosin HCl 0.4 MG CAP PO SCH (09:00)
[2020-12-28] MEDS: Heparin 5,000 UNITS/ML VIAL SC SCH ×2 (14:08→15:04)
[2020-12-28] MEDS ORDERED: hydrALAZINE 25 MG TAB PO SCH (15:00)
[2020-12-28] MEDS ORDERED: Mycophenolate ER 180 MG TAB PO SCH (16:30)
[2020-12-28 17:35] VITALS: BP 160/85; TEMP 97.6
== END 2020-12-28 18:53 | disposition home or self-care (01) ==
LOC: ERS 16:15 → 2NO 20:55
PROVIDERS: ADMIT Student in an Organized Health Care Education/Training Program; ATTEND Hospitalist
DX: I20.9 Angina pectoris, unspecified (principal); I12.0 Hypertensive chronic kidney disease with stage 5 chronic kidney disease or end stage renal disease; N18.6 End stage renal disease; N17.9 Acute kidney failure, unspecified; D63.1 Anemia in chronic kidney disease; E78.5 Hyperlipidemia, unspecified; E78.00 Pure hypercholesterolemia, unspecified; R73.9 Hyperglycemia, unspecified; E66.9 Obesity, unspecified; Z68.31 Body mass index [BMI] 31.0-31.9, adult; Z79.52 Long term (current) use of systemic steroids; Z79.82 Long term (current) use of aspirin; Z79.899 Other long term (current) drug therapy; Z94.0 Kidney transplant status; Z99.2 Dependence on renal dialysis; Z20.822 Contact with and (suspected) exposure to COVID-19
CPT/HCPCS: 71045; 78452; 80053 ×2; 80061; 82962; 83036; 83690; 84484 ×3; 85025 ×2; 93005; 93017; 99285; A9500; U0003; U0005; 36415; 36416; 96372; G0378; J0153; J1644; J7050; J7507; J7518; J8499

== ENCOUNTER 2021-02-03 00:19 | Inpatient (IN) | payer MEDICARE ==
[2021-02-03 01:38] LABS: ALT (SGPT) 20 U/L (8-55); AST (SGOT) 13 U/L (5-34); Albumin 4.1 g/dL (3.5-5.0); Alkaline Phosphatase 96 U/L (40-110); Anion Gap 11 mmol/L (10-20); BUN (Urea Nitrogen) 24 mg/dL (8.4-25.7); Bilirubin, Total 0.4 mg/dL (0.2-1.2); Calc. Creatinine Clearance 0 mL/min (70-130); Calcium 9.2 mg/dL (7.8-10.44); Carbon Dioxide 24 mmol/L (22-29); Chloride 109 mmol/L (98-107); Globulin 2.7 g/dL (2.4-3.5); Glucose 147 mg/dL (70-105); Lipase 21 U/L (8-78); Potassium 4.2 mmol/L (3.5-5.1); Protein, Total 6.8 g/dL (6.0-8.3); Sodium 140 mmol/L (136-145)
[2021-02-03 01:42] LABS: #Eosinphils 0.3 thou/uL (0.0-0.7); #Lymphocytes 1.1 thou/uL (1.20-3.40); #Monocytes 0.9 thou/uL (0.11-0.59); %Basophils 0.3 % (0.0-1.0); %Eosinophils 3.8 % (0.0-10.0); %Lymphocytes 13.2 % (21.0-51.0); %Monocytes 11.2 % (0.0-10.0); %Neutrophils 71.6 % (42.0-75.0); Hemoglobin 12.7 g/dL (14.0-18.0); Mean Corpuscular HGB CONC 34.2 g/dL (32.0-36.0); Mean Corpuscular Hemoglobin 32.1 pg (27.0-31.0); Mean Corpuscular Volume 93.9 fL (78.0-98.0); Mean Platelet Volume 7.3 fL (7.4-10.4); Platelet Count 284 thou/uL (130-400); RBC Distribution Width 13.5 % (11.5-14.5); Red Blood Cell (RBC) Count 3.94 mill/uL (4.70-6.10); White Blood Cell (WBC) Count 8.4 thou/uL (4.8-10.8)
[2021-02-03] MEDS ORDERED: Ondansetron PF 4 MG/2 ML Vial ONE (01:42)
[2021-02-03] MEDS ORDERED: Morphine 4 MG/ML VIAL ONE ×2 (01:42→05:34)
[2021-02-03] MEDS ORDERED: Cefepime 2 GM VIAL ONE (05:34)
[2021-02-03 06:09] LABS: Bilirubin Negative (Negative); Blood, Urine Negative (Negative); Clarity Clear (Clear); Glucose, Urine (Dipstick) 70 mg/dL (Negative); Ketone, Urine Negative (Negative); Leukocyte Negative Leu/uL (Negative); Nitrite Negative (Negative); Protein, Urine (Dipstick) 20 mg/dL (Neg-Trace); Urobilinogen Normal mg/dL (Less than 2)
[2021-02-03] MEDS ORDERED: Vancomycin 1 GM/200 ML BAG ONE (06:25)
[2021-02-03] MEDS ORDERED: Ondansetron PF 4 MG/2 ML Vial IVP PRN (07:32)
[2021-02-03] MEDS ORDERED: Senokot S 8.6-50 MG TAB PO PRN (07:32)
[2021-02-03 07:35] LABS: SARS-CoV-2 NAA Rapid Test Not Detected (NotDetected)
[2021-02-03] MEDS ORDERED: Morphine 2 MG/ML VIAL SLOW IVP PRN (07:37)
[2021-02-03] MEDS ORDERED: Melatonin 3 MG TAB PO PRN (07:37)
[2021-02-03] MEDS ORDERED: Morphine 4 MG/ML VIAL SLOW IVP PRN (07:50)
[2021-02-03 07:54] VITALS: BMI 30.7
[2021-02-03] MEDS ORDERED: Vancomycin HCl 750 MG in Sodium Chloride 0.9% 250 ML 250 ML IVPB SCH (08:30)
[2021-02-03] MEDS ORDERED: Enoxaparin Sodium 40 MG/0.4 ML SYRINGE ONE (08:48)
[2021-02-03] MEDS ORDERED: Famotidine 20 MG TAB ONE (08:50)
[2021-02-03] MEDS: Enoxaparin Sodium 40 MG/0.4 ML SYRINGE SC SCH (08:56)
[2021-02-03] MEDS: Famotidine 20 MG TAB PO SCH ×2 (08:56→20:36)
[2021-02-03] MEDS ORDERED: Polyethylene Glycol 3350 17 GM Packet PO PRN (09:14)
[2021-02-03] MEDS: Sodium Chloride 0.9% 1,000 ML IV SCH (10:42)
[2021-02-03] MEDS: Morphine 4 MG/ML VIAL SLOW IVP PRN (13:24)
[2021-02-03] MEDS ORDERED: FLU VACC QS2021-22(6MOS UP)/PF 60 MCG/0.5 ML SYRINGE IM ONE (15:00)
[2021-02-03] MEDS: Mycophenolate ER 180 MG TAB PO SCH (17:16)
[2021-02-03] MEDS: Carvedilol 6.25 MG TAB PO SCH (17:16)
[2021-02-03] MEDS: Cefepime 2 GM in Sodium Chloride 0.9% 100 ML IVPB SCH (17:18)
[2021-02-03] MEDS: Magnesium Oxide 400 MG TAB PO SCH (20:36)
[2021-02-03] MEDS: Tacrolimus 1 MG CAP PO SCH (20:37)
[2021-02-03] MEDS: Acetaminophen 325 MG TAB PO PRN (20:39)
[2021-02-04] MEDS: Sodium Chloride 0.9% 1,000 ML IV SCH (00:51)
[2021-02-04 04:12] LABS: #Eosinphils 0.1 thou/uL (0.0-0.7); #Lymphocytes 0.7 thou/uL (1.20-3.40); #Monocytes 1.1 thou/uL (0.11-0.59); #Neutrophils 8.2 thou/uL (1.40-6.50); %Basophils 0.1 % (0.0-1.0); %Eosinophils 1.4 % (0.0-10.0); %Lymphocytes 7.1 % (21.0-51.0); %Monocytes 10.9 % (0.0-10.0); %Neutrophils 80.5 % (42.0-75.0); Mean Corpuscular HGB CONC 34.4 g/dL (32.0-36.0); Mean Corpuscular Hemoglobin 32.4 pg (27.0-31.0); Platelet Count 230 thou/uL (130-400); Red Blood Cell (RBC) Count 3.72 mill/uL (4.70-6.10); White Blood Cell (WBC) Count 10.2 thou/uL (4.8-10.8)
[2021-02-04 04:39] LABS: Albumin 3.5 g/dL (3.5-5.0)
[2021-02-04 04:40] LABS: Chloride 107 mmol/L (98-107); Potassium 4.3 mmol/L (3.5-5.1); Sodium 135 mmol/L (136-145)
[2021-02-04 04:41] LABS: Calcium 8.4 mg/dL (7.8-10.44)
[2021-02-04 04:42] LABS: Glucose 131 mg/dL (70-105); Protein, Total 5.5 g/dL (6.0-8.3)
[2021-02-04 04:43] LABS: Anion Gap 10 mmol/L (10-20); Bilirubin, Total 0.8 mg/dL (0.2-1.2); Carbon Dioxide 22 mmol/L (22-29)
[2021-02-04 04:44] LABS: Alkaline Phosphatase 87 U/L (40-110)
[2021-02-04 04:45] LABS: Calc. Creatinine Clearance 87 mL/min (70-130)
[2021-02-04 04:46] LABS: BUN (Urea Nitrogen) 16 mg/dL (8.4-25.7)
[2021-02-04 04:47] LABS: AST (SGOT) 13 U/L (5-34)
[2021-02-04 04:48] LABS: ALT (SGPT) 18 U/L (8-55)
[2021-02-04] MEDS ORDERED: VANCOMYCIN 1.75 GM/350 ML BAG 1.75 GM in Premix Bag 1 BAG IVPB SCH (06:00)
[2021-02-04] MEDS: Cefepime 2 GM in Sodium Chloride 0.9% 100 ML IVPB SCH ×2 (06:47→17:30)
[2021-02-04] MEDS: Morphine 4 MG/ML VIAL SLOW IVP PRN (06:49)
[2021-02-04] MEDS: Famotidine 20 MG TAB PO SCH ×3 (08:02→20:48)
[2021-02-04] MEDS: Aspirin 81 mg Enteric Coated Tablet PO SCH (08:02)
[2021-02-04] MEDS: Tacrolimus 1 MG CAP PO SCH ×2 (08:02→20:48)
[2021-02-04] MEDS: predniSONE 5 MG TAB PO SCH (08:02)
[2021-02-04] MEDS: Mycophenolate ER 180 MG TAB PO SCH ×2 (08:03→17:31)
[2021-02-04] MEDS: Tamsulosin HCl 0.4 MG CAP PO SCH (08:03)
[2021-02-04] MEDS: Carvedilol 6.25 MG TAB PO SCH ×2 (08:04→17:31)
[2021-02-04] MEDS: Amlodipine 5 MG TAB PO SCH (08:04)
[2021-02-04] MEDS: Sulfameth/Trimethoprim SS 400-80MG TAB PO SCH (08:04)
[2021-02-04] MEDS: Magnesium Oxide 400 MG TAB PO SCH ×2 (08:04→20:48)
[2021-02-04] MEDS: Enoxaparin Sodium 40 MG/0.4 ML SYRINGE SC SCH (08:05)
[2021-02-04] MEDS ORDERED: Lidocaine 1% w/Epinephrine 1:100K 20 ML VIAL ONE (15:55)
[2021-02-04] MEDS ORDERED: Bupivacaine 0.25% HCL 30 ML VIAL ONE (15:55)
[2021-02-04] MEDS ORDERED: Lidocaine 1% PF 5 ML VIAL ONE (16:30)
[2021-02-04] MEDS ORDERED: Propofol 500 MG/50 ML VIAL ONE (16:37)
[2021-02-04] MEDS ORDERED: traMADol HCl 50 MG TAB PO PRN (16:59)
[2021-02-04] MEDS: hydrALAZINE 20 MG/ML VIAL SLOW IVP PRN (21:53)
[2021-02-05] MEDS: hydrALAZINE 20 MG/ML VIAL SLOW IVP PRN (04:09)
[2021-02-05] MEDS: Acetaminophen 325 MG TAB PO PRN (04:09)
[2021-02-05] MEDS: Cefepime 2 GM in Sodium Chloride 0.9% 100 ML IVPB SCH (05:26)
[2021-02-05] MEDS: Mycophenolate ER 180 MG TAB PO SCH (07:52)
[2021-02-05] MEDS: Enoxaparin Sodium 40 MG/0.4 ML SYRINGE SC SCH (07:52)
[2021-02-05] MEDS: Amlodipine 5 MG TAB PO SCH (07:54)
[2021-02-05] MEDS: Famotidine 20 MG TAB PO SCH ×2 (07:54→07:56)
[2021-02-05] MEDS: Tacrolimus 1 MG CAP PO SCH (07:54)
[2021-02-05] MEDS: Aspirin 81 mg Enteric Coated Tablet PO SCH (07:54)
[2021-02-05] MEDS: predniSONE 5 MG TAB PO SCH ×2 (07:54→07:55)
[2021-02-05] MEDS: Magnesium Oxide 400 MG TAB PO SCH (07:55)
[2021-02-05] MEDS: Tamsulosin HCl 0.4 MG CAP PO SCH (07:55)
[2021-02-05] MEDS: Sulfameth/Trimethoprim SS 400-80MG TAB PO SCH (07:55)
[2021-02-05] MEDS: Carvedilol 6.25 MG TAB PO SCH (07:55)
[2021-02-05 12:20] LABS: Anion Gap 12 mmol/L (10-20); BUN (Urea Nitrogen) 18 mg/dL (8.4-25.7); Calc. Creatinine Clearance 80 mL/min (70-130); Calcium 8.8 mg/dL (7.8-10.44); Carbon Dioxide 22 mmol/L (22-29); Chloride 103 mmol/L (98-107); Glucose 210 mg/dL (70-105); Sodium 133 mmol/L (136-145)
[2021-02-05 12:32] VITALS: BP 160/75; TEMP 98.2
[2021-02-05] MEDS: Morphine 4 MG/ML VIAL SLOW IVP PRN (12:48)
[2021-02-06 15:14] LABS: Tacrolimus 5.6 ng/mL (2.0-20.0)
== END 2021-02-05 14:55 | disposition home or self-care (01) | DRG 391 ==
LOC: ERS 00:19 → ERHOLD 05:26 → ONC 10:09
PROVIDERS: ADMIT Student in an Organized Health Care Education/Training Program; ATTEND Internal Medicine
PROC: 0WPGX3Z Removal of Infusion Device from Peritoneal Cavity, External Approach (ICD-10-PCS; principal; 2021-02-04)
DX: R10.9 Unspecified abdominal pain (principal); J18.9 Pneumonia, unspecified organism; T86.12 Kidney transplant failure; E87.2 Acidosis; N17.9 Acute kidney failure, unspecified; E78.5 Hyperlipidemia, unspecified; I12.9 Hypertensive chronic kidney disease with stage 1 through stage 4 chronic kidney disease, or unspecified chronic kidney disease; F41.9 Anxiety disorder, unspecified; E66.9 Obesity, unspecified; N18.30 Chronic kidney disease, stage 3 unspecified; E88.09 Other disorders of plasma-protein metabolism, not elsewhere classified; Z20.822 Contact with and (suspected) exposure to COVID-19; Y83.0 Surgical operation with transplant of whole organ as the cause of abnormal reaction of the patient, or of later complication, without mention of misadventure at the time of the procedure; F32.9 Major depressive disorder, single episode, unspecified; Z79.82 Long term (current) use of aspirin; Z79.899 Other long term (current) drug therapy; Z68.30 Body mass index [BMI] 30.0-30.9, adult
CPT/HCPCS: 36415; 74176; 76770; 80048; 80053; 80197; 81003; 83690; 85025; 87040; 93005; 96365; 96366; 96367; 96375; 96376; J0360; J0692; J1650; J2270; J2405; J2704; J3370; J3490; J7050; J7507; J7512; J7518; J8499; S0020; U0002

== ENCOUNTER 2022-10-20 10:57 | Emergency (ER) | payer MEDICARE ==
[2022-10-20 11:31] LABS: #Eosinphils 0.2 thou/uL (0.0-0.7); #Monocytes 0.8 thou/uL (0.11-0.59); #Neutrophils 6.3 thou/uL (1.40-6.50); %Basophils 0.5 % (0.0-1.0); %Eosinophils 2.5 % (0.0-10.0); %Lymphocytes 12.1 % (21.0-51.0); %Monocytes 9.9 % (0.0-10.0); %Neutrophils 74.5 % (42.0-75.0); Hemoglobin 13.7 g/dL (14.0-18.0); Mean Corpuscular HGB CONC 33.2 g/dL (32.0-36.0); Mean Corpuscular Hemoglobin 30.1 pg (27.0-31.0); Mean Corpuscular Volume 90.8 fl (78.0-98.0); Mean Platelet Volume 9.4 fL (7.4-10.4); Platelet Count 223 10x3/uL (130-400); RBC Distribution Width 13.4 % (11.5-14.5); Red Blood Cell (RBC) Count 4.55 mill/uL (4.70-6.10); White Blood Cell (WBC) Count 8.4 10x3/uL (4.8-10.8)
[2022-10-20 11:59] LABS: ALT (SGPT) 29 U/L (8-55); AST (SGOT) 15 U/L (5-34); Albumin 4.2 g/dL (3.5-5.0); Alkaline Phosphatase 86 U/L (40-110); Anion Gap 13 mmol/L (10-20); BUN (Urea Nitrogen) 26 mg/dL (8.4-25.7); Bilirubin, Total 0.4 mg/dL (0.2-1.2); Calc. Creatinine Clearance 0 mL/min (70-130); Calcium 9.3 mg/dL (7.8-10.44); Carbon Dioxide 22 mmol/L (22-29); Chloride 104 mmol/L (98-107); Estimated GFR 80; Globulin 2.2 g/dL (2.4-3.5); Glucose 144 mg/dL (70-105); Potassium 4.2 mmol/L (3.5-5.1); Protein, Total 6.4 g/dL (6.0-8.3); Sodium 135 mmol/L (136-145)
[2022-10-20] MEDS ORDERED: Iopamidol-370 76% 500 ML MDV (1 ML CHARGE) ONE (12:53)
== END 2022-10-20 14:13 | disposition home or self-care (01) ==
LOC: ERS 10:57
DX: J18.9 Pneumonia, unspecified organism (principal); E78.00 Pure hypercholesterolemia, unspecified; I10 Essential (primary) hypertension; Z79.899 Other long term (current) drug therapy
CPT/HCPCS: 36415; 71045; 71275; 80053; 84484; 85025; 93005; 94760; Q9967

== ENCOUNTER 2024-01-22 19:30 | Inpatient (IN) | payer OTHER ==
[2024-01-22 20:06] LABS: #Basophils 0.03 10x3/uL (0.0-0.2); %Basophils 0.3 % (0.0-1.0); %Eosinophils 1.3 % (0.0-10.0); %Monocytes 8.4 % (0.0-10.0); %Neutrophils 76.7 % (42.0-75.0); Hemoglobin 13.2 g/dL (14.0-18.0); Mean Corpuscular HGB CONC 32.2 g/dL (32.0-36.0); Mean Corpuscular Hemoglobin 30.4 pg (27.0-31.0); Mean Corpuscular Volume 94.5 fL (78.0-98.0); Mean Platelet Volume 9.2 fL (7.4-10.4); Platelet Count 218 10x3/uL (130-400); RBC Distribution Width 13.2 % (11.5-14.5); Red Blood Cell (RBC) Count 4.34 mill/uL (4.70-6.10)
[2024-01-22 20:21] LABS: ALT (SGPT) 15 U/L (8-55); AST (SGOT) 11 U/L (5-34); Albumin 3.9 g/dL (3.5-5.0); Alkaline Phosphatase 81 U/L (40-110); Anion Gap 14 mmol/L (10-20); BUN (Urea Nitrogen) 34 mg/dL (8.4-25.7); Bilirubin, Total 0.3 mg/dL (0.2-1.2); Calc. Creatinine Clearance 0 mL/min (70-130); Calcium 9.6 mg/dL (7.8-10.44); Carbon Dioxide 21 mmol/L (22-29); Chloride 107 mmol/L (98-107); Estimated GFR 36; Globulin 2.4 g/dL (2.4-3.5); Glucose 147 mg/dL (70-105); Potassium 4.8 mmol/L (3.5-5.1); Protein, Total 6.3 g/dL (6.0-8.3); Sodium 137 mmol/L (136-145)
[2024-01-22 20:25] LABS: Troponin I 0.011 ng/mL (< 0.028)
[2024-01-22] MEDS ORDERED: Nitroglycerin 2% Ointment 1 INCH/1 GM Packet ONE (21:33)
[2024-01-22] MEDS ORDERED: Aspirin Chewable 81 MG TAB ONE (21:33)
[2024-01-22] MEDS ORDERED: Ondansetron PF 4 MG/2 ML Vial IVP PRN (21:56)
[2024-01-22] MEDS ORDERED: Calcium Carbonate 500 MG ChewTAB PO PRN (21:56)
[2024-01-22] MEDS ORDERED: Senokot S 8.6-50 MG TAB PO PRN (21:56)
[2024-01-22] MEDS ORDERED: Morphine 2 MG/ML VIAL SLOW IVP PRN (22:00)
[2024-01-22 23:35] VITALS: BMI 34.0
[2024-01-23] MEDS: Albumin 25% 25 GM (100 mL) BOT IVPB SCH (00:13)
[2024-01-23] MEDS: Sodium Chloride 0.9% 1,000 ML IV SCH (00:14)
[2024-01-23 00:20] LABS: Troponin I 0.025 ng/mL (< 0.028)
[2024-01-23 02:33] LABS: Troponin I Less than 0.010 ng/mL (< 0.028)
[2024-01-23 06:25] LABS: #Basophils 0.03 10x3/uL (0.0-0.2); %Basophils 0.5 % (0.0-1.0); %Eosinophils 3.2 % (0.0-10.0); %Lymphocytes 17.7 % (21.0-51.0); %Monocytes 11.5 % (0.0-10.0); %Neutrophils 66.8 % (42.0-75.0); Hematocrit 37.2 % (42.0-52.0); Hemoglobin 12.2 g/dL (14.0-18.0); Mean Corpuscular HGB CONC 32.8 g/dL (32.0-36.0); Mean Corpuscular Hemoglobin 30.7 pg (27.0-31.0); Mean Corpuscular Volume 93.7 fL (78.0-98.0); Mean Platelet Volume 9.4 fL (7.4-10.4); Platelet Count 198 10x3/uL (130-400); RBC Distribution Width 13.5 % (11.5-14.5); Red Blood Cell (RBC) Count 3.97 mill/uL (4.70-6.10)
[2024-01-23 06:50] LABS: Hemoglobin A1c 6.3 % (4.0-6.0)
[2024-01-23 06:58] LABS: ALT (SGPT) 13 U/L (8-55); AST (SGOT) 9 U/L (5-34); Albumin 3.6 g/dL (3.5-5.0); Alkaline Phosphatase 61 U/L (40-110); Anion Gap 11 mmol/L (10-20); BUN (Urea Nitrogen) 29 mg/dL (8.4-25.7); Bilirubin, Total 0.4 mg/dL (0.2-1.2); Calc. Creatinine Clearance 81 mL/min (70-130); Calcium 8.8 mg/dL (7.8-10.44); Carbon Dioxide 21 mmol/L (22-29); Cardiac Risk 4.5 (Less than 4.5); Chloride 111 mmol/L (98-107); Cholesterol 170 mg/dl (< 200 Desired); Estimated GFR 64; Glucose 115 mg/dL (70-105); HDL Cholesterol 38 mg/dL (>60 Neg Risk); LDL Cholesterol, Calculated 98 mg/dL; Potassium 4.1 mmol/L (3.5-5.1); Protein, Total 5.6 g/dL (6.0-8.3); Sodium 139 mmol/L (136-145); Triglycerides 171 mg/dL (Less than 150)
[2024-01-23] MEDS ORDERED: Carvedilol 6.25 MG TAB PO SCH (09:00)
[2024-01-23] MEDS ORDERED: Tacrolimus 0.5 MG CAP PO SCH (09:00)
[2024-01-23] MEDS ORDERED: Tacrolimus 1 MG CAP PO SCH (09:00)
[2024-01-23] MEDS: Tacrolimus 0.5 MG CAP PO SCH (10:19)
[2024-01-23] MEDS: predniSONE 5 MG TAB PO SCH (10:19)
[2024-01-23] MEDS: Aspirin 81 mg Enteric Coated Tablet PO SCH (10:19)
[2024-01-23] MEDS: Tamsulosin HCl 0.4 MG CAP PO SCH (10:19)
[2024-01-23] MEDS: Amlodipine 5 MG TAB PO SCH ×2 (10:20→15:10)
[2024-01-23] MEDS: NIFEdipine XL 60 MG ER.TAB PO SCH (10:20)
[2024-01-23] MEDS: Carvedilol 25 MG TAB PO SCH (10:20)
[2024-01-23] MEDS: Heparin 5,000 UNITS/ML VIAL SC SCH (10:27)
[2024-01-23] MEDS: hydrALAZINE 25 MG TAB PO SCH (10:27)
[2024-01-23] MEDS: Mycophenolate DR 180 MG TAB PO SCH (11:50)
[2024-01-23] MEDS: Atorvastatin Calcium 10 MG TAB PO SCH (21:24)
[2024-01-24] MEDS: Acetaminophen 325 MG TAB PO PRN (08:47)
[2024-01-24] MEDS: NIFEdipine XL 90 MG ER.TAB PO SCH (08:47)
[2024-01-25 07:29] LABS: #Basophils 0.03 10x3/uL (0.0-0.2); %Basophils 0.4 % (0.0-1.0); %Eosinophils 2.2 % (0.0-10.0); %Lymphocytes 15.3 % (21.0-51.0); %Monocytes 10.4 % (0.0-10.0); %Neutrophils 71.3 % (42.0-75.0); Hematocrit 41.8 % (42.0-52.0); Hemoglobin 13.5 g/dL (14.0-18.0); Mean Corpuscular HGB CONC 32.3 g/dL (32.0-36.0); Mean Corpuscular Hemoglobin 30.5 pg (27.0-31.0); Mean Corpuscular Volume 94.4 fL (78.0-98.0); Platelet Count 225 10x3/uL (130-400); RBC Distribution Width 13.3 % (11.5-14.5); Red Blood Cell (RBC) Count 4.43 mill/uL (4.70-6.10)
[2024-01-25 07:51] LABS: ALT (SGPT) 13 U/L (8-55); AST (SGOT) 14 U/L (5-34); Albumin 4.3 g/dL (3.5-5.0); Alkaline Phosphatase 59 U/L (40-110); Anion Gap 13 mmol/L (10-20); BUN (Urea Nitrogen) 24 mg/dL (8.4-25.7); Bilirubin, Total 0.6 mg/dL (0.2-1.2); Calc. Creatinine Clearance 91 mL/min (70-130); Calcium 9.7 mg/dL (7.8-10.44); Carbon Dioxide 18 mmol/L (22-29); Chloride 111 mmol/L (98-107); Estimated GFR 74; Globulin 2.1 g/dL (2.4-3.5); Glucose 103 mg/dL (70-105); Potassium 4.3 mmol/L (3.5-5.1); Protein, Total 6.4 g/dL (6.0-8.3); Sodium 138 mmol/L (136-145)
[2024-01-25] MEDS ORDERED: Regadenoson 0.4 MG/5 ML SYRINGE ONE (10:54)
[2024-01-25 16:58] VITALS: BP 121/77; TEMP 98.2
[2024-01-26 12:12] LABS: Tacrolimus 6.4 ng/mL (2.0-20.0)
== END 2024-01-25 17:08 | disposition home or self-care (01) | DRG 313 ==
LOC: SUATTDRO 19:30 → ERS 19:30 → 2SW 21:49 → OBSVTOIN 01-24 11:36
PROVIDERS: ADMIT Internal Medicine; ATTEND Hospitalist
DX: R07.89 Other chest pain (principal); N17.9 Acute kidney failure, unspecified; Z94.0 Kidney transplant status; D84.9 Immunodeficiency, unspecified; N18.9 Chronic kidney disease, unspecified; I12.9 Hypertensive chronic kidney disease with stage 1 through stage 4 chronic kidney disease, or unspecified chronic kidney disease; Z79.82 Long term (current) use of aspirin; Z79.01 Long term (current) use of anticoagulants
CPT/HCPCS: 36415; 71045; 78452; 80053; 80061; 80197; 83036; 83880; 84484; 85025; 93005; 93017; 96365; 96372; 96376; A9502; G0378; J1644; J2785; J7030; J7507; J7512; J7518; J8499; P9047